=== PATIENT | male | born 1955 | race Caucasian/White ===

== ENCOUNTER 2023-05-28 13:22 | Inpatient (IN) | payer MEDICARE, SELFPAY ==
[2023-05-28] VITALS (31 sets, daily range): BP systolic 95–160; BP diastolic 58–139; BMI 24.1; BMI 23.6
[2023-05-28 11:15] LABS: % Basophils 0.5 % (0-2); % Eosinophils 0.5 % (0-6); % Immature Granulocytes 0.2 % (0-0.5); % Lymphocytes 23.6 % (20.5-51.1); % Monocytes 7.5 % (1.7-9.3); % Neutrophils 67.7 % (42.2-75.2); Absolute Lymphocytes 1.6 10^3/uL (1.2-3.4); Absolute Monocytes 0.5 10^3/uL (0.1-0.6); Absolute Neutrophils 4.5 10^3/uL (1.4-6.5); Mean Corp Hgb Conc. 30.3 g/dL (33.0-37.0); Mean Corpuscular Hgb 24.4 pg (27.0-31.0); Mean Corpuscular Volume 80.5 fL (80.0-94.0); Mean Platelet Volume 8.8 fL (7.4-10.4); Nucleated Red Blood Cells % 0.3 % (-); Platelet Count 428 10^3/uL (130-400); Red Blood Cell Count 2.21 10^6/uL (4.70-6.10); Red Cell Dist. Width 16.8 % (11.5-14.5); White Blood Cell Count 6.7 10^3/uL (4.8-10.8)
[2023-05-28 11:24] LABS: INR 1.05
[2023-05-28 11:25] LABS: ALT (SGPT) 23 U/L (0-50); AST (SGOT) 27 U/L (17-59); Albumin 3.9 g/dl (3.5-5.0); Alkaline Phosphatase 121 U/L (38-126); Blood Urea Nitrogen 19 mg/dl (9-20); Calcium 8.7 mg/dl (8.4-10.2); Carbon Dioxide 23 mmol/L (22-30); Chloride 108 mmol/L (98-107); Estimated Creatinine Clearance 83 ml/min; Glucose 107 mg/dl (70-99); Potassium 4.1 mmol/L (3.5-5.1); Sodium 137 mmol/L (135-145); Total Bilirubin 0.5 mg/dl (0.2-1.3); Total Protein 6.6 g/dl (6.3-8.2); eGFR > 60.00
[2023-05-28 11:31] LABS: Hematocrit 17.8 % (39.0-52.0); Hemoglobin 5.4 g/dL (13.0-18.0)
[2023-05-28 11:39] LABS: Troponin I 0.416 ng/ml
--- NOTE | 2023-05-28 11:56 | ED.GENMED ---
History of Present Illness
General
Chief Complaint: Cardiac Symptoms
Source: patient and physician
Exam Limitations: none
Time Seen by Provider: 05/28/23 11:04
Nursing documentation reviewed up to this point in time: agreed with
Travel History
Have you had any contact with someone who has COVID-19?: No
Do you have any symptoms of coronavirus? Fever > 100 degrees, chills, cough, shortness of breath, sore throat, loss of taste or smell, muscle aches, or headache?: No
History of Present Illness
History of Present Illness:
67-year-old male presents emergency department due to intermittent chest pain and shortness of breath. He was seen in the office at Dr. Mcginnis, and sent to the emergency department. He is to get a CABG. He denies any chest pain at this time.
Initial EKG was concerning for a STEMI. Discussed with Dr. Mcginnis, who did not suspect that it was a STEMI. He suspects LVH. Patient denies blood in his stool.
Past History
Past History
ED Past Medical History: None
ED Past Surgical History: Cardiac (Cardiac catheterization) and Other (Carotid stent)
Social History
Tobacco: Smoker
Personal: Single
Living: with roommate
Employment: Employed
Review of Systems
Review of Systems
Allergies reviewed?: Yes
All Other Systems: Not applicable
Constitutional: Reports fatigue
EENT: Reports no symptoms
Respiratory: Reports trouble breathing
Cardiac: Reports chest pain
ABD/GI: Reports no symptoms; Denies bloody stools or black stools
: Reports no symptoms
Musculoskeletal: Reports no symptoms
Skin: Reports no symptoms
Neurological: Reports no symptoms
Endocrine: Reports no symptoms
Hematologic/Lymphatic: Reports no symptoms
Psychiatric: Reports no symptoms
Phy Exam
Physical Exam
Physical Exam:
Physical Exam
General: no apparent distress, not acutely ill
Neck: supple. no meningeal signs. normal posterior pharynx
Heart: s1/s2 regular rate and rhythm, no murmur. equal radial
pulses.
HEENT: Pupils equal round reactive to light, EOMI
Lungs: no acute respiratory distress. clear bilaterally
Abdomen: normal bowel sounds. not tender. no CVAT
Neuro: alert and oriented. no focal neurological deficits cranial nerves II through XII intact
Skin: no rash, pale
Psychiatric: well kept. interactive and cooperative
Extremities: no edema. no calf tenderness. negative homans. good distal pulses
Scores
Heart Score for Chest Pain Patients
STEMI patient?: No
History: Highly Suspicious
ECG: Significant ST-Depression
Age: >/= 65 years
Risk Factors: >/= 3 Risk Factors or History of CAD
Troponin: >/= 3 x Normal Limit
Heart Score for Chest Pain Patients: 10
Heart Score Risk: 72.7 % MACE over next 6 weeks
Course
Orders/Labs/Results
Orders:
Orders
05/28/23 10:44
EKG [Electrocardiogram (*1)] Urgent
Reason for Study: Chest Pain
EKG- Treatment ONCE
05/28/23 11:02
Cardiac Monitoring- Treatment ONCE
IV Insert/Care/Rem.- Treatment PRN
05/28/23 11:03
Complete Blood Count/With Diff Urgent
Comprehensive Metabolic Panel Urgent
PTT Urgent
Comment: ADD ON
Prothrombin Time Urgent
Troponin I Urgent
05/28/23 11:45
Add On- LAB Urgent
Tests Added?: ptt
Type+Screen Urgent
05/28/23 11:46
* Blood Bank Products Urgent
Blood Bank Products: *Packed RBC Leuko(PRBC's)
Quantity: 1
Transfuse Today: Yes
Reason: Anemia
Abnormal Lab Results
05/28/23
11:03
RBC 2.21 L 10^6/uL
(4.70-6.10)
Hgb 5.4 L* g/dL
(13.0-18.0)
Hct 17.8 L* %
(39.0-52.0)
MCH 24.4 L pg
(27.0-31.0)
MCHC 30.3 L g/dL
(33.0-37.0)
RDW 16.8 H %
(11.5-14.5)
Plt Count 428 H 10^3/uL
(130-400)
Chloride 108 H mmol/L
(98-107)
Glucose 107 H mg/dl
(70-99)
Troponin I 0.416 H* ng/ml
05/28/23 11:03
05/28/23 11:03
Vital Signs
Initial and Last Documented VS:
Initial Vital Signs
Temp Pulse Resp BP Pulse Ox
98.7 F 120 20 138/94 99
05/28/23 10:42 05/28/23 10:42 05/28/23 10:42 05/28/23 10:42 05/28/23 10:42
Last Documented Vital Signs
Temp Pulse Resp BP Pulse Ox
98.7 F 98 18 111/71 99
05/28/23 10:42 05/28/23 11:15 05/28/23 11:15 05/28/23 11:03 05/28/23 11:15
MDM/Problems Addressed
Differential Diagnosis Includes:
STEMI, ACS
MDM/Problems Addressed:
67-year-old male with unstable angina, anemia. Discussed with Dr. Mcginnis who does not suspect STEMI. Admit to hospitalist, will consult with cardiology and CT surgery for eventual CABG.
Chronic conditions affecting care: DM and CAD
Acute Exacerbation and/or Progression of Chronic Illness: DM and CAD
*Pulse Oximetry
Patient hypoxic: no
*EKG
Interpreted by ED Provider?: Yes
EKG Intrepretation Date: 05/28/23
EKG Intrepretation Time: 10:54
Interpretation: abnormal
Comparison EKG: changes noted
Heart Rate: 103
Rate: tachycardiac
Rhythm: sinus
[place]: normal axis
Interval: normal interval
QRS Pattern: left vent hypertrophy
Ischemia: ST elevation
*Supervisor Hand Silvering Interpretation
Rate: normal
Interpretation: normal
Heart Rate: 95
Rhythm: sinus
*Critical Care Note
Total Time (30-74mins, 75-104mins- exclusive of procedures): 30
comment:
Critical care statement: A total of 30 minutes of critical care time was provided for this patient. This includes management of unstable vital signs, evaluation of the patient at bedside, reviewing the patient's pertinent medical records, discussion
with consultants, review of old EKGs and review of pertinent medical records. This time with separate from time utilized to perform the aforementioned documented procedures
Data Reviewed
Review of Other/Old Records Reveals: Operative Reports (Prior vascular stent placed in carotid artery by Dr. Triplett 04/14/2023)
Source: records
Patient Management
Discussion with other providers: Hospitalist and Machine Striper (Cardiology)
Escalation/DeEscalation of care consider admission/obs:
Admission indicated
ED Attending Note
-
Portions of this chart may have been created with voice recognition software.� Occasional wrong word or��sound alike� substitutions may have occurred due to the inherent limitations of voice recognition software.
Discharge Plan
Departure
Patient Disposition: Admit
Date of Disposition: 05/28/23
Time of Disposition: 11:43
Admit to: IVU
Presentation/result/management discussed w/ accepting MD/DO: Hospitalist
Patient with high blood pressure during this ER visit?: Yes
Condition: Good
Discharge Problem:
Anemia, Non-ST elevation WA (NSTEMI)
Prescriptions:
No Action
atorvastatin 80 mg Tablet
80 mg PO QPM Qty: 30 0RF
thiamine HCl (vitamin B1) 100 mg Tablet
100 mg PO BID Qty: 60 0RF
aspirin 81 mg Tablet,Chewable
81 mg PO DAILY Qty: 60 0RF
folic acid 1 mg Tablet
1 mg PO DAILY Qty: 30 0RF
metoprolol succinate 25 mg Tablet Extended Release 24 Hr
25 mg PO DAILY Qty: 30 0RF
Farxiga 10 mg Tablet
10 mg PO DAILY Qty: 30 0RF
clopidogrel [Plavix] 75 mg Tablet
75 mg PO DAILY
Referrals:
Darell Carver DO [Family Provider] -
Interventions
Interventions:
*Risk Screen - Suicide Last Done: 05/28/23 11:04
*General Assessment Last Done: 05/28/23 11:04
*Neglect/Abuse Screening Last Done: 05/28/23 11:04
ED- Fall Risk Assessment Last Done: 05/28/23 11:04
ED- Pulmonary Assessment Last Done: 05/28/23 11:04
ED- Cardiac Assessment Last Done: 05/28/23 11:04
--- NOTE | 2023-05-28 12:01 | PHANOTE ---
05/28/2023, [facility], spoke to pt. to obtain their medication history; pt. states that he stopped taking his Plavix 75 mg for about 3 days for his upcoming surgery. Additionally, pt. stopped taking his Atorvastatin, Folic Acid, and Metoprolol
Succinate on Thursday (05/26/2023) because he was not feeling well. Last dose of these meds. were Thursday (05/25/2023).
[2023-05-28 12:07] LABS: APTT 38.4 Sec (23.4-35.0)
--- NOTE | 2023-05-28 12:19 | HPS.HSE ---
Addendum entered and electronically signed by Eduard Ellis MD 05/28/23 14:39:
I saw and examined the patient.
The INSURANCE CASE MANAGER's note was reviewed and I agree with the note.
Patient is 67-year-old male with past medical history of CAD, Hypertension, Hyperlipidemia, systolic heart failure, history of tobacco/alcohol use, IDDM, recent right CEA was sent to ER for further evaluation as patient was having ongoing shortness
of breath/orthopnea for few weeks. Patient had left heart catheterization on 03/02/23 70% lesion in mild RCA, 80% lesion in distal left main, 80% and ostial circumflex and subtotal occlusion of proximal LAD percent lesion in origin at large obtuse
marginal. EF noted to be 30%. patient was planned to have an outpatient cardiothoracic surgery evaluation for surgical revascularization. For last few weeks patient noted to having some chest discomfort and required to take 1 dose of nitro
yesterday with improvement in symptoms. Patient was evaluated by cardiology in office today and was sent into ER for further evaluation. In ER lab workup showing patient significantly anemic with hemoglobin 5.5. Patient denies of having any
history of previous blood problems, no reported black stools or stacey blood in stool. From cardiac perspective patient is chest pain free. Denies any ongoing abd pain/nausea.
HEENT: No pallor, cyanosis, or jaundice. Throat clear.
NECK: Supple. No JVD.
RESPIRATORY: Lungs clear to auscultation.
CVS: S1, S2 normal. RRR. No murmur, rub or gallop.
ABDOMEN: Soft, non-tender. No distension. BS+/normal.
EXTREMITIES: No peripheral cyanosis or edema.
SOLE MOLDING MACHINE OPERATOR: AOx3. No focal deficits.
Unstable angina
CAD
Chronic Systolic HF
Troponin elevation
-Ongoing complaints of orthopnea/shortness of breath and periodic chest discomfort. Required to take nitro yesterday.
- troponin elevated to 0.4 > repeat ordered
-EKG assessment elevation in anteroseptal leads, discussed with cardiology and somewhat of a chronic finding. (present on previous EKG)
-Patient anemic requiring blood transfusion in ER. Discussed with cardiology and recommendation for continuation of antiplatelet therapy.
-TTE yesterday showing EF 25 to 30%. Mild MR/
-cardio following
Iron def anemia
-SI 31 and saturation 6%, Ferriting pending
-hbg ~ 5.5 - getting 2 u prbc
-FOBT neg in ER
-discussed with GI and will require eventual endoscopic evaluation
Full code
Original Note:
Family Physician
-
Family Physician: Darell Carver
Chief Complaint
-
Chest pain, shortness of breath, MARTINEZ, orthopnea
History of Present Illness
67-year-old male sent from [facility] cardiology for unstable angina. On arrival to the ER was noted to have NSTEMI with troponin of 0.416 and anemic hemoglobin 5.4 guaiac negative. He was noted to be anemic 8.2 postop CEA on 04/15/2023. The patient
reports he has had chest pain midsternal to left axilla on and off for the past 3 weeks worsening over the past several days with shortness of breath, MARTINEZ and orthopnea. Last night he reports profound orthopnea and had to sleep upright to help
alleviate chest pain. He reports last week he took 1 nitroglycerin that helped with his chest pain. He states he had outpatient cardiac cath in February and was told he needed a CABG x 4 vessel repair. He currently denies chest pain at the moment,
headache, dizziness, cough, fever, chills, abdominal pain, nausea, vomiting, diarrhea, black stools. He is status post right CEA on 04/15/2023.
He has past medical history of severe CAD/IL/cardiac cath 02/20/2023, ischemic cardiomyopathy, nicotine abuse, alcohol abuse, HLD, DM2, right hand skin cancer with removal
Medical History
Past Medical History
Past Medical History: Reports Other
Additional Past Medical History:
severe CAD/IL/cardiac cath 02/20/2023, ischemic cardiomyopathy, nicotine abuse, alcohol abuse, HLD, DM2, right hand skin cancer with removal
Past Surgical History: Reports Other (Right CEA 04/15/2023)
Social History
Tobacco: Former Smoker (50 years 1 to 3 pack/day stopped 5 days ago 05/23/2023, stopped marijuana use x 50 years April 27, 2023)
Alcohol: Former (6-8 beers daily x 40 years stopped February 2023)
Personal: Single
Living: Alone
Employment: Not Employed
Family History
Family History: Other (Mother age 80s unsure, father [place] also history DM2 age 68 siblings unknown)
Allergies / Home Medications
Allergies reflects when Allergies were last updated in [employer].
Home Medications with original date entered in [employer]
Allergy/Medication List:
Allergies
Allergy/AdvReac Type Severity Reaction Status Date / Time
No Known Allergies Allergy Verified 04/14/23 07:22
Home Medications
folic acid 1 mg tablet 1 mg PO DAILY #30 tabs 03/03/23
metoprolol succinate 25 mg tablet,extended release 24 hr 25 mg PO DAILY #30 tabs 03/03/23
thiamine HCl (vitamin B1) 100 mg tablet 100 mg PO BID #60 tabs 03/03/23
clopidogrel 75 mg tablet (Plavix) 75 mg PO DAILY Blood Clot Prevention/Tx 04/10/23
aspirin 81 mg tablet,delayed release 81 mg PO DAILY 05/28/23
atorvastatin 80 mg tablet 80 mg PO HS 05/28/23
dapagliflozin propanediol 5 mg tablet (Farxiga) 5 mg PO DAILY 05/28/23
isosorbide mononitrate 30 mg tablet,extended release 24 hr 30 mg PO DAILY 05/28/23
nitroglycerin 0.4 mg sublingual tablet 0.4 mg sublingual [id number] PRN chest pain 05/28/23
Review of Systems
-
History Source: Patient
A 12 point ROS was completed and negative except as noted: Yes
Constitutional: Reports Fatigue; Denies Fever or Chills
EENT: Denies Sore Throat or Runny Nose
Respiratory: Reports Trouble Breathing (MARTINEZ, orthopnea); Denies Cough
Cardiac: Reports Chest Pain (Midsternal to left axilla); Denies Diaphoresis, Palpitations or Syncope
Abdomen/GI: Denies Abdominal Pain, Nausea, Vomiting, Diarrhea, Constipated, Bloody Stools or Black Stools
: Denies Dysuria, Frequency, Flank Pain, Incontinence or Difficulty Voiding
Musculoskeletal: Denies Joint Pain or Edema
Skin: Denies Itching or Rash
Neurological: Denies Dizzy, Headache or Weakness
Endocrine: Reports No Symptoms
Hematologic/Lymphatic: Reports No Symptoms
Psych: Reports Calm
Physical Exam
Vital Signs
Vital Signs
Temp Pulse Resp BP Pulse Ox
98.7 F 98 18 111/71 99
05/28/23 10:42 05/28/23 11:15 05/28/23 11:15 05/28/23 11:03 05/28/23 11:15
Physical Exam
General: Comfortable and Conversant; No Pain, Fever or Chills
HEENT: NormoCephalic, Anicteric, PERRLA and No Ptosis
Respiratory: Clear; No Wheezes, Rales or Rhonchi
Cardiac: S1/S2 and Regular Rhythm; No Murmur, Rub, Gallop or Peripheral Edema
Breast: Deferred by me
GI: Soft, Non Tender, Non Distended, Normal Bowel Sounds and No Hepatosplenomegaly
Rectal: Hem Negative (Per ER provider exam)
Genito-urinary: Deferred by me
Musculoskeletal: No Clubbing, No Cyanosis and No Edema
Skin: Warm, Dry and Other (Right-sided neck CEA incision intact negative drainage negative erythema); No Rash
Neuro: AO x 3, No Motor Deficits, Nonfocal/grossly intact and No Sensory Deficits; No Slurred Speech, Facial Droop or Tremors
Psych: Calm
Laboratory Results
-
05/28/23 11:03
05/28/23 11:03
Laboratory Results
PT 14.0 Sec (11.4-14.6) 05/28/23 11:03
INR 1.05 05/28/23 11:03
APTT 38.4 Sec (23.4-35.0) H 05/28/23 11:03
Total Bilirubin 0.5 mg/dl (0.2-1.3) 05/28/23 11:03
AST 27 U/L (17-59) 05/28/23 11:03
ALT 23 U/L (0-50) 05/28/23 11:03
Alkaline Phosphatase 121 U/L (38-126) 05/28/23 11:03
Troponin I 0.416 ng/ml H* 05/28/23 11:03
Impression/Plan
-
Impression/plan:
Admit to IVU
#ACUTE IL
#Hx severe CAD/IL -Hx cardiac cath 02/20/2023
BP 111/71, HR 98
-Troponin 0.416 will trend
-Trend EKGs
-Consult [facility] cardiology
-Consult CT surgery-was due for CABG x 4 vessel repair
-Patient for possible right heart cath once hemodynamically stable
-Aspirin 81 mg daily, Plavix 75 mg daily, Imdur 30 mg daily, metoprolol succinate 25 mg daily
#Hx ischemic cardiomyopathy
2D echo 05/27/2023: EF 25%, severely reduced LV function, mild TR/MR/ Hx of right carotid stenosis
#Symptomatic anemia
Hgb 5.4 stool guaiac negative Hgb 8.2 on 04/15/2023 postop right CEA prior baseline 11�12 in 02/2023
1 unit PRBC ordered in ER we will add additional 1 unit
-Check iron panel, B12, folate
#Former smoker
Smoked 60 years 1 to 3 pack/day -stopped 1 week ago in May
also marijuana use 60 years stopped April 2023
#Former alcohol abuse
Drinks 6-8 beers daily x 40 years stopped February 2023
#HLD
Check lipid profile
Continue atorvastatin 80 mg at bedtime
#DM 2
Accu-Cheks SSI, check HgbA1c
Right hand skin cancer removal
DVT prophylaxis
SCDs
Full code
[2023-05-28 14:12] LABS: Iron 31 ug/dl (49-181)
--- NOTE | 2023-05-28 14:20 | W.PN.CD ---
Today's Communication / Plan
-
Plan as noted
Impression / Plan
-
Primary trainer Dr. Parra
67-year-old male with history of multivessel coronary artery disease undergoing evaluation for CABG, ischemic cardiomyopathy, carotid disease, TCAR 04/14/2023 , hypertension, hypercholesterolemia, tobacco abuse who was seen in the office by
Fidel today ( see note). Patient reports that over the last 3 weeks he has had increased episodes of chest discomfort. He will have exertional chest discomfort that takes about 5 minutes to resolve. He has taken nitroglycerin on some occasions.
It sounds as if the episodes have lasted as long as 10 minutes but has not had any longer episodes. Increased frequency over the last 3 weeks currently chest pain-free. ECG in ER shows sinus rhythm with prior anterior lateral WA there is anterior
ST elevation which is more prominent than last ECG when his heart rate was significantly slower but in review of other prior ECGs from April and February patient's had persistent anterior ST elevation. Labs are notable for hemoglobin of 5 patient
denies having any bleeding issues no black stool or blood in his stool. He also has some exertional shortness of breath but no orthopnea or lower extremity edema
Chest pain. Appears to be secondary to underlying multivessel disease and development of severe anemia with hemoglobin of 5.4. Denies acute bleeding.
-Treat anemia
-Serial troponins
-Continue current medical therapy.
-With hemoglobin of 5.4 of unclear etiology okay to hold Plavix but will need to continue aspirin.
.
Abnormal troponin likely related to underlying multivessel coronary artery disease and severe anemia. Patient currently chest pain-free patient's had history of abnormal ECGs with evidence of prior anterolateral WA and residual ST elevation.
Considering all the issues above it is not clear this represent an acute type I WA. Considering all the issues above including severe anemia no plan for intervention at this time continue supportive care as noted above.
.
Coronary artery disease. Patient is undergoing evaluation for coronary artery bypass grafting. Timing will be dependent on patient's medical issues including anemia.
Severe, symptomatic anemia exact cause unclear.
-Evaluation and treatment as directed by the hospitalist.
-Hold Plavix
Cardiomyopathy. Ejection fraction 25 to 30% by echo 05/27/2023 mild aortic stenosis suspected.
-Currently respiratory status is stable and patient is euvolemic.
-Monitor closely with administration of PRBCs. Would give additional IV Lasix after PRBCs administered.
History of tobacco abuse denies smoking in the last 5 days
Cardiac catheterization 02/20/2023
CONCLUSIONS
1.� Right dominant circulation with 70% lesion in the mid RCA, an eccentric, 80% lesion in the distal left main extending into the 70% ostial LAD and 80% ostial circumflex lesions, a subtotal occlusion of the proximal LAD immediately proximal to the
origin of the diagonal and a 70% lesion in the origin of the large obtuse marginal.
2.� Normal filling pressures (LVEDP = 10 mmHg at 65.3 kg).
3.� Severe systolic cardiomyopathy on echocardiography (LV ejection fraction = 30%).
Physical Exam
Vital Signs/Labs
Vital Signs
Temp Pulse Resp BP Pulse Ox
98.7 F 101 19 135/119 98
05/28/23 10:42 05/28/23 12:45 05/28/23 12:45 05/28/23 12:00 05/28/23 12:45
05/27/23 05/28/23 05/29/23
06:59 06:59 06:59
Actual Weight 67.6 kg
05/28/23 11:03
05/28/23 11:03
PT 14.0 Sec (11.4-14.6) 05/28/23 11:03
INR 1.05 05/28/23 11:03
APTT 38.4 Sec (23.4-35.0) H 05/28/23 11:03
LAB Results
05/28/23
11:03
Troponin I 0.416 H*
Physical Exam
Constitutional: No acute distress
EENT: Anicteric
Cardiovascular: Rhythm & rate is regular
Respiratory: Lungs clear to auscul.
GI: Soft and Non tender
Neuro/Psych: Alert and Oriented
Other: Other
Data Reviewed
-
Date of Service: May 28, 2023
Medical Decision Making: Reviewed Test Results
EKG: Tracing Personally Visualized and interpreted
Echo: Report Reviewed by me
Medical Tests (PFT, Pathology etc): Report Reviewed by me
Labs: Labs Reviewed by me
[2023-05-28 14:21] LABS: Percent Saturation 6 % (20-50); Total Iron Binding Capacity 505 ug/dl (261-462)
[2023-05-28 15:35] LABS: Troponin I 0.597 ng/ml
--- NOTE | 2023-05-28 15:47 | CON.GI ---
Addendum entered and electronically signed by Clive Coburn MD 05/28/23 20:15:
I saw and examined the patient.
The [employer] FAB TECHNICIAN's note was reviewed and I agree with the note.
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 Pt noted to have NSTEMI in ER with elevated troponin (0.416). Labs also showed significantly decreased Hgb at 5.4. no overt GI bleeding. heme neg in ED
-- symptomatic severe anemia - no overt GI bleeed. heme neg in ED. No prior EGD or colonoscopy. last plavix 05/25
-- chest pain/ elevated trop likely demand ischemia
-- CAD - awaiting CABG
-- cardiomyopathy - EF 25-30%
-- s/p CEA 04/15/23
-- ETOH abuse
plan
monitor H/H
check iron studies
continue to hold plavix
will discuss with regarding timing of endoscopic eval for anemia ( after 5 days of plavix wash out and medically stable )
will follow
Original Note:
Consultation
-
Date/Time Consultation Requested: 05/28/23
Date/Time Consultation Performed: 05/28/23 8385
Requesting Provider: Dr. Ellis [id number]
Performing Provider: Madison Rai PA-C / Dr. Coburn
Reason for Consultation: anemia
Medical History
Chief Complaint / HPI
Chief Complaint: anemia
History of Present Illness:
This is a 67 year old male wth a past medical history of multivessel coronary artery disease (s/p CO 02/2023 with cardiac catheterization, currently undergoing evaluation for recommended CABG), carotid disease (s/p CEA 04/15/23), HTN,
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 Pt noted to have NSTEMI in ER with elevated troponin (0.416). Labs also showed significantly decreased Hgb at 5.4.
He is currently being transfused 1 unit PRBCs at the time of my exam. He is unaware of any prior episodes of anemia. Reviewing his labs, he had a Hgb level of 12 in February 2023, which trended downward from 9.7 in March to 8.2 in April, and
now 5.4. Patient denies any gross bleeding - denies black, tarry or bloody stool; no hematemesis or hematuria. He is not a vegetarian. He is on both Plavix and aspirin. He occasionally takes NSAIDs. He stopped drinking alcohol in February 2023, prior
to that was drinking a 6-pack of beer daily. He does smoke marijuana. He smokes cigarettes as well, up to 3 PPD, but states he is now trying to quit. Last smoked 4 days ago. Pt denies chest pain or abdominal pain. He was experiencing exertional
dyspnea, even with minimal exertion. He does complain of fatigue, dizziness. No nausea, vomiting, heartburn, reflux or dysphagia. He has never had an endoscopy or colonoscopy. There is no family history of GI malignancies.
Past Medical History
Past Medical History: CAD, HTN, Hypercholesterolemia, NIDDM and CO
Past Surgical History: Other (cardiac catheterization 02/20/23, CEA 04/15/23)
Social History
Tobacco: Former Smoker (quit 4 days ago; was smoking up to 3 PPD x 50 years)
Alcohol: Former (quit in February 2023; was previously drinking 6 beers/day)
Drug: Marijuana
Personal:
Living: With Family
Family History
Family History: Other (no family history of GI malignancies)
Allergies / Home Medications
Allergy/AdvReac Type Severity Reaction Status Date / Time
No Known Allergies Allergy Verified 04/14/23 07:22
Medication Instructions Recorded
folic acid 1 mg tablet 1 mg PO DAILY #30 tabs 03/03/23
metoprolol succinate 25 mg 25 mg PO DAILY #30 tabs 03/03/23
tablet,extended release 24 hr
thiamine HCl (vitamin B1) 100 mg 100 mg PO BID #60 tabs 03/03/23
tablet
clopidogrel 75 mg tablet (Plavix) 75 mg PO DAILY Blood Clot 04/10/23
Prevention/Tx
aspirin 81 mg tablet,delayed 81 mg PO DAILY 05/28/23
release
atorvastatin 80 mg tablet 80 mg PO HS 05/28/23
dapagliflozin propanediol 5 mg 5 mg PO DAILY 05/28/23
tablet (Farxiga)
isosorbide mononitrate 30 mg 30 mg PO DAILY 05/28/23
tablet,extended release 24 hr
nitroglycerin 0.4 mg sublingual 0.4 mg sublingual [id number] PRN 05/28/23
tablet chest pain
Review of Systems
-
History Source: Patient
All other systems: A 12 pt ROS was Negative except as stated above in HPI
Vital Signs
Temp Pulse Resp BP Pulse Ox
98.0 F 103 14 101/77 98
05/28/23 14:38 05/28/23 14:38 05/28/23 14:38 05/28/23 14:38 05/28/23 12:45
Physical Exam
Exam
General: Well Developed, Well Nourished and No Apparent Distress
Respiratory: Clear
Cardiac: Regular Rhythm
GI: Soft, Non Tender, Non Distended and Normal Bowel Sounds
Rectal: Other (heme negative on ER exam)
Musculoskeletal: No Edema
Skin: Warm and Dry
Neuro: AO x 3
Psych: Calm
Results
WBC 6.7 10^3/uL (4.8-10.8) 05/28/23 11:03
Hgb 5.4 g/dL (13.0-18.0) L* 05/28/23 11:03
Hct 17.8 % (39.0-52.0) L* 05/28/23 11:03
MCV 80.5 fL (80.0-94.0) 05/28/23 11:03
Plt Count 428 10^3/uL (130-400) H 05/28/23 11:03
Absolute Neuts (auto) 4.5 10^3/uL (1.4-6.5) 05/28/23 11:03
PT 14.0 Sec (11.4-14.6) 05/28/23 11:03
INR 1.05 05/28/23 11:03
APTT 38.4 Sec (23.4-35.0) H 05/28/23 11:03
Sodium 137 mmol/L (135-145) 05/28/23 11:03
Potassium 4.1 mmol/L (3.5-5.1) 05/28/23 11:03
Chloride 108 mmol/L (98-107) H 05/28/23 11:03
Carbon Dioxide 23 mmol/L (22-30) 05/28/23 11:03
BUN 19 mg/dl (9-20) 05/28/23 11:03
Creatinine 0.8 mg/dL (0.7-1.3) 05/28/23 11:03
Calcium 8.7 mg/dl (8.4-10.2) 05/28/23 11:03
Total Bilirubin 0.5 mg/dl (0.2-1.3) 05/28/23 11:03
AST 27 U/L (17-59) 05/28/23 11:03
ALT 23 U/L (0-50) 05/28/23 11:03
Alkaline Phosphatase 121 U/L (38-126) 05/28/23 11:03
Diagnostic Image Results:
Chest x-ray, 05/28/23:
No radiographic evidence for acute cardiopulmonary disease.
Prior GI Procedures:
EGD: never
Colonoscopy: never
Assessment / Plan
-
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 Pt noted to have NSTEMI in ER with elevated troponin (0.416). Labs also showed significantly decreased Hgb at 5.4. He is unaware of any prior episodes of anemia.
Reviewing his labs, he had a Hgb level of 12 in February 2023, which trended downward from 9.7 in March to 8.2 in April, and now 5.4. Patient denies any bleeding - denies black, tarry or bloody stool; no hematemesis or hematuria. He is not a
vegetarian. He is on both Plavix and aspirin. He occasionally takes NSAIDs. He stopped drinking alcohol in February 2023, prior to that was drinking a 6-pack of beer daily. He does smoke marijuana. He smokes cigarettes as well, up to 3 PPD, but
states he is now trying to quit. Last smoked 4 days ago. Pt denies chest pain or abdominal pain. He was experiencing exertional dyspnea, even with minimal exertion. He does complain of fatigue, dizziness. No nausea, vomiting, heartburn, reflux or
dysphagia. He has never had an endoscopy or colonoscopy. There is no family history of GI malignancies.
Anemia, severe (Hgb 5.4), on Plavix and aspirin
-transfuse; continue to closely trend Hgb
-per Cardiology, OK to hold Plavix but will continue on aspirin (pt states his last dose of Plavix was 05/25/23 in the AM)
-iron studies confirm iron deficiency anemia
-endoscopy and colonoscopy for further evaluation of the CRISTOFER - to discuss timing with Dr. Coburn and Cardiology
Alcohol Abuse
-pt reports he quit drinking since February 2023
-LFTs normal
Other medical problems managed as per Hospitalist and Cardiology.
We will follow.
-
-
Thank you for consultation and allowing me to participate in the patient's care. Please call the director occupational GI physician during the after hours with any questions or concerns.
[2023-05-28 16:09] LABS: Ferritin 9.1 ng/ml (17.9-464.0)
[2023-05-28 16:40] LABS: Folate > 20.0 ng/ml (2.76-20); Vitamin B12 408 pg/ml (239-931)
--- NOTE | 2023-05-28 18:14 | CONSULT.CT ---
Consultation
-
Date/Time Consultation Requested: 05/28/23 1800
Date/Time Consultation Performed: 05/28/231814
Requesting Provider: Caleb
Performing Provider: Jared HANELY for Sabino AMIN
Reason for Consultation: CAD
Patient History
Physicians
Family Physician: Mehul
Outpatient Sensor Specialist: Jennifer
Inpatient Sensor Specialist: Fidel
History of Present Illness
67-year-old male with past medical history of CAD, smoking 3 packs/day x 50 years recently quit, carotid stenosis, hypertension, hyperlipidemia, systolic heart failure, diabetes presented to [facility] on 05/28 for ongoing shortness of
breath/orthopnea times several weeks. Of note he recently had a right carotid TCAR on 04/14/[address] Triplett and was started on Plavix. He also was recently admitted in February after some chest pain and was found to have multivessel disease (70%
lesion in mild RCA, 80% lesion in distal left main, 80% and ostial circumflex and subtotal occlusion of proximal LAD percent lesion in origin at large obtuse marginal). EF was found to be 25 to 30% and was followed by Dr. Escoto outpatient for
surgical revascularization. His last office visit was. Today he was in the cardiology office and was sent to the emergency room for further evaluation for his prolonged shortness of breath and lethargy. While in the ER he was found to be
profoundly anemic with a hemoglobin of 5.5. He denies having any history of anemia and reports no black or stacey blood stools at that time he was chest pain-free. CT surgery was consulted continued work up.
Past Medical History
Past Medical History: Angina, CAD, HTN, Hypercholesterolemia and NIDDM
Past Surgical History
R TCAR 04/14/23
Dental History
Full Dentures
Family History
Mother: at Age (75)
Father: at Age (64) and Cause of ([place] Diabetes)
Family Medical History: CAD
Social History
Alcohol: Daily
Drug: Marijuana
Tobacco: Smoker
Personal:
Living: With Spouse
Employment: Employed
Allergies
Allergy/AdvReac Type Severity Reaction Status Date / Time
No Known Allergies Allergy Verified 04/14/23 07:22
Home Medications
Medication Instructions Recorded Confirmed Type
folic acid 1 mg tablet 1 mg PO DAILY #30 tabs 03/03/23 05/28/23 Rx
metoprolol succinate 25 mg 25 mg PO DAILY #30 tabs 03/03/23 05/28/23 Rx
tablet,extended release 24 hr
thiamine HCl (vitamin B1) 100 mg 100 mg PO BID #60 tabs 03/03/23 05/28/23 Rx
tablet
clopidogrel 75 mg tablet (Plavix) 75 mg PO DAILY Blood Clot 04/10/23 05/28/23 History
Prevention/Tx
aspirin 81 mg tablet,delayed 81 mg PO DAILY 05/28/23 05/28/23 History
release
atorvastatin 80 mg tablet 80 mg PO HS 05/28/23 05/28/23 History
dapagliflozin propanediol 5 mg 5 mg PO DAILY 05/28/23 05/28/23 History
tablet (Farxiga)
isosorbide mononitrate 30 mg 30 mg PO DAILY 05/28/23 05/28/23 History
tablet,extended release 24 hr
nitroglycerin 0.4 mg sublingual 0.4 mg sublingual [id number] PRN 05/28/23 05/28/23 History
tablet chest pain
Review of Systems
-
History Source: Patient
General: Reports Fatigue
HEENT: Reports No Symptoms
Respiratory: Reports SOB
Cardiac: Reports Chest Pain and CAD
Abdomen/GI: Reports No Symptoms
: Reports No Symptoms
Musculoskeletal: Reports No Symptoms
Skin: Reports No Symptoms
Neurological: Reports No Symptoms
Vascular: Reports No Symptoms
Physical Exam
Vital Signs
Temp 97.9 F 05/28/23 16:53
Temp route: Oral 05/28/23 16:53
Pulse 105 05/28/23 17:45
Resp Rate 18 05/28/23 17:45
Blood pressure 160/139 05/28/23 17:00
Blood pressure extremity used: Right upper arm 05/28/23 16:53
Position: Sitting 05/28/23 16:53
MAP (cuff-Edgar Monitor) 148 05/28/23 17:00
SaO2 95 05/28/23 17:45
Actual Weight 66.4 kg 05/28/23 18:02
Body Mass Index (BMI) 23.6 05/28/23 18:02
Labs
05/28/23 11:03
05/28/23 11:03
PT 14.0 Sec (11.4-14.6) 05/28/23 11:03
APTT 38.4 Sec (23.4-35.0) H 05/28/23 11:03
Troponin I Cancelled 05/28/23 14:32
Diagnostic Studies
05/27 TTE
�Dilated LV with severely reduced LV function
�EF 25-3 0%.
�Mild tricuspid regurgitation.
�Mild mitral regurgitation.
�Mild aortic stenosis is suspected.
�Compared to the previous echo report 02/27/23 the findings are similar. Mild
�aortic stensosis is now suspected.
02/27/23 [facility]
CORONARY ANGIOGRAPHY
Dominance:� Right.
Left Main:� Normal size, bifurcating vessel.� There is a hazy opacity in the distal left main coronary artery.� This appears to be an eccentric, 80% lesion extending into the ostial LAD and ostial circumflex.
LAD:� Normal size vessel giving rise to 1 large diagonal.� There is a 70% ostial lesion as extension of the left main lesion.� There is a subtotal occlusion with bridging collaterals in the proximal vessel, immediately proximal to the origin of
the diagonal with RONEY II flow.
Ramus: Congenitally absent.
Circumflex:� Large size, nondominant vessel giving rise to 1 large marginal which subsequently divides into 4 daughter branches and supplies the entire inferolateral wall.� There is an 80% lesion in the origin as a function of the left main
lesion.� There is a 70% lesion in the origin of the large obtuse marginal.� The circumflex then terminates as a large posterolateral branch.
RCA:� Normal size, dominant vessel.� There is a long, 70% lesion in the mid vessel, just proximal to the proximal.
Exam
General: Well Developed, Well Nourished and No Apparent Distress
HEENT: Moist Mucous Membranes (pale)
Respiratory: Clear
Cardiac: S1/S2
GI: Soft and Non Tender
Rectal: Deferred by Provider
Skin: Warm and Dry
Neuro: AO x 3
Lymph: No Lymphadenopathy
Psych: Calm
Assessment / Plan
-
67-year-old male with past medical history listed above well-known to Dr. Escoto presented to [facility] on 05/28 with lethargy and shortness of breath. While in the ER he was found to be anemic with a hemoglobin of 5.5 and received
blood transfusions. CT surgery was consulted for ongoing surgical evaluation.
#CAD
#ICM
- Patient's case will be discussed with attending physician; will continue with ongoing surgical work up
- Eventual RHC when stable
- continue ASA per Cards
- Given's patient clinical status patient would need to medically optimized prior to surgery
- Continue to monitor for chest pain; continue Imdur
#Anemia
- Agree with GI consult;
- Heme test stools
- Continue CBCs daily
- After blood transfusions would diurese
#Hx of smoking
- continue smoking cessation education
--- NOTE | 2023-05-28 19:17 | PTCARENOTE ---
received pt from ED. pt ambulated from stretcher to bed, pt stated 'I am a little dizzy.' pts VSS. pt denies cp, sob at this time. pt resting in bed comfortably. 1 unit RPBCs running through LAC. pt oriented to unit. pt educated on plan of care and
pt verbalized understanding. call retana within reach.
[2023-05-28 20:09] LABS: Troponin I 0.582 ng/ml
[2023-05-28] MEDS: TYLENOL PO (20:13)
[2023-05-28] MEDS: VITAMIN B1 100 MG PO (20:23)
[2023-05-28] MEDS: LIPITOR 80 MG PO (20:23)
[2023-05-28] MEDS: LASIX 20 MG IV (22:08)
[2023-05-28 23:05] LABS: Glucose - Point of Care 146 mg/dl (70-99)
[2023-05-28] MEDS: TYLENOL 650 MG PO (23:46)
[2023-05-28] MEDS: NITROSTAT (SUBLINGUAL) 0.400000000000000022 MG SL (23:47)
[2023-05-28] MEDS: NITROGLYCERIN PREMIX 250 IV (23:56)
[2023-05-29] VITALS (42 sets, daily range): BP systolic 75–135; BP diastolic 56–102; BMI 23.3
[2023-05-29] MEDS: LASIX 20 MG IV (00:13)
--- NOTE | 2023-05-29 00:36 | W.PN.UPDATE ---
Update Note
Progress Note Update
-@~23:30 came in to see pt urgently for SOB and CP. Pt has known mv-CAD with more frequent recent episodes of CP, EF 25-30%, mild , mild MR, mild TR. Pt received 2 pRBCs today for Hg 5.4, followed by 20 iv Lasix at 10 pm. He urinated 400cc so far.
-pt states that CP is 1/10, but mostly bothered by SOB. pOx 97% on 2L, BP 115/76, nsr 95 bpm. ECG with persistent anterior ST elevations, similar to prior ECGs. On exam: + JVD, + HJR, few rales at bases, no wheeze, no edema b/l. CXR appears with
some volume overload, worse from 04/14/23.
-gave 1 sl Nitro and CP resolved. Will start iv Nitro (hold Imdur in am). Will give extra 20 iv Lasix now
-discussed with Dr. Hensley, pt and nurse
--- NOTE | 2023-05-29 01:07 | PTCARENOTE ---
assumed care of patient at the change of shift. bedside report from day shift RN completed. blood infusing. patient denied any pain. c/o shortness of breath-unchanged from admission per patient. sp02 96% on RA. lungs diminished at the bases. ST
100s. bp stable.
post blood transfusion-PRN dose of IV lasix 20 mg given at 2208. at that time, patient stated being comfortable.
during rounds at 2300, patient appeared short of breath. patient states urinating in the urinal which then exacerbated his breathing. labored breathing noted. diaphoretic. 92 on RA-placed patient on 2L NC. sp02 97%. blood sugar checked-146. patient
also stated having 2/10 R sided chest pain. EKG completed. new crackles heard at b/l lung bases. updated Tsilina CV PA and at the bedside. sublingual nitro x1 given with improvement. portable chest xray ordered and completed. nitro gtt started per
order at 5 mcg/min. another dose of 20 IV lasix given, see jul. HR SR 80s-90s. bp 106/78.
patient currently resting in bed. patient states 'feeling better.' improved breathing per patient and denies chest pain. urinated 450 cc yellow urine in the urinal. educated patient to inform RN with any changes. call retana within reach. calls
appropriately.
[2023-05-29 04:32] LABS: % Basophils 0.9 % (0-2); % Eosinophils 1.4 % (0-6); % Immature Granulocytes 0.2 % (0-0.5); % Monocytes 7.6 % (1.7-9.3); % Neutrophils 65.9 % (42.2-75.2); Absolute Basophils 0.1 10^3/uL (0-0.2); Absolute Eosinophils 0.1 10^3/uL (0-0.7); Absolute Lymphocytes 1.6 10^3/uL (1.2-3.4); Absolute Monocytes 0.5 10^3/uL (0.1-0.6); Absolute Neutrophils 4.3 10^3/uL (1.4-6.5); Hematocrit 22.9 % (39.0-52.0); Mean Corp Hgb Conc. 32.8 g/dL (33.0-37.0); Mean Corpuscular Hgb 26.2 pg (27.0-31.0); Mean Corpuscular Volume 80.1 fL (80.0-94.0); Mean Platelet Volume 9.2 fL (7.4-10.4); Nucleated Red Blood Cells % 0.3 % (-); Platelet Count 372 10^3/uL (130-400); Red Blood Cell Count 2.86 10^6/uL (4.70-6.10); Red Cell Dist. Width 15.9 % (11.5-14.5); White Blood Cell Count 6.5 10^3/uL (4.8-10.8)
[2023-05-29 04:37] LABS: Hemoglobin 7.5 g/dL (13.0-18.0)
[2023-05-29 05:00] LABS: ALT (SGPT) 20 U/L (0-50); AST (SGOT) 27 U/L (17-59); Albumin 3.5 g/dl (3.5-5.0); Alkaline Phosphatase 103 U/L (38-126); Blood Urea Nitrogen 24 mg/dl (9-20); Calcium 8.6 mg/dl (8.4-10.2); Carbon Dioxide 22 mmol/L (22-30); Chloride 102 mmol/L (98-107); Estimated Creatinine Clearance 66 ml/min; Glucose 100 mg/dl (70-99); HDL Cholesterol 28 mg/dl; LDL Cholesterol, Calculated 94 mg/dl; Potassium 4.1 mmol/L (3.5-5.1); Sodium 136 mmol/L (135-145); Total Bilirubin 0.5 mg/dl (0.2-1.3); Total Cholesterol 139 mg/dl (50-199); Triglyceride 85 mg/dl (10-149); Very Low Density Lipoprotein 17 mg/dl (0-30); eGFR > 60.00
[2023-05-29 05:01] LABS: NT-proBNP 3270 pg/ml; Troponin I 0.646 ng/ml
[2023-05-29] MEDS: TYLENOL PO ×6 (05:07→23:20)
--- NOTE | 2023-05-29 08:07 | W.PN.CD ---
Today's Communication / Plan
-
Check B12, Folate, Thiamine, peripheral smear, reticulocytes.
Furosemide 40 mg IV this morning.
GI evaluation after clopidogrel washout (complete as of tomorrow).
Impression / Plan
-
Impression/Plan: 67 y/o male with HTN, HLD, tobacco abuse, VON s/p right TCAR, severe CAD (including left main coronary artery) and ischemic cardiomyopathy (LVEF) admitted from the office yesterday for accelerating angina and shortness in breath,
found to be profoundly anemic.
#Anemia
-Unclear duration. Near normal in 02/2023 but progressively worse starting in April.
-Hbg 5.4 on presentation.
-S/P transfusion of 2 units of PRBC's. Hbg now 7.5.
-Transfuse to an H/H of 8/24 minimum given severity of CAD.
-GI consulted. Endoscopic bleeding evaluation on hold for complete clopidogrel washout and clinical stability.
-Patient reports last dose of clopidogrel on Thursday. 05/30/2023 will be 5 days.
-Check B12/folate/thiamine, reticulocytes, peripheral smear.
#CAD
-Chronic, severe.
-Previously asymptomatic, but now symptomatic with anemia.
-Troponin elevated but stuttering - inconsistent with ACS. This is likely due to poor O2 carrying capacity and volume overload.
-Patient will require revascularization - date TBD.
#ICMO/HFrEF
-Acute on chronic.
-Likely had some volume overload, worsened by transfusion.
-Repeat furosemide 40 mg IV this morning.
-GDMT as hemodynamics will tolerate.
#VON
-Chronic, stable.
-S/P right TCAR.
#HLD
-Chronic, stable.
-High dose, high potency statin.
Subjective/Interval History:
Patient admitted yesterday, transfused two units with symptomatic improvement.
Became short of breath after second transfusion.
CTPA started nitro gtt and give furosemide 20 mg IV with relief.
GI consulted yesterday.
DATA:
Cardiac catheterization 02/20/2023:
CONCLUSIONS
1.� Right dominant circulation with 70% lesion in the mid RCA, an eccentric, 80% lesion in the distal left main extending into the 70% ostial LAD and 80% ostial circumflex lesions, a subtotal occlusion of the proximal LAD immediately proximal to the
origin of the diagonal and a 70% lesion in the origin of the large obtuse marginal.
2.� Normal filling pressures (LVEDP = 10 mmHg at 65.3 kg).
3.� Severe systolic cardiomyopathy on echocardiography (LV ejection fraction = 30%).
Physical Exam
Vital Signs/Labs
Vital Signs
Temp Pulse Resp BP Pulse Ox
37.2 C 90 16 104/69 99
05/29/23 07:39 05/29/23 07:45 05/29/23 07:39 05/29/23 07:15 05/29/23 07:39
05/27/23 05/28/23 05/29/23
11:59 11:59 11:59
Actual Weight 67.6 kg 66.4 kg
05/29/23 03:27
05/29/23 03:27
PT 14.0 Sec (11.4-14.6) 05/28/23 11:03
INR 1.05 05/28/23 11:03
APTT 38.4 Sec (23.4-35.0) H 05/28/23 11:03
Triglycerides 85 mg/dl (10-149) 05/29/23 03:27
LDL Cholesterol, Calc 94 mg/dl 05/29/23 03:27
VLDL Cholesterol, Calc 17 mg/dl (0-30) 05/29/23 03:27
HDL Cholesterol 28 mg/dl 05/29/23 03:27
05/29/23
03:27
Rgo-J-Eeyzagmaziq Pept 3270
LAB Results
01/05/28/23 05/28/23
11:03 14:31 14:32
Troponin I 0.416 H* 0.597 H* D Cancelled
05/28/23 05/29/23
19:34 03:27
Troponin I 0.582 H* 0.646 H*
Physical Exam
Constitutional: No acute distress and Comfortable
EENT: Anicteric and Moist mucous membranes
Cardiovascular: Rhythm & rate is regular, Pedal edema is absent, Pedal edema present, S1S2 is normal and Murmur/rub/gallop absent
Respiratory: Respiratory effort normal, Lungs clear to auscul., Wheeze Absent, Crackles Absent and Rhonchi Absent
GI: Soft, Distention absent, Flat, Non tender and Normal bowel sounds
Neuro/Psych: AO x 3
Data Reviewed
-
Date of Service: May 29, 2023
Medical Decision Making: Reviewed Test Results, Independent Historian Assessment, Test Interpretation and Review of Case with other Provider
EKG: Tracing Personally Visualized and interpreted and Report Reviewed by me
Echo: Tracing Personally Visualized and interpreted and Report Reviewed by me
X-Ray/CT/US/MRI/NUC/PET: Image Personally Visualized and interpreted and Report Reviewed by me
Labs: Labs Reviewed by me and Labs Ordered by me
--- NOTE | 2023-05-29 09:29 | W.PN.HOSP.TC ---
Today's Communication/Plan
-
Tomorrow will be day 5 after Plavix hold
EGD/colonoscopy timing per GI
Agree with 1 more unit of blood transfusion with Lasix today
Currently on nitro drip
Assessment / Plan
Assessment / Plan
67-year-old male admitted with angina and shortness of breath was found to be severely anemic.
On examination not in acute distress
Cardiovascular system S1-S2 appreciated
Few rales bilateral bases
Abdomen soft and nontender
No pedal edema
# Anemia unclear reasons
Possibly subacute GI blood loss exacerbated by Plavix and aspirin
Hemoglobin was 5.4 on admission 7.5 today after 2 units
Transfuse 1 more unit today on 05/29/2023
GI consulted
Endoscopy/colonoscopy may need to be done after Plavix washout tomorrow will be day 5
Timing to be decided by GI
Iron studies indicating severe iron deficiency-IV iron
Normal B12 level and folate
# Coronary disease-
Cardiac catheterization February 2023 multivessel coronary disease EF 30%
Patient will require CABG-timing to be determined
Continue aspirin, statin, Imdur, metoprolol
Plavix on hold
# Non-ID troponin elevation secondary to severe anemia
Blood transfusion
No heparin drip
# Acute on chronic heart failure with reduced ejection fraction
Ischemic cardiomyopathy
Fluid overload worsened by blood transfusion
Extra Lasix again IV
Continue metoprolol, Farxiga
# [id number]
# Diabetes-HbA1C Not reliable
Accu-Cheks and sliding scale coverage
Also continue Farxiga
# Atherosclerosis
# History of right carotid TCAR on 04/14/[address] Triplett
# Hyperlipidemia-continue statin
# Heavy smoking history recently quit
Continue cessation counseling
# Marijuana use
# Arthritis
# DVT prophylaxis-SCDs
# Full code
Discussed with cardiology
Discussed with nursing at bedside
Cardiology to update patient's today.
Anticipated Discharge: > 48 hours
Subjective/Interval History
-
Date of Service: May 29, 2023
Objective Data
-
Labs:
Laboratory Results
05/29/23
03:27
WBC 6.5
Hgb 7.5 L D
Hct 22.9 L
Plt Count 372
Sodium 136
Potassium 4.1
Chloride 102
Carbon Dioxide 22
BUN 24 H
Creatinine 1.0
Glucose 100 H
Calcium 8.6
Total Bilirubin 0.5
AST 27
ALT 20
Alkaline Phosphatase 103
Vital Signs:
Vital Signs
Temp Pulse Resp BP Pulse Ox
99 F 90 16 104/69 99
05/29/23 07:39 05/29/23 07:45 05/29/23 07:39 05/29/23 07:15 05/29/23 07:39
I&O
05/28/23 05/29/23 05/30/23
06:59 06:59 06:59
Intake Total 950 / 950
Output Total 1500 / 1500
Balance -550 / -550
[2023-05-29] MEDS: FOLVITE 1 MG PO (09:57)
[2023-05-29] MEDS: ASPIR LOW (ENTERIC COATED) 81 MG PO (09:57)
[2023-05-29] MEDS: TOPROL XL 25 MG PO (09:57)
[2023-05-29] MEDS: VITAMIN B1 100 MG PO ×2 (09:57→22:05)
[2023-05-29] MEDS: LASIX 40 MG IV (09:57)
[2023-05-29] MEDS: FLUSH (NSS) 2 FLUSH IV ×2 (09:59→17:13)
--- NOTE | 2023-05-29 10:10 | PTCARENOTE ---
Late entry: Pt rec'd from prev nsg shift AAOx3, w/no c/o CP. Pt mildly SOB w/exertion. Pt w/nitro drip infusing as ordered. Pt's VS stable. R AC IV line checked & IV Lasix given as ordered prior to transfusing ordered 1 unit of PRBC's. Home Lending Officer,
Dr Parra notified that pt's spouse would like a call to be updated on plan of care for pt. Pt w/call retana within reach & no addtl needs at this time. Plan of care ongoing.
[2023-05-29 11:17] LABS: Band Neutrophils 0 % (0-3); Lymphocytes 18 % (20-51); Monocytes 4 % (2-9); Segmented Neutrophils 78 % (42-75)
[2023-05-29 11:18] LABS: Anisocytosis 1+; Hypochromasia 2+; Normal RBC Morphology No; Ovalocytes 1+; Platelets Checked Yes; Spherocytes 1+; Stomatocytes 1+; Target Cells 1+
[2023-05-29 11:19] LABS: Folate 18.4 ng/ml (2.76-20); Microcytosis 1+; Schistocytes 1+; Total Cells Counted 100; Vitamin B12 355 pg/ml (239-931)
[2023-05-29] MEDS: NOVOLOG FLEXPEN-LOW RESISTANCE SC ×2 (12:31→17:14)
--- NOTE | 2023-05-29 14:43 | CM ---
Chart reviewed. Patient is waiting on Endoscopy. Patient is independent of ADLS, lives with his in a 1 STH, 0 CL, 0 DME. Patient currently with no discharge needs. CM to follow
--- NOTE | 2023-05-29 14:51 | CM ---
Pricing on Eliquis through the patient's [employer] plan is $40 a month. The patient qualified for the free month and $10 co pay card. Both were placed in the patient's red discharge folder
--- NOTE | 2023-05-29 16:27 | PTCARENOTE ---
Transfused 1 unit PRBC's as ordered. Completed by 1619. VS stable w/no signs or symptoms of a transfusion reaction. Plan of care ongoing.
[2023-05-29 17:00] LABS: Glucose - Point of Care 143 mg/dl (70-99)
[2023-05-29] MEDS: FERRLECIT 110 MG IV (17:12)
--- NOTE | 2023-05-29 20:09 | W.PN.GI.CBS2 ---
Today's Communication / Plan
-
CLD tomorrow
Assessment / Plan
-
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 Pt noted to have NSTEMI in ER with elevated troponin (0.416). Labs also showed significantly decreased Hgb at 5.4. He is unaware of any prior episodes of anemia.
Reviewing his labs, he had a Hgb level of 12 in February 2023, which trended downward from 9.7 in March to 8.2 in April, and now 5.4. Patient denies any bleeding - denies black, tarry or bloody stool; no hematemesis or hematuria. He is not a
vegetarian. He is on both Plavix and aspirin. He occasionally takes NSAIDs. He stopped drinking alcohol in February 2023, prior to that was drinking a 6-pack of beer daily. He does smoke marijuana. He smokes cigarettes as well, up to 3 PPD, but
states he is now trying to quit. Last smoked 4 days ago. Pt denies chest pain or abdominal pain. He was experiencing exertional dyspnea, even with minimal exertion. He does complain of fatigue, dizziness. No nausea, vomiting, heartburn, reflux or
dysphagia. He has never had an endoscopy or colonoscopy. There is no family history of GI malignancies.
Plavix held since 05/25/2023. Will d/w cardiology re: clearance for intended endo procedures (EGD/colonoscopy) and timing of the procedure. CLD tomorrow.
Total Time Spent with Patient (in minutes): 35
Subjective
Subjective
Date of Service: May 29, 2023
No events o/n.
Objective
Data Reviewed
Laboratory Data:
Laboratory Results
05/29/23 03:27
05/29/23 03:27
Laboratory Results
PT 14.0 Sec (11.4-14.6) 05/28/23 11:03
INR 1.05 05/28/23 11:03
APTT 38.4 Sec (23.4-35.0) H 05/28/23 11:03
Total Bilirubin 0.5 mg/dl (0.2-1.3) 05/29/23 03:27
AST 27 U/L (17-59) 05/29/23 03:27
ALT 20 U/L (0-50) 05/29/23 03:27
Alkaline Phosphatase 103 U/L (38-126) 05/29/23 03:27
Vital Signs and I&O:
Vital Signs
Temp Pulse Resp BP Pulse Ox
98.9 F 79 18 90/69 98
05/29/23 16:19 05/29/23 16:17 05/29/23 16:19 05/29/23 16:17 05/29/23 16:19
I&O
05/28/23 05/29/23 05/30/23
06:59 06:59 06:59
Intake Total 950 / 950 970 / 970
Output Total 1500 / 1500 1700 / 1700
Balance -550 / -550 -730 / -730
[2023-05-29 22:05] LABS: Glucose - Point of Care 133 mg/dl (70-99)
[2023-05-29] MEDS: LIPITOR 80 MG PO (22:05)
[2023-05-29 22:38] LABS: Magnesium 2.3 mg/dl (1.6-2.3)
[2023-05-29] MEDS: CALCIUM GLUCONATE 130 MG IV (23:43)
[2023-05-30] VITALS (12 sets, daily range): BP systolic 88–112; BP diastolic 56–84; PULSE 87–96; O2SAT 96
--- NOTE | 2023-05-30 00:26 | PTCARENOTE ---
assumed care of patient at the change of shift. AAOx3. denies any pain. patient states feeling much better. family visiting at the bedside.
discussed plan of care with Noe PALOMARES. nitro gtt restarted at approx 2130 per PA at 5 mcg/min. increased ectopy noted on tele as well. SR with PVCs. patient denies any palpitations. labs sent. calcium gluconate IV ordered and given, see mar.
assisted patient to the BR. oob independently; steady on his feet. denies any lightheadedness/dizziness. partial bath per patient. linens/gown changed. no shortness of breath noted. patient denies any cp/sob.
[2023-05-30] MEDS: TYLENOL PO ×6 (05:05→23:13)
[2023-05-30 05:11] LABS: % Basophils 0.9 % (0-2); % Eosinophils 1.9 % (0-6); % Immature Granulocytes 0.4 % (0-0.5); % Lymphocytes 18.9 % (20.5-51.1); % Monocytes 7.7 % (1.7-9.3); % Neutrophils 70.2 % (42.2-75.2); Absolute Basophils 0.1 10^3/uL (0-0.2); Absolute Eosinophils 0.2 10^3/uL (0-0.7); Absolute Lymphocytes 1.5 10^3/uL (1.2-3.4); Absolute Monocytes 0.6 10^3/uL (0.1-0.6); Absolute Neutrophils 5.6 10^3/uL (1.4-6.5); Hematocrit 27.1 % (39.0-52.0); Mean Corp Hgb Conc. 33.2 g/dL (33.0-37.0); Mean Corpuscular Hgb 26.9 pg (27.0-31.0); Mean Corpuscular Volume 80.9 fL (80.0-94.0); Nucleated Red Blood Cells % 0.3 % (-); Platelet Count 368 10^3/uL (130-400); Red Blood Cell Count 3.35 10^6/uL (4.70-6.10); Red Cell Dist. Width 15.9 % (11.5-14.5); White Blood Cell Count 7.9 10^3/uL (4.8-10.8)
[2023-05-30 05:42] LABS: ALT (SGPT) 19 U/L (0-50); AST (SGOT) 26 U/L (17-59); Albumin 3.4 g/dl (3.5-5.0); Alkaline Phosphatase 108 U/L (38-126); Blood Urea Nitrogen 20 mg/dl (9-20); Calcium 9.4 mg/dl (8.4-10.2); Carbon Dioxide 24 mmol/L (22-30); Chloride 99 mmol/L (98-107); Estimated Creatinine Clearance 83 ml/min; Glucose 103 mg/dl (70-99); Magnesium 2.2 mg/dl (1.6-2.3); Potassium 3.8 mmol/L (3.5-5.1); Sodium 134 mmol/L (135-145); Total Bilirubin 2.2 mg/dl (0.2-1.3); Total Protein 5.9 g/dl (6.3-8.2); eGFR > 60.00
[2023-05-30] MEDS: NOVOLOG FLEXPEN-LOW RESISTANCE SC ×2 (07:38→18:16)
--- NOTE | 2023-05-30 08:00 | PTCARENOTE ---
resumed care of patient from prev RN. AAOx3. denies any pain. no SOB. NSR with PVCs. nitro gtt infusing at ordered rate. on RA. independent in care.
PIV x2 flushed and patent. clear yellow urine in urinal. tolerating diet. pulses palpable. trace edema. plan for colonoscopy prep tomorrow night and then procedure on thursday. patient in agreement. will continue to monitor.
--- NOTE | 2023-05-30 08:03 | W.PN.UPDATE ---
Update Note
Progress Note Update
Patient seen and examined this AM. VSS. S/p 1 UPRBCS yesterday and Hgb 9.0 this AM. Per nursing reports patient has not had a BM since 05/28. Continue anemia work up per primary team. No further episodes of CP while on NTG gtt.
[2023-05-30 08:13] LABS: Glucose - Point of Care 100 mg/dl (70-99)
[2023-05-30] MEDS: KCL 20 MEQ PO ×2 (08:23→10:36)
[2023-05-30] MEDS: FOLVITE 1 MG PO (08:23)
[2023-05-30] MEDS: ASPIR LOW (ENTERIC COATED) 81 MG PO (08:23)
[2023-05-30] MEDS: VITAMIN B1 100 MG PO ×2 (08:23→19:27)
[2023-05-30] MEDS: TOPROL XL 25 MG PO (08:24)
[2023-05-30] MEDS: FARXIGA 10 MG PO (08:27)
--- NOTE | 2023-05-30 08:46 | W.PN.HOSP.TC ---
Today's Communication/Plan
-
EGD and colonoscopy Thursday
Assessment / Plan
Assessment / Plan
67-year-old male admitted with angina and shortness of breath was found to be severely anemic.
On examination not in acute distress
Cardiovascular system S1-S2 appreciated
Few rales bilateral bases
Abdomen soft and nontender
No pedal edema
# Anemia unclear reasons
Possibly subacute GI blood loss exacerbated by Plavix and aspirin
Hemoglobin was 5.4 on admission 9 today after 3 units
GI following
Endoscopy/colonoscopy may need to be done after Plavix washout 05/30/22 - day 5
EGD/colonoscopy planned for 06/01/2023
Iron studies indicating severe iron deficiency-IV iron
Normal B12 level and folate
# Coronary disease-
Cardiac catheterization February 2023 multivessel coronary disease EF 30%
Patient will require CABG-timing to be determined by CT surgery
Continue aspirin, statin, Imdur, metoprolol
Plavix on hold
# Non-CT troponin elevation secondary to severe anemia
No heparin drip
# Acute on chronic heart failure with reduced ejection fraction
Ischemic cardiomyopathy
Continue metoprolol, Farxiga
Lasix 20 mg IV now
# Oraiqmgleyfz-liic-qwavsaq
# Diabetes-HbA1C Not reliable
Accu-Cheks and sliding scale coverage
Also continue Farxiga
# Atherosclerosis
# History of right carotid TCAR on 04/14/[address] Triplett
# Hyperlipidemia-continue statin
# Heavy smoking history recently quit
Continue cessation counseling
# Marijuana use
# Arthritis
# DVT prophylaxis-SCDs
# Full code
Discussed with GI
Discussed with nursing at bedside
Anticipated Discharge: > 48 hours
Subjective/Interval History
-
Date of Service: May 30, 2023
Objective Data
-
Labs:
Laboratory Results
05/29/23 05/30/23
22:01 04:15
WBC 7.9
Hgb 9.0 L
Hct 27.1 L
Plt Count 368
Sodium 134 L
Potassium 4.0 3.8
Chloride 99
Carbon Dioxide 24
BUN 20
Creatinine 0.8
Glucose 103 H
Calcium 9.4
Total Bilirubin 2.2 H D
AST 26
ALT 19
Alkaline Phosphatase 108
Vital Signs:
Vital Signs
Temp Pulse Resp BP Pulse Ox
98.5 F 81 16 99/72 93
05/30/23 08:06 05/30/23 08:24 05/30/23 08:06 05/30/23 08:24 05/30/23 08:06
I&O
05/29/23 05/30/23 05/31/23
06:59 06:59 06:59
Intake Total 950 / 950 1350 / 1350
Output Total 1500 / 1500 2925 / 2925 300 / 300
Balance -550 / -550 -1575 / -1575 -300 / -300
[2023-05-30] MEDS: LASIX 20 MG IV (10:36)
--- NOTE | 2023-05-30 11:11 | W.PN.GI.CBS2 ---
Today's Communication / Plan
-
EGD/colonoscopy Thursday
Assessment / Plan
-
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 Pt noted to have NSTEMI in ER with elevated troponin (0.416). Labs also showed significantly decreased Hgb at 5.4. He is unaware of any prior episodes of anemia.
Reviewing his labs, he had a Hgb level of 12 in February 2023, which trended downward from 9.7 in March to 8.2 in April, and now 5.4. Patient denies any bleeding - denies black, tarry or bloody stool; no hematemesis or hematuria. He is not a
vegetarian. He is on both Plavix and aspirin. He occasionally takes NSAIDs. He stopped drinking alcohol in February 2023, prior to that was drinking a 6-pack of beer daily. He does smoke marijuana. He smokes cigarettes as well, up to 3 PPD, but
states he is now trying to quit. Last smoked 4 days ago. Pt denies chest pain or abdominal pain. He was experiencing exertional dyspnea, even with minimal exertion. He does complain of fatigue, dizziness. No nausea, vomiting, heartburn, reflux or
dysphagia. He has never had an endoscopy or colonoscopy. There is no family history of GI malignancies.
D/w cardiology, will plan for EGD/colonoscopy Thursday. CLD tomorrow, bowel prep tomorrow for procedure Thursday.
Total Time Spent with Patient (in minutes): 35
Subjective
Subjective
Date of Service: May 30, 2023
No events o/n.
Objective
Data Reviewed
Laboratory Data:
Laboratory Results
05/30/23 04:15
05/30/23 04:15
Laboratory Results
PT 14.0 Sec (11.4-14.6) 05/28/23 11:03
INR 1.05 05/28/23 11:03
APTT 38.4 Sec (23.4-35.0) H 05/28/23 11:03
Magnesium 2.2 mg/dl (1.6-2.3) 05/30/23 04:15
Total Bilirubin 2.2 mg/dl (0.2-1.3) H D 05/30/23 04:15
AST 26 U/L (17-59) 05/30/23 04:15
ALT 19 U/L (0-50) 05/30/23 04:15
Alkaline Phosphatase 108 U/L (38-126) 05/30/23 04:15
Vital Signs and I&O:
Vital Signs
Temp Pulse Resp BP Pulse Ox
98.5 F 81 16 99/72 93
05/30/23 08:06 05/30/23 08:24 05/30/23 08:06 05/30/23 08:24 05/30/23 08:06
I&O
05/29/23 05/30/23 05/31/23
06:59 06:59 06:59
Intake Total 950 / 950 1350 / 1350
Output Total 1500 / 1500 2925 / 2925 300 / 300
Balance -550 / -550 -1575 / -1575 -300 / -300
--- NOTE | 2023-05-30 11:36 | W.PN.CD ---
Addendum entered and electronically signed by Patrice Dasilva MD 05/30/23 11:59:
I saw and examined the patient.
The HEEL SPRAYER's note was reviewed and I agree with the note.
Comment: Now with Hgb repleted via transfusion, we will try to dc IV nitro and monitor
He will be high risk for EGD/Colon due to severe CAD and recent + Trop, but he is medically stable at this time and procedure is not elective
Original Note:
Today's Communication / Plan
-
await GI EGD/colonoscopy for Thursday
con't meds as tolerated
monitor H & H
Impression / Plan
-
Impression/Plan: 67 y/o male with HTN, HLD, tobacco abuse, VON s/p right TCAR, severe CAD (including left main coronary artery) and ischemic cardiomyopathy (LVEF) admitted from the office yesterday for accelerating angina and shortness in breath,
found to be profoundly anemic.
#Anemia
-Unclear duration. Near normal in 02/2023 but progressively worse starting in April.
-Hbg 5.4 on presentation.
-S/P transfusion of 3 units of PRBC's.
-Transfuse to an H/H of 8 minimum given severity of CAD.
-GI consulted. EGD/colonoscopy planned for Thursday06/01/23
-Patient reports last dose of clopidogrel on Thursday. 05/30/2023 will be 5 days.
#CAD
-Chronic, severe.
-Previously asymptomatic, but now symptomatic with anemia.- improved with PRBC
-Troponin elevated but stuttering - inconsistent with ACS. This is likely due to poor O2 carrying capacity and volume overload.
-Patient will require revascularization - date TBD.
#ICMO/HFrEF
-Acute on chronic this admit
-Likely had some volume overload, worsened by transfusion.
-lasix given this admit-mild interstitial edema. add daily weight
-GDMT as hemodynamics will tolerate.
#VON
-Chronic, stable.
-S/P right TCAR.
#HLD
-Chronic, stable.
-High dose, high potency statin.
Subjective:
Pt feels breathing is much better. Ambulated halls today without MARTINEZ. Denies recurrent CP.
DATA:
Cardiac catheterization 02/20/2023:
CONCLUSIONS
1.� Right dominant circulation with 70% lesion in the mid RCA, an eccentric, 80% lesion in the distal left main extending into the 70% ostial LAD and 80% ostial circumflex lesions, a subtotal occlusion of the proximal LAD immediately proximal to the
origin of the diagonal and a 70% lesion in the origin of the large obtuse marginal.
2.� Normal filling pressures (LVEDP = 10 mmHg at 65.3 kg).
3.� Severe systolic cardiomyopathy on echocardiography (LV ejection fraction = 30%).
Physical Exam
Vital Signs/Labs
Vital Signs
Temp Pulse Resp BP Pulse Ox
98.5 F 81 16 99/72 93
05/30/23 08:06 05/30/23 08:24 05/30/23 08:06 05/30/23 08:24 05/30/23 08:06
05/29/23 05/30/23 05/31/23
06:59 06:59 06:59
Actual Weight 65.5 kg
05/30/23 04:15
05/30/23 04:15
PT 14.0 Sec (11.4-14.6) 05/28/23 11:03
INR 1.05 05/28/23 11:03
APTT 38.4 Sec (23.4-35.0) H 05/28/23 11:03
Magnesium 2.2 mg/dl (1.6-2.3) 05/30/23 04:15
Triglycerides 85 mg/dl (10-149) 05/29/23 03:27
LDL Cholesterol, Calc 94 mg/dl 05/29/23 03:27
VLDL Cholesterol, Calc 17 mg/dl (0-30) 05/29/23 03:27
HDL Cholesterol 28 mg/dl 05/29/23 03:27
05/29/23
03:27
Ihy-I-Amwnyphfaqq Pept 3270
LAB Results
05/28/23 05/28/23 05/28/23
11:03 14:31 14:32
Troponin I 0.416 H* 0.597 H* D Cancelled
05/28/23 05/29/23
19:34 03:27
Troponin I 0.582 H* 0.646 H*
Physical Exam
Constitutional: No acute distress
Cardiovascular: Rhythm & rate is regular and Pedal edema is absent
Respiratory: Respiratory effort normal and Lungs clear to auscul.
Neuro/Psych: AO x 3
Data Reviewed
-
Date of Service: May 30, 2023
Medical Tests (PFT, Pathology etc): Other (tele: SR, PVC's 80's )
Labs: Labs Reviewed by me
[2023-05-30 12:20] LABS: Glucose - Point of Care 170 mg/dl (70-99)
[2023-05-30] MEDS: FERRLECIT 110 MG IV (13:13)
[2023-05-30] MEDS: NOVOLOG FLEXPEN-LOW RESISTANCE 1 UNITS SC (14:16)
--- NOTE | 2023-05-30 20:25 | PTCARENOTE ---
Pt received at start of shift, HR SR w/ Bigeminy PVCs 80s-100s. Pt OOB in chair. Discussed plan with pt to start liquid diet tomorrow AM. Pt understands, pt states they have no questions about colonoscopy procedure. Informed pt to notify RN if need
to have BM, educated pt on heme testing stool. Pt denies any pain, SOB, lightheadedness/dizziness at this time. Informed to notify RN if any changes, call retana within reach.
[2023-05-30] MEDS: LIPITOR 80 MG PO (21:58)
[2023-05-30 22:06] LABS: Glucose - Point of Care 131 mg/dl (70-99)
[2023-05-31] VITALS (7 sets, daily range): BP systolic 91–128; BP diastolic 57–83; BMI 23.2
[2023-05-31 04:43] LABS: % Eosinophils 2.6 % (0-6); % Immature Granulocytes 0.4 % (0-0.5); % Lymphocytes 21.6 % (20.5-51.1); % Monocytes 8.7 % (1.7-9.3); % Neutrophils 65.7 % (42.2-75.2); Absolute Basophils 0.1 10^3/uL (0-0.2); Absolute Eosinophils 0.2 10^3/uL (0-0.7); Absolute Lymphocytes 1.7 10^3/uL (1.2-3.4); Absolute Monocytes 0.7 10^3/uL (0.1-0.6); Absolute Neutrophils 5.1 10^3/uL (1.4-6.5); Hematocrit 28.2 % (39.0-52.0); Hemoglobin 9.4 g/dL (13.0-18.0); Mean Corp Hgb Conc. 33.3 g/dL (33.0-37.0); Mean Corpuscular Hgb 26.9 pg (27.0-31.0); Mean Corpuscular Volume 80.6 fL (80.0-94.0); Nucleated Red Blood Cells % 0 % (-); Platelet Count 376 10^3/uL (130-400); Red Cell Dist. Width 16.4 % (11.5-14.5); White Blood Cell Count 7.7 10^3/uL (4.8-10.8)
[2023-05-31] MEDS: TYLENOL PO ×6 (04:46→21:19)
[2023-05-31 05:09] LABS: ALT (SGPT) 18 U/L (0-50); AST (SGOT) 21 U/L (17-59); Albumin 3.4 g/dl (3.5-5.0); Alkaline Phosphatase 105 U/L (38-126); Blood Urea Nitrogen 18 mg/dl (9-20); Calcium 9.1 mg/dl (8.4-10.2); Carbon Dioxide 25 mmol/L (22-30); Chloride 101 mmol/L (98-107); Estimated Creatinine Clearance 83 ml/min; Glucose 102 mg/dl (70-99); Potassium 4.2 mmol/L (3.5-5.1); Sodium 136 mmol/L (135-145); Total Bilirubin 0.5 mg/dl (0.2-1.3); eGFR > 60.00
[2023-05-31 07:24] LABS: Glucose - Point of Care 103 mg/dl (70-99)
[2023-05-31] MEDS: NOVOLOG FLEXPEN-LOW RESISTANCE SC ×3 (07:28→16:58)
[2023-05-31] MEDS: VITAMIN B1 100 MG PO ×2 (08:13→20:09)
[2023-05-31] MEDS: FOLVITE 1 MG PO (08:13)
[2023-05-31] MEDS: ASPIR LOW (ENTERIC COATED) 81 MG PO (08:13)
[2023-05-31] MEDS: FARXIGA 10 MG PO (08:14)
[2023-05-31] MEDS: TOPROL XL 25 MG PO (08:14)
--- NOTE | 2023-05-31 10:21 | W.PN.CD ---
Today's Communication / Plan
-
-
await EGD/colonoscope tomorrow
Impression / Plan
-
Impression/Plan: 67 y/o male with HTN, HLD, tobacco abuse, VON s/p right TCAR, severe CAD (including left main coronary artery) and ischemic cardiomyopathy (LVEF) admitted from the office yesterday for accelerating angina and shortness in breath,
found to be profoundly anemic.
#Anemia
-Unclear duration. Near normal in 02/2023 but progressively worse starting in April.
-Hbg 5.4 on presentation.
-S/P transfusion of 3 units of PRBC's. - now Hgb stable at >9
-GI consulted. EGD/colonoscopy planned for Thursday06/01/23 - he is cleared to proceed from CV POV
-Patient reports last dose of clopidogrel on Thursday. 05/30/2023 will be 5 days.
#CAD
-Chronic, severe.
-Previously asymptomatic, but now symptomatic with anemia.- improved with PRBC, no longer symptomatic w Hg 9.4
-Troponin elevated but stuttering - inconsistent with ACS. This is likely due to poor O2 carrying capacity and volume overload.
-Patient will require revascularization - date TBD.
#ICMO/HFrEF
-Acute on chronic this admit, improved
-Likely had some volume overload, worsened by transfusion.
-lasix given this admit-mild interstitial edema. add daily weight
-GDMT as hemodynamics will tolerate.
#VON
-Chronic, stable.
-S/P right TCAR.
#HLD
-Chronic, stable.
-High dose, high potency statin.
Subjective:
Pt feels breathing is much better. Ambulated halls today without MARTINEZ. Denies recurrent CP.
DATA:
Cardiac catheterization 02/20/2023:
CONCLUSIONS
1.� Right dominant circulation with 70% lesion in the mid RCA, an eccentric, 80% lesion in the distal left main extending into the 70% ostial LAD and 80% ostial circumflex lesions, a subtotal occlusion of the proximal LAD immediately proximal to the
origin of the diagonal and a 70% lesion in the origin of the large obtuse marginal.
2.� Normal filling pressures (LVEDP = 10 mmHg at 65.3 kg).
3.� Severe systolic cardiomyopathy on echocardiography (LV ejection fraction = 30%).
Physical Exam
Vital Signs/Labs
Vital Signs
Temp Pulse Resp BP Pulse Ox
98.7 F 84 18 107/66 93
05/31/23 07:21 05/31/23 08:14 05/31/23 07:21 05/31/23 08:14 05/31/23 07:21
05/30/23 05/31/23 06/01/23
06:59 06:59 06:59
Actual Weight 143 lb 15.39 oz
05/31/23 04:14
05/31/23 04:14
PT 14.0 Sec (11.4-14.6) 05/28/23 11:03
INR 1.05 05/28/23 11:03
APTT 38.4 Sec (23.4-35.0) H 05/28/23 11:03
Magnesium 2.2 mg/dl (1.6-2.3) 05/30/23 04:15
Triglycerides 85 mg/dl (10-149) 05/29/23 03:27
LDL Cholesterol, Calc 94 mg/dl 05/29/23 03:27
VLDL Cholesterol, Calc 17 mg/dl (0-30) 05/29/23 03:27
HDL Cholesterol 28 mg/dl 05/29/23 03:27
05/29/23
03:27
Jbt-C-Ypinbliluqx Pept 3270
LAB Results
05/28/23 05/28/23 05/28/23
11:03 14:31 14:32
Troponin I 0.416 H* 0.597 H* D Cancelled
05/28/23 05/29/23
19:34 03:27
Troponin I 0.582 H* 0.646 H*
Physical Exam
Cardiovascular: Rhythm & rate is regular and Pedal edema is absent
Respiratory: Respiratory effort normal and Lungs clear to auscul.
Data Reviewed
-
Date of Service: May 31, 2023
EKG: Tracing Personally Visualized and interpreted
Labs: Labs Reviewed by me
--- NOTE | 2023-05-31 10:32 | W.PN.HOSP.TC ---
Today's Communication/Plan
-
EGD/Colon tomorrow
Assessment / Plan
Assessment / Plan
67-year-old male admitted with angina and shortness of breath was found to be severely anemic.
On examination not in acute distress
Cardiovascular system S1-S2 appreciated
chest CTA
Abdomen soft and nontender
No pedal edema
# Anemia unclear reasons
Possibly subacute GI blood loss exacerbated by Plavix and aspirin
Hemoglobin was 5.4 on admission 9 today after 3 units
GI following
EGD/colonoscopy planned for 06/01/2023
Iron studies indicating severe iron deficiency-IV iron
Low normal B12 -replace
# Coronary disease-
Cardiac catheterization February 2023 multivessel coronary disease EF 30%
Patient will require CABG-timing to be determined by CT surgery
Continue aspirin, statin, Imdur, metoprolol
Plavix on hold
# Non-IA troponin elevation secondary to severe anemia
No heparin drip
# Acute on chronic heart failure with reduced ejection fraction
Ischemic cardiomyopathy
Continue metoprolol, Farxiga
Hold Lasix today
# Jrlaymsyajdp-aszz-urkdlqe
# Diabetes-HbA1C Not reliable
Accu-Cheks and sliding scale coverage
Also continue Farxiga
# Atherosclerosis
# History of right carotid TCAR on 04/14/[address] Triplett
# Hyperlipidemia-continue statin
# Heavy smoking history recently quit
Continue cessation counseling
# Marijuana use
# 20 lb weight loss in 6 [address] - [address] C/A/P Thursday
# Multilevel DJD/Arthritis
# DVT prophylaxis-SCDs
# Full code
Discussed with nursing at bedside
Discussed with patient's who had a lot of questions all were answered to the best of my knowledge.
She stated patient had 20 pound weight loss in the past 6 months.
After colonoscopy to state we will proceed with a CAT scan of the chest abdomen and pelvis.
Anticipated Discharge: > 48 hours
Subjective/Interval History
-
Date of Service: May 31, 2023
Objective Data
-
Labs:
Laboratory Results
05/31/23
04:14
WBC 7.7
Hgb 9.4 L
Hct 28.2 L
Plt Count 376
Sodium 136
Potassium 4.2
Chloride 101
Carbon Dioxide 25
BUN 18
Creatinine 0.8
Glucose 102 H
Calcium 9.1
Total Bilirubin 0.5 D
AST 21
ALT 18
Alkaline Phosphatase 105
Vital Signs:
Vital Signs
Temp Pulse Resp BP Pulse Ox
98.7 F 84 18 107/66 93
05/31/23 07:21 05/31/23 08:14 05/31/23 07:21 05/31/23 08:14 05/31/23 07:21
I&O
05/30/23 05/31/23 06/01/23
06:59 06:59 06:59
Intake Total 1350 / 1350
Output Total 2925 / 2925 300 / 300
Balance -1575 / -1575 -300 / -300
[2023-05-31 11:37] LABS: Glucose - Point of Care 130 mg/dl (70-99)
[2023-05-31] MEDS: VITAMIN B-12 1000 MCG PO (11:53)
[2023-05-31] MEDS: FERRLECIT 110 MG IV (13:45)
[2023-05-31 16:09] LABS: Glucose - Point of Care 94 mg/dl (70-99)
[2023-05-31] MEDS: NULYTELY SOLUTION 2 LITERS PO (17:14)
--- NOTE | 2023-05-31 17:22 | PTCARENOTE ---
Pt AOx3, denies pain. VSS. NSR w/ PVCs. BP wnl. LSCTA 98% on RA. No complaints. Walked in halls throughout the day. No BM, tolerated Clear liquid diet. Voiding w/o difficulty. Pt took a shower. Began Nulytely Prep at this time.
[2023-05-31] MEDS: LIPITOR 80 MG PO (23:21)
[2023-06-01] VITALS (7 sets, daily range): BP systolic 97–123; BP diastolic 56–92; BMI 23.1
[2023-06-01 00:10] LABS: Glucose - Point of Care 127 mg/dl (70-99)
[2023-06-01] MEDS: NULYTELY SOLUTION 2 LITERS PO (00:16)
[2023-06-01] MEDS: TYLENOL PO ×6 (00:16→20:18)
--- NOTE | 2023-06-01 02:43 | PTCARENOTE ---
Pt received at start of shift, HR SR w/ occasional PVCs 70s-90s. Pt OOB in bathroom for first 45 minutes of shift, states they can't hold in their BM if they get off the toilet at this time. Pt denies any chest pain, SOB, or
lightheadedness/dizziness. Informed to notify RN if any changes.
Pt states they don't know if they can go through with second round of bowel prep (for colonoscopy 06/01). Pt educated on benefits of procedure. Pt agreed to go ahead with second round of bowel prep, completed Nulytely solution as ordered.
[2023-06-01 04:44] LABS: % Basophils 0.9 % (0-2); % Immature Granulocytes 0.4 % (0-0.5); % Lymphocytes 16.7 % (20.5-51.1); % Monocytes 9.2 % (1.7-9.3); % Neutrophils 70.8 % (42.2-75.2); Absolute Basophils 0.1 10^3/uL (0-0.2); Absolute Eosinophils 0.2 10^3/uL (0-0.7); Absolute Lymphocytes 1.4 10^3/uL (1.2-3.4); Absolute Monocytes 0.8 10^3/uL (0.1-0.6); Absolute Neutrophils 5.8 10^3/uL (1.4-6.5); Hematocrit 28.7 % (39.0-52.0); Hemoglobin 9.2 g/dL (13.0-18.0); Mean Corp Hgb Conc. 32.1 g/dL (33.0-37.0); Mean Corpuscular Hgb 26.7 pg (27.0-31.0); Mean Corpuscular Volume 83.4 fL (80.0-94.0); Mean Platelet Volume 9.3 fL (7.4-10.4); Nucleated Red Blood Cells % 0 % (-); Platelet Count 376 10^3/uL (130-400); Red Blood Cell Count 3.44 10^6/uL (4.70-6.10); Red Cell Dist. Width 16.4 % (11.5-14.5); White Blood Cell Count 8.2 10^3/uL (4.8-10.8)
[2023-06-01 05:07] LABS: ALT (SGPT) 17 U/L (0-50); AST (SGOT) 21 U/L (17-59); Albumin 3.3 g/dl (3.5-5.0); Alkaline Phosphatase 113 U/L (38-126); Blood Urea Nitrogen 13 mg/dl (9-20); Carbon Dioxide 27 mmol/L (22-30); Chloride 100 mmol/L (98-107); Estimated Creatinine Clearance 111 ml/min; Glucose 92 mg/dl (70-99); Potassium 3.9 mmol/L (3.5-5.1); Sodium 136 mmol/L (135-145); Total Bilirubin 0.6 mg/dl (0.2-1.3); Total Protein 5.9 g/dl (6.3-8.2); eGFR > 60.00
[2023-06-01 07:50] LABS: Glucose - Point of Care 103 mg/dl (70-99)
[2023-06-01] MEDS: NOVOLOG FLEXPEN-LOW RESISTANCE SC ×3 (07:58→17:20)
--- NOTE | 2023-06-01 08:52 | W.PN.CD ---
Today's Communication / Plan
-
EGD/Colon to workup Fe deficiency anemia.
Revascularization TBD.
GDMT.
Impression / Plan
-
Impression/Plan: 67 y/o male with HTN, HLD, tobacco abuse, VON s/p right TCAR, severe CAD (including left main coronary artery) and ischemic cardiomyopathy (LVEF) admitted from the office for accelerating angina and shortness in breath, found to be
profoundly anemic.
#Anemia
-Unclear duration. Near normal in 02/2023 but progressively worse starting in April.
-Hbg 5.4 on presentation.
-S/P transfusion of 3 units of PRBC's. - now Hgb stable at >9.
-GI consulted. EGD/colonoscopy planned for Thursday06/01/2023.
-Patient reports last dose of clopidogrel on 05/25/2023.
#CAD
-Chronic, severe.
-Previously asymptomatic, but now symptomatic with anemia.
-Improved with PRBC, no longer symptomatic w Hg 9.4.
-Troponin elevated but stuttering - inconsistent with ACS. This is likely due to poor O2 carrying capacity and volume overload.
-Patient will require revascularization - date TBD.
#ICMO/HFrEF
-Acute on chronic this admit, improved.
-Likely had some volume overload, worsened by transfusion.
-lasix given this admit-mild interstitial edema. add daily weight.
-GDMT as hemodynamics will tolerate.
#VON
-Chronic, stable.
-S/P right TCAR.
#HLD
-Chronic, stable.
-High dose, high potency statin.
Subjective:
Bowel prep overnight. He reports a sudden, large amount of old blood after one of his bowel movements.
He feels washed out from the prep.
H/H stable.
DATA:
Cardiac catheterization 02/20/2023:
CONCLUSIONS
1.� Right dominant circulation with 70% lesion in the mid RCA, an eccentric, 80% lesion in the distal left main extending into the 70% ostial LAD and 80% ostial circumflex lesions, a subtotal occlusion of the proximal LAD immediately proximal to the
origin of the diagonal and a 70% lesion in the origin of the large obtuse marginal.
2.� Normal filling pressures (LVEDP = 10 mmHg at 65.3 kg).
3.� Severe systolic cardiomyopathy on echocardiography (LV ejection fraction = 30%).
Physical Exam
Vital Signs/Labs
Vital Signs
Temp Pulse Resp BP Pulse Ox
37.2 C 74 20 97/56 96
06/01/23 07:44 06/01/23 07:47 06/01/23 07:44 06/01/23 07:47 06/01/23 07:44
05/30/23 05/31/23 06/01/23
11:59 11:59 11:59
Actual Weight 65.3 kg
06/01/23 03:53
06/01/23 03:53
PT 14.0 Sec (11.4-14.6) 05/28/23 11:03
INR 1.05 05/28/23 11:03
APTT 38.4 Sec (23.4-35.0) H 05/28/23 11:03
Magnesium 2.2 mg/dl (1.6-2.3) 05/30/23 04:15
Triglycerides 85 mg/dl (10-149) 05/29/23 03:27
LDL Cholesterol, Calc 94 mg/dl 05/29/23 03:27
VLDL Cholesterol, Calc 17 mg/dl (0-30) 05/29/23 03:27
HDL Cholesterol 28 mg/dl 05/29/23 03:27
05/29/23
03:27
Xhv-V-Ogqjekqdddq Pept 3270
Physical Exam
Constitutional: No acute distress and Comfortable
EENT: Anicteric and Moist mucous membranes
Cardiovascular: Rhythm & rate is regular, Pedal edema is absent, JVD pressure is normal, S1S2 is normal and Murmur/rub/gallop absent
Respiratory: Respiratory effort normal, Lungs clear to auscul., Wheeze Absent, Crackles Absent and Rhonchi Absent
GI: Soft, Distention absent, Flat, Non tender, Normal bowel sounds and Distention present
Neuro/Psych: AO x 3
Data Reviewed
-
Date of Service: June 01, 2023
Medical Decision Making: Reviewed Test Results, Independent Historian Assessment, Test Interpretation and Review of Case with other Provider
EKG: Tracing Personally Visualized and interpreted and Report Reviewed by me
X-Ray/CT/US/MRI/NUC/PET: Image Personally Visualized and interpreted and Report Reviewed by me
Medical Tests (PFT, Pathology etc): Image Personally Visualized and interpreted and Report Reviewed by me
Labs: Labs Reviewed by me
--- NOTE | 2023-06-01 09:46 | PTCARENOTE ---
Assumed care of pt from night RN. Pt received awake and alert, Ox3. VSS, CM shows NSR 70's, POX 96% on RA. Pt remains NPO for Colonoscopy, states his stool is clear yellow. HGB this am is 9.2. He offers no c/o pain or discomfort, will continue
to monitor closely.
--- NOTE | 2023-06-01 11:20 | PTCARENOTE ---
Pt to GI lab for upper and lower endoscopy, report given to TIFFANY FALCON.
--- NOTE | 2023-06-01 11:29 | W.PN.HOSP.TC ---
Today's Communication/Plan
-
Endoscopy and colonoscopy today
Timing for CABG per CT surgery
Assessment / Plan
Assessment / Plan
67-year-old male admitted with angina and shortness of breath was found to be severely anemic.
On examination not in acute distress
Cardiovascular system S1-S2 appreciated
chest CTA
Abdomen soft and nontender
No pedal edema
was ambulating
Seen earlier. Late documentation
Preparing for colonoscopy states that he has some bloody bowel movements with the prep
# Anemia unclear reasons
Possibly subacute GI blood loss exacerbated by Plavix and aspirin
Hemoglobin was 5.4 on admission 9.2 today after 3 units
GI following
EGD/colonoscopy planned for 06/01/2023
Iron studies indicating severe iron deficiency-IV iron
Low normal B12 -replace
# Coronary disease-
Cardiac catheterization February 2023 multivessel coronary disease EF 30%
Patient will require CABG-timing to be determined by CT surgery
Continue aspirin, statin, Imdur, metoprolol
Plavix on hold
# Non-AL troponin elevation secondary to severe anemia
No heparin drip
# Acute on chronic heart failure with reduced ejection fraction
Ischemic cardiomyopathy
Continue metoprolol, Farxiga
Hold Lasix today
# [id number]
# Diabetes-HbA1C Not reliable
Accu-Cheks and sliding scale coverage
Also continue Farxiga
# Atherosclerosis
# History of right carotid TCAR on 04/14/[address] Triplett
# Hyperlipidemia-continue statin
# Heavy smoking history recently quit
Continue cessation counseling
# Marijuana use
# 20 lb weight loss in 6 [address] - [address] C/A/P Thursday
# Multilevel DJD/Arthritis
# DVT prophylaxis-SCDs
# Full code
Discussed with nursing
05/31/23-Discussed with patient's who had a lot of questions all were answered to the best of my knowledge.
She stated patient had 20 pound weight loss in the past 6 months.
After colonoscopy to state we will proceed with a CAT scan of the chest abdomen and pelvis.
Anticipated Discharge: > 48 hours
Subjective/Interval History
-
Date of Service: June 01, 2023
Objective Data
-
Labs:
Laboratory Results
06/01/23
03:53
WBC 8.2
Hgb 9.2 L
Hct 28.7 L
Plt Count 376
Sodium 136
Potassium 3.9
Chloride 100
Carbon Dioxide 27
BUN 13
Creatinine 0.6 L
Glucose 92
Calcium 9.0
Total Bilirubin 0.6
AST 21
ALT 17
Alkaline Phosphatase 113
Vital Signs:
Vital Signs
Temp Pulse Resp BP Pulse Ox
98.9 F 74 20 97/56 96
06/01/23 07:44 06/01/23 07:47 06/01/23 07:44 06/01/23 07:47 06/01/23 09:37
I&O
05/31/23 06/01/23 06/02/23
06:59 06:59 06:59
Intake Total 480 / 480
Output Total 300 / 300
Balance -300 / -300 480 / 480
--- NOTE | 2023-06-01 13:40 | PTCARENOTE ---
Assumed care of pt upon tsf from GI lab post upper and lower endoscopy. Pt arrives awake and alert, Ox3. Diet changed to 2 gm Na as ordered.
--- NOTE | 2023-06-01 13:43 | CM ---
Chart reviewed. Patient is independent of ADLS, lives with his in a 1 STH, 0 CL, 0 DME. Patient currently with no discharge needs. Plan is for the patient to return home. CM to follow
[2023-06-01] MEDS: VITAMIN B1 100 MG PO ×2 (13:50→20:17)
[2023-06-01 13:51] LABS: Glucose - Point of Care 79 mg/dl (70-99)
[2023-06-01] MEDS: FARXIGA 10 MG PO (13:51)
[2023-06-01] MEDS: TOPROL XL 25 MG PO (13:51)
[2023-06-01] MEDS: ASPIR LOW (ENTERIC COATED) 81 MG PO (13:51)
[2023-06-01] MEDS: VITAMIN B-12 1000 MCG PO (13:52)
[2023-06-01] MEDS: FOLVITE 1 MG PO (13:52)
--- NOTE | 2023-06-01 15:14 | W.PN.UPDATE ---
Update Note
Progress Note Update
s/p endoscopy and colonoscopy (multiple polyps found). Would follow OR pathology and await results so a heart team discussion can be held. Continue GDMT. Oncology consult.
[2023-06-01] MEDS: FERRLECIT 110 MG IV (15:18)
[2023-06-01 17:17] LABS: Glucose - Point of Care > 600 mg/dl (70-99)
[2023-06-01 17:21] LABS: Glucose - Point of Care 128 mg/dl (70-99)
--- NOTE | 2023-06-01 17:21 | PTCARENOTE ---
AccuCheck done on pt skewed, unable to obtain good sample on test strip, however test strip resulted 'High'. AccuCheck repeated with good sample result is 128.
--- NOTE | 2023-06-01 19:17 | CON.CRS ---
Addendum entered and electronically signed by Patrice Rocha MD 06/01/23 19:32:
Spoke at length with patient and patient's ; explained the next step in workup is to follow-up the pathology from the biopsies and to evaluate for evidence of metastatic disease; if evidence of metastatic disease, he would need chemotherapy
upfront; if no metastatic disease, would need to discuss his operative risk with cardiology and cardiac surgery in order to identify whether he should undergo revascularization with CABG first versus colectomy first; patient and expressed
understanding and all questions were answered
Original Note:
Consultation
-
Performing Provider: Patrice Rocha MD
Reason for Consultation: ascending colon cancer
Medical History
-
History of Present Illness:
67-year-old male with a PMH of CHF (EF 30%), CAD (underwent cath on 02/2023 which showed significant 4- vessel disease, pending possible CABG with cardiac surgery, currently on DAPT), HTN, HLD, DM, recent TCAR on 04/2023 for carotid stenosis, who
presents with dyspnea on exertion, dizziness and 15 pound weight loss over the previous 6 months. He was found to have a hemoglobin of 5.4. He received 3 pRBCs and his hemoglobin is stable at 9.2. His Plavix was held and he underwent an EGD and
colonoscopy today, which showed a fungating, ulcerated, partially obstructing colon mass in the ascending colon which was biopsied and tattooed. We are consulted for further management.
He currently denies any dyspnea, SOB, chest pain since undergoing the transfusions. He denies any N/V, fevers, abdominal pain. Denies any blood in the stool. He never had a colonoscopy prior to today.
Past Medical History
Past Medical History: Other (Per HPI)
Past Surgical History: Other (TCAR 02/2023, appendectomy at 10 years old)
Social History
Tobacco: Former Smoker (3 PPD for 50 years, quit 1 to 2 months ago)
Alcohol: Occasional (Recently quit)
Living: With Family
Employment: Employed
Family History
Family History: Reviewed & Not Pertinent
Allergies / Home Medications
Allergy/AdvReac Type Severity Reaction Status Date / Time
No Known Allergies Allergy Verified 04/14/23 07:22
Medication Instructions Recorded Confirmed Type
folic acid 1 mg tablet 1 mg PO DAILY #30 tabs 03/03/23 05/28/23 Rx
metoprolol succinate 25 mg 25 mg PO DAILY #30 tabs 03/03/23 05/28/23 Rx
tablet,extended release 24 hr
thiamine HCl (vitamin B1) 100 mg 100 mg PO BID #60 tabs 03/03/23 05/28/23 Rx
tablet
clopidogrel 75 mg tablet (Plavix) 75 mg PO DAILY Blood Clot 04/10/23 05/28/23 History
Prevention/Tx
aspirin 81 mg tablet,delayed 81 mg PO DAILY Blood Clot 05/28/23 05/28/23 History
release Prevention/Tx
atorvastatin 80 mg tablet 80 mg PO HS High Cholesterol 05/28/23 05/28/23 History
dapagliflozin propanediol 5 mg 5 mg PO DAILY Heart 05/28/23 05/28/23 History
tablet (Farxiga) Disease/Condition
isosorbide mononitrate 30 mg 30 mg PO DAILY Supplement 05/28/23 05/28/23 History
tablet,extended release 24 hr
nitroglycerin 0.4 mg sublingual 0.4 mg sublingual [id number] PRN 05/28/23 05/28/23 History
tablet chest pain
Review of Systems
-
A 10 point review of systems was completed, and was negative except as per HPI.
Physical Exam
Vital Signs
Temp 98.9 F 06/01/23 16:00
Pulse 82 06/01/23 14:00
Resp Rate 20 06/01/23 16:00
Blood pressure 121/75 06/01/23 13:51
SaO2 98 06/01/23 16:00
05/31/23 06/01/23 06/02/23
06:59 06:59 06:59
Actual Weight 65.3 kg 65 kg
Body Mass Index (BMI) 23.1
Lab Results / Allergies
06/01/23 03:53
06/01/23 17:16
WBC 8.2 10^3/uL (4.8-10.8) 06/01/23 03:53
Hgb 9.2 g/dL (13.0-18.0) L 06/01/23 03:53
Hct 28.7 % (39.0-52.0) L 06/01/23 03:53
Plt Count 376 10^3/uL (130-400) 06/01/23 03:53
Abs Immat Gran (auto) 0.0 10^3/uL (0-0.05) 06/01/23 03:53
Neutrophils % 70.8 % (42.2-75.2) 06/01/23 03:53
Allergy/AdvReac Type Severity Reaction Status Date / Time
No Known Allergies Allergy Verified 04/14/23 07:22
Physical Exam
General: No Apparent Distress and Comfortable
HEENT: Normocephalic and Atraumatic
Respiratory: Non Labored Respirations
GI: Soft, Non Tender, Non Distended and Other (No rebound or guarding)
Skin: Warm and Dry
Neuro: AO x 3
Assessment / Plan
-
67-year-old male with a PMH of CHF (EF 30%), CAD (underwent cath on 02/2023 which showed significant 4- vessel disease, pending possible CABG with cardiac surgery, currently on DAPT), HTN, HLD, DM, recent TCAR on 04/2023 for carotid stenosis, who
presents with dyspnea on exertion, dizziness and 15 pound weight loss over the previous 6 months. He was found to have a hemoglobin of 5.4. He received 3 pRBCs and his hemoglobin is stable at 9.2. His Plavix was held and he underwent an EGD and
colonoscopy today, which showed a fungating, ulcerated, partially obstructing colon mass in the ascending colon which was biopsied and tattooed. We are consulted for further management.
-Will need staging workup with CEA and CT CAP with IV contrast
� Follow-up pathology
� If no evidence of metastatic disease, will need to have a conversation with cardiology and cardiac surgery about his operative risk; will need to decide if revascularization with CABG should take place prior to a colectomy
� Continue to hold blood thinners
� Okay for diet
� Appreciate hospitalist
--- NOTE | 2023-06-01 19:53 | PTCARENOTE ---
Patient in chair opening his cookies on his table said was using his teeth to open the package. 20 beat run of non-sustained wide complex tachycardia HR 110. VSS, denies any symptoms of shortness of breath or chest pain. Strip mounted in the chart
[2023-06-01] MEDS: LIPITOR 80 MG PO (20:17)
[2023-06-01 21:58] LABS: Glucose - Point of Care 256 mg/dl (70-99)
[2023-06-02] MEDS: TYLENOL PO ×6 (00:12→21:33)
--- NOTE | 2023-06-02 00:43 | PTCARENOTE ---
Patient resting comfortable, VSS, offers no complaints. SR of tele, lungs CTA, 98% on room air. call retana in reach
[2023-06-02 05:28] VITALS: BP 98/62
[2023-06-02 05:53] VITALS: BMI 23.6
[2023-06-02 06:16] LABS: Hematocrit 26.1 % (39.0-52.0); Hemoglobin 8.3 g/dL (13.0-18.0); Mean Corp Hgb Conc. 31.8 g/dL (33.0-37.0); Mean Corpuscular Hgb 26.4 pg (27.0-31.0); Mean Corpuscular Volume 83.1 fL (80.0-94.0); Mean Platelet Volume 9.1 fL (7.4-10.4); Platelet Count 361 10^3/uL (130-400); Red Blood Cell Count 3.14 10^6/uL (4.70-6.10); Red Cell Dist. Width 17.9 % (11.5-14.5); White Blood Cell Count 8.4 10^3/uL (4.8-10.8)
[2023-06-02 06:44] LABS: Blood Urea Nitrogen 13 mg/dl (9-20); Calcium 8.7 mg/dl (8.4-10.2); Carbon Dioxide 24 mmol/L (22-30); Chloride 104 mmol/L (98-107); Estimated Creatinine Clearance 95 ml/min; Glucose 99 mg/dl (70-99); Sodium 137 mmol/L (135-145); eGFR > 60.00
[2023-06-02 07:13] VITALS: BP 101/69
[2023-06-02 07:13] LABS: CEA 3.75 ng/ml
[2023-06-02] MEDS: OMNIPAQUE 50 ML PO (08:19)
[2023-06-02] MEDS: FOLVITE 1 MG PO (08:23)
[2023-06-02] MEDS: VITAMIN B1 100 MG PO ×2 (08:23→20:37)
[2023-06-02] MEDS: TOPROL XL 25 MG PO (08:23)
[2023-06-02] MEDS: ASPIR LOW (ENTERIC COATED) 81 MG PO (08:24)
[2023-06-02] MEDS: VITAMIN B-12 1000 MCG PO (08:24)
[2023-06-02] MEDS: FARXIGA 10 MG PO (08:24)
[2023-06-02 08:31] LABS: Glucose - Point of Care 100 mg/dl (70-99)
--- NOTE | 2023-06-02 08:46 | W.PN.CD ---
Today's Communication / Plan
-
cotninue medical management
if gets prbcs can follow with a dose of lasix
Impression / Plan
-
Impression/Plan: 67 y/o male with HTN, HLD, tobacco abuse, VON s/p right TCAR, severe CAD (including left main coronary artery) and ischemic cardiomyopathy (LVEF) admitted from the office for accelerating angina and shortness in breath, found to be
profoundly anemic.
# colon mass
Cscope 06/01/23:Hemorrhoids found on perianal exam.
�� � � � � � � � � � � - Malignant tumor in the proximal ascending colon.
�� � � � � � � � � � � Biopsied.
�� � � � Staging studies planned to determine course of treatment
#Anemia due to blood losses
-Unclear duration. Near normal in 02/2023 but progressively worse starting in April.
-Hbg 5.4 on presentation.
-S/P transfusion of 3 units of PRBC's. - reports more brbpr last night and hgb down to 8.3 from 9.2
#CAD
-Chronic, severe.
-Previously asymptomatic, but now symptomatic with anemia,Improved with PRBC,
-Currently cp free
-Troponin elevated but stuttering - inconsistent with ACS. This is likely due to poor O2 carrying capacity and volume overload.
-Patient will require revascularization - however still with active blood loss, date TBD.
-overall a high risk scenario
#ICMO/HFrEF
-Acute on chronic this admit, improved.
-Likely had some volume overload, worsened by transfusion.
-lasix given this admit-mild interstitial edema.
-appears euvolemic currently
-GDMT as hemodynamics will tolerate.
#VON
-Chronic, stable.
-S/P right TCAR.
#HLD
-Chronic, stable.
-High dose, high potency statin.
Subjective:
still with brbpr last night, no cp or sob.
DATA:
Cardiac catheterization 02/20/2023:
CONCLUSIONS
1.� Right dominant circulation with 70% lesion in the mid RCA, an eccentric, 80% lesion in the distal left main extending into the 70% ostial LAD and 80% ostial circumflex lesions, a subtotal occlusion of the proximal LAD immediately proximal to the
origin of the diagonal and a 70% lesion in the origin of the large obtuse marginal.
2.� Normal filling pressures (LVEDP = 10 mmHg at 65.3 kg).
3.� Severe systolic cardiomyopathy on echocardiography (LV ejection fraction = 30%).
Physical Exam
Vital Signs/Labs
Vital Signs
Temp Pulse Resp BP Pulse Ox
97.9 F 82 16 98/62 95
06/02/23 08:15 06/02/23 05:28 06/02/23 08:15 06/02/23 05:28 06/02/23 08:15
06/01/23 06/02/23 06/03/23
06:59 06:59 06:59
Actual Weight 65 kg 66.2 kg
06/02/23 05:37
06/02/23 05:37
PT 14.0 Sec (11.4-14.6) 05/28/23 11:03
INR 1.05 05/28/23 11:03
APTT 38.4 Sec (23.4-35.0) H 05/28/23 11:03
Magnesium 2.2 mg/dl (1.6-2.3) 05/30/23 04:15
Triglycerides 85 mg/dl (10-149) 05/29/23 03:27
LDL Cholesterol, Calc 94 mg/dl 05/29/23 03:27
VLDL Cholesterol, Calc 17 mg/dl (0-30) 05/29/23 03:27
HDL Cholesterol 28 mg/dl 05/29/23 03:27
05/29/23
03:27
Owb-W-[id number] Pept 3270
Physical Exam
Constitutional: No acute distress
Cardiovascular: Rhythm & rate is regular, Pedal edema is absent, JVD pressure is normal, Systolic murmur absent and Diastolic murmur absent
Respiratory: Respiratory effort normal, Lungs clear to auscul., Wheeze Absent, Crackles Absent and Rhonchi Absent
GI: Soft
Neuro/Psych: AO x 3
Data Reviewed
-
Date of Service: June 02, 2023
[2023-06-02] MEDS: NOVOLOG FLEXPEN-LOW RESISTANCE SC ×2 (09:07→12:13)
--- NOTE | 2023-06-02 10:05 | W.PN.UPDATE ---
Update Note
Progress Note Update
Results of Colonoscopy discussed with Dr. Escoto who recommends continued Imdur as patient remains chest pain free. Dr. Escoto also recommends discharge to home per primary team while metastatic work-up initiated. Plan to follow-up in CT
office in 3 weeks.
--- NOTE | 2023-06-02 10:24 | W.PN.CRS1 ---
Today's Communication / Plan
-
Follow-up CT CAP and CEA
If no metastatic disease; will need cardiac risk stratification to determine whether revascularization should occur prior to colectomy
Monitor blood per rectum, trend H&H; likely related to polypectomies and tumor biopsies
Assessment/Plan
-
67-year-old male with a PMH of CHF (EF 30%), CAD (underwent cath on 02/2023 which showed significant 4- vessel disease, pending possible CABG with cardiac surgery, currently on DAPT), HTN, HLD, DM, recent TCAR on 04/2023 for carotid stenosis, who
presents with dyspnea on exertion, dizziness and 15 pound weight loss over the previous 6 months.� He was found to have a hemoglobin of 5.4.� He received 3 pRBCs and his hemoglobin is stable at 9.2.� His Plavix was held and he underwent an EGD and
colonoscopy today, which showed a fungating, ulcerated, partially obstructing colon mass in the ascending colon which was biopsied and tattooed.� We are consulted for further management.
-Will need staging workup with CEA and CT CAP with IV contrast
� Follow-up pathology
� If no evidence of metastatic disease, will need to have a conversation with cardiology and cardiac surgery about his operative risk
-depending on his cardiac risk for non-cardiac surgery, he may require revascularization prior to colectomy
� Continue to hold blood thinners; trend H/H
-rectal bleeding likely related to multiple polypectomies and tumor biospies, should self-resolve; cont to monitor
� Okay for diet from surgical standpoint
� Appreciate hospitalist
Subjective Data
Subjective Data
Date of Service: June 02, 2023
Overnight, had episodes of blood per rectum, none this morning so far.
Denies any pain.
Denies nausea/vomiting.
+voiding
Pt is OOB.
Objective Data
-
Vital Signs
Temp Pulse Resp BP Pulse Ox
97.9 F 77 16 101/69 95
06/02/23 08:15 06/02/23 10:00 06/02/23 08:15 06/02/23 07:13 06/02/23 08:15
Intake & Output
06/01/23 06/02/23 06/03/23
06:59 06:59 06:59
Intake Total 480 / 480 925 / 925
Balance 480 / 480 925 / 925
Intake:
Oral fluids 480 / 480
IV piggybacks 925 / 925
Lab Results
06/02/23 05:37
06/02/23 05:37
Physical Exam
-
General: No Acute Distress and AOx3
HEENT: Grossly Normal
Abdomen: Soft, Non Distended, Non Tender, No Guarding and No Rebound
Skin: Warm and Dry
--- NOTE | 2023-06-02 11:30 | W.PN.HOSP.TC ---
Today's Communication/Plan
-
Follow hemoglobin
CAT scan of the abdomen pelvis
Assessment / Plan
Assessment / Plan
67-year-old male admitted with angina and shortness of breath was found to be severely anemic.
On examination not in acute distress
Cardiovascular system S1-S2 appreciated
chest CTA
Abdomen soft and nontender
No pedal edema
06/01/2023-endoscopy normal esophagus. Normal stomach and duodenal bulb.
06/01/20237705-[id number]-rglqnyewsak, villous fungating and ulcerated nonobstructing large mass in the proximal ascending colon. Partially circumferential biopsied. Several polyps in the ascending, transverse, sigmoid-all removed
# Anemia secondary to proximal ascending colon mass
Possibly subacute GI blood loss exacerbated by Plavix and aspirin
Hemoglobin was 5.4 on admission today after 3 units 8.3 today
Colorectal surgery consulted
CT scan of the abdomen and pelvis as planned given prior to the colonoscopy is being done today.-This was ordered for weight loss. Will also act as staging CAT scan.
Iron studies indicating severe iron deficiency-IV iron
Low normal B12 -replace
# Coronary disease-
Cardiac catheterization February 2023 multivessel coronary disease EF 30%
Patient will require CABG-timing to be determined by CT surgery
Continue aspirin, statin, Imdur, metoprolol
Plavix on hold
# Non-LA troponin elevation secondary to severe anemia
No heparin drip
# Acute on chronic heart failure with reduced ejection fraction
Ischemic cardiomyopathy
Continue metoprolol, Farxiga
# [id number]
# Diabetes-HbA1C Not reliable
Accu-Cheks and sliding scale coverage
Also continue Farxiga
# Atherosclerosis
# History of right carotid TCAR on 04/14/[address] Triplett
# Hyperlipidemia-continue statin
# Heavy smoking history recently quit
Continue cessation counseling
# Marijuana use
# 20 lb weight loss in [address] - [address] C/A/P Thursday
# Multilevel DJD/Arthritis
# DVT prophylaxis-SCDs
# Full code
Discussed with nursing
Colorectal surgery discussed with patient's yesterday therefore I have not called.
Anticipated Discharge: > 48 hours
Subjective/Interval History
-
Date of Service: June 02, 2023
Objective Data
-
Labs:
Laboratory Results
06/02/23
05:37
WBC 8.4
Hgb 8.3 L
Hct 26.1 L
Plt Count 361
Sodium 137
Potassium 4.0
Chloride 104
Carbon Dioxide 24
BUN 13
Creatinine 0.7
Glucose 99
Calcium 8.7
Vital Signs:
Vital Signs
Temp Pulse Resp BP Pulse Ox
97.9 F 77 16 101/69 95
06/02/23 08:15 06/02/23 10:00 06/02/23 08:15 06/02/23 07:13 06/02/23 08:15
I&O
06/01/23 06/02/23 06/03/23
06:59 06:59 06:59
Intake Total 480 / 480 925 / 925
Balance 480 / 480 925 / 925
--- NOTE | 2023-06-02 12:00 | PTCARENOTE ---
No acute changes. Patient returned from ct scan. No pain. No bm
[2023-06-02 12:15] LABS: Glucose - Point of Care 113 mg/dl (70-99)
[2023-06-02 12:36] VITALS: BP 100/51
[2023-06-02] MEDS: FERRLECIT 110 MG IV (14:03)
--- NOTE | 2023-06-02 16:00 | PTCARENOTE ---
No acute changes. Vitals stable. No gi bleeding
[2023-06-02 16:39] VITALS: BP 108/69
[2023-06-02] MEDS: NOVOLOG FLEXPEN-LOW RESISTANCE 1 UNITS SC (17:51)
[2023-06-02 17:54] LABS: Glucose - Point of Care 178 mg/dl (70-99)
[2023-06-02 19:08] VITALS: BP 110/65
--- NOTE | 2023-06-02 20:00 | PTCARENOTE ---
Assumed care. Patient walking in hallways. Denies pain. SR on tele. Abdomen soft and non-tender. He did report having 2 stools that were formed brown with some blood. Tolerating diet. Call retana in reach
[2023-06-02] MEDS: LIPITOR 80 MG PO (20:37)
[2023-06-02 21:26] LABS: Glucose - Point of Care 163 mg/dl (70-99)
[2023-06-02 23:06] VITALS: BP 96/45
[2023-06-02 23:16] LABS: Copper, Serum 237.5 ug/dL (70.0-140.0)
[2023-06-03] VITALS (13 sets, daily range): BP systolic 85–118; BP diastolic 58–81; BMI 23.6
[2023-06-03] MEDS: TYLENOL PO ×6 (01:08→19:59)
[2023-06-03 05:03] LABS: Hematocrit 26.7 % (39.0-52.0); Hemoglobin 8.4 g/dL (13.0-18.0); Mean Corp Hgb Conc. 31.5 g/dL (33.0-37.0); Mean Corpuscular Hgb 26.8 pg (27.0-31.0); Mean Corpuscular Volume 85.3 fL (80.0-94.0); Mean Platelet Volume 8.9 fL (7.4-10.4); Platelet Count 334 10^3/uL (130-400); Red Blood Cell Count 3.13 10^6/uL (4.70-6.10); Red Cell Dist. Width 18.5 % (11.5-14.5); White Blood Cell Count 7.1 10^3/uL (4.8-10.8)
[2023-06-03 07:15] LABS: Glucose - Point of Care 111 mg/dl (70-99)
[2023-06-03] MEDS: NOVOLOG FLEXPEN-LOW RESISTANCE SC ×3 (07:25→16:42)
[2023-06-03] MEDS: ASPIR LOW (ENTERIC COATED) 81 MG PO (07:45)
[2023-06-03] MEDS: FARXIGA 10 MG PO (07:45)
[2023-06-03] MEDS: TOPROL XL 25 MG PO (07:46)
[2023-06-03] MEDS: VITAMIN B1 100 MG PO ×2 (07:46→19:59)
[2023-06-03] MEDS: FOLVITE 1 MG PO (07:46)
[2023-06-03] MEDS: VITAMIN B-12 1000 MCG PO (07:46)
[2023-06-03] MEDS: FLUSH (NSS) 2 FLUSH IV (07:47)
--- NOTE | 2023-06-03 08:43 | W.PN.HOSP.TC ---
Today's Communication/Plan
-
CT surgery and cardiology may need to get input regarding cardiac risk for colectomy.
Also timing for CABG and colectomy need to be sorted out.
If it is not being considered this week patient would like to go home and come back for surgery.
Assessment / Plan
Assessment / Plan
67-year-old male admitted with angina and shortness of breath was found to be severely anemic.
On examination not in acute distress
Cardiovascular system S1-S2 appreciated
chest CTA
Abdomen soft and nontender
No pedal edema
06/01/2023-endoscopy normal esophagus. Normal stomach and duodenal bulb.
06/01/[id number]-hsmcevysspy, villous fungating and ulcerated nonobstructing large mass in the proximal ascending colon. Partially circumferential biopsied. Several polyps in the ascending, transverse, sigmoid-all removed
# Villous fungating mass in the proximal ascending colon likely malignant.
CT scan without any changes elsewhere even though there are very small liver lesions could not be characterized at this point.
Timing for CABG versus colectomy may need to be planned
If CABG is being postponed. Patient may need cardiac clearance for colectomy. Discussed with colorectal surgery and
# Anemia secondary to proximal ascending colon mass
Possibly subacute GI blood loss exacerbated by Plavix and aspirin
Hemoglobin was 5.4 on admission today after 3 units 8.2 today
Colorectal surgery consulted
CT scan of the abdomen and pelvis as planned given prior to the colonoscopy is being done today.-This was ordered for weight loss. Will also act as staging CAT scan.
Iron studies indicating severe iron deficiency-S/P IV iron
Low normal B12 -replace
# Coronary disease-
Cardiac catheterization February 2023 multivessel coronary disease EF 30%
Patient will require CABG-timing to be determined by CT surgery
Continue aspirin, statin, Imdur, metoprolol
Plavix on hold
# Non-ME troponin elevation secondary to severe anemia
No heparin drip
# Acute on chronic heart failure with reduced ejection fraction
Ischemic cardiomyopathy
Continue metoprolol, Farxiga
# Ajwutopqufao-uufu-lakieny
# Diabetes-HbA1C Not reliable
Accu-Cheks and sliding scale coverage
Also continue Farxiga
# Atherosclerosis
# History of right carotid TCAR on 04/14/[address] Triplett
# Hyperlipidemia-continue statin
# Heavy smoking history recently quit
Continue cessation counseling
# Marijuana use
# 20 lb weight loss in [address] C/A/P Thursday
# Multilevel DJD/Arthritis
# DVT prophylaxis-SCDs
# Full code
Discussed with nursing
Send a message to cardiology
Discussed with colorectal surgery
Anticipated Discharge: > 48 hours
Subjective/Interval History
-
Date of Service: June 03, 2023
Objective Data
-
Labs:
Laboratory Results
06/03/23
04:50
WBC 7.1
Hgb 8.4 L
Hct 26.7 L
Plt Count 334
Vital Signs:
Vital Signs
Temp Pulse Resp BP Pulse Ox
98.2 F 85 16 118/81 97
06/03/23 07:21 06/03/23 07:46 06/03/23 07:21 06/03/23 07:46 06/03/23 07:21
I&O
06/02/23 06/03/23 06/04/23
06:59 06:59 06:59
Intake Total 925 / 925 1310 / 1310
Balance 925 / 925 1310 / 1310
[2023-06-03 09:27] LABS: Vitamin B1, Whole Blood 207 nmol/L (70-180)
--- NOTE | 2023-06-03 11:14 | CM ---
Chart reviewed. Patient is independent of ADLS, lives with his in a 1 STH, 0 CL, 0 DME. Patient currently with no discharge needs. CM to follow
--- NOTE | 2023-06-03 11:33 | PTCARENOTE ---
The patient has been oob frequently ambulating in the halls. His vital signs remain stable. NSR is noted on the monitor. He has had no complaints of pain or SOB. He is hoping to go home today.
[2023-06-03 11:53] LABS: Glucose - Point of Care 115 mg/dl (70-99)
--- NOTE | 2023-06-03 12:35 | W.PN.CD ---
Today's Communication / Plan
-
Discussion of order of operations with CTS/CRS.
The issue is going to be timing of surgical intervention.
The patient does not have symptoms when his Hbg is reasonable and his echo is stable.
However, he did develop symptoms and troponin elevation when stressed with poor oxygen carrying capacity.
If we can maintain his H/H, he may be appropriate for colectomy followed by CABG.
If his cardiac issues supercede, he may require CABG prior to colectomy.
This will need to be reviewed CRS/CTS.
Transfuse one unit of PRBC's.
H/H tomorrow. If he responds appropriately, we will discharge to outpatient follow up.
Impression / Plan
-
Impression/Plan: 67 y/o male with HTN, HLD, tobacco abuse, VON s/p right TCAR, severe CAD (including left main coronary artery) and ischemic cardiomyopathy (LVEF) admitted from the office for accelerating angina and shortness in breath, found to be
profoundly anemic.
#Colon mass
-Colonoscopy discovered a fungating, partially occlusive mass in the ascending colon - biopsied and tattooed.
-CRS consulted.
#Anemia due to blood losses
-Unclear duration. Near normal in 02/2023 but progressively worse starting in April.
-Hbg 5.4 on presentation.
-S/P transfusion of 3 units of PRBC's.
-Post colonoscopy BRBPR and hgb down to 8.3 from 9.2. CRS believes this is from multiple biopsies and will resolve. Hbg stable at 8.4.
-Transfuse one unit of PRBC's to get closer to 03/02.
#CAD
-Chronic, severe.
-Previously asymptomatic, but now symptomatic with anemia.
-Improved with PRBC and diuresis.
-Currently chest pain free.
-Troponin elevated but stuttering - inconsistent with ACS. This is likely due to poor O2 carrying capacity and volume overload.
-Patient will require revascularization - however still with active blood loss, date TBD.
-Overall a high risk scenario.
-I will discuss order of operations with CTS/CRS.
#ICMO/HFrEF
-Acute on chronic this admit, improved.
-Likely had some volume overload, worsened by transfusion.
-Euvolemic after diuretics.
-GDMT as hemodynamics will tolerate.
#VON
-Chronic, stable.
-S/P right TCAR.
#HLD
-Chronic, stable.
-High dose, high potency statin.
Subjective:
Modest hypotension overnight (85/58 @ 4:[address]).
[address] CAP shows no evidence of metastatic disease.
Hbg stable (8.4 <-- 8.3).
DATA:
Cardiac catheterization 02/20/2023:
CONCLUSIONS
1.� Right dominant circulation with 70% lesion in the mid RCA, an eccentric, 80% lesion in the distal left main extending into the 70% ostial LAD and 80% ostial circumflex lesions, a subtotal occlusion of the proximal LAD immediately proximal to the
origin of the diagonal and a 70% lesion in the origin of the large obtuse marginal.
2.� Normal filling pressures (LVEDP = 10 mmHg at 65.3 kg).
3.� Severe systolic cardiomyopathy on echocardiography (LV ejection fraction = 30%).
EGD, 06/01/2023:
Impression:
- Normal esophagus.
- No gross lesions in the entire stomach.
- Normal duodenal bulb, first portion of the duodenum and second portion of the duodenum.
- No specimens collected.
Colonoscopy:, 06/01/2023:
Impression:
- Hemorrhoids found on perianal exam.
- One 30 mm polyp in the cecum.
- Malignant tumor in the proximal ascending colon. Biopsied. Tattooed.
- Five 6 to 14 mm polyps in the ascending colon, removed with a cold snare. Resected and retrieved.
- One 10 mm polyp in the transverse colon, removed with a cold snare. Resected and retrieved.
- Five 6 to 13 mm polyps in the sigmoid colon, removed with a cold snare. Resected and retrieved.
- One 13 mm polyp in the sigmoid colon, removed with a cold snare. Resected and retrieved.
- One 25 mm polyp in the sigmoid colon, removed with a hot snare. Resected and retrieved.
- Internal hemorrhoids.
CT Chest/Abdomen/Pelvis, 06/02/2023:
IMPRESSION:
1).There is a 4 cm in length circumferential annular constricting mass in the proximal ascending colon just above the ileocecal valve worrisome for adenocarcinoma
2). There is mild bowel wall thickening in the sigmoid colon (image 59 series 301) which may be due to incomplete distention.
3). Nonurgent findings include:
-Atherosclerosis
-Calcification in the prostate
-Multilevel lumbar degenerative disc disease
-minimal left pleural effusion
-Minimal dependent atelectasis at the posterior aspect of both lungs
-Less than 5 mm low density hepatic lesions which most likely are hepatic cysts but are too small to accurately characterize.
Physical Exam
Vital Signs/Labs
Vital Signs
Temp Pulse Resp BP Pulse Ox
36.6 C 71 14 108/69 98
06/03/23 11:49 06/03/23 12:00 06/03/23 11:49 06/03/23 11:49 06/03/23 11:49
06/02/23 06/03/23 06/04/23
11:59 11:59 11:59
Actual Weight 66.2 kg 66.4 kg
06/03/23 04:50
06/02/23 05:37
PT 14.0 Sec (11.4-14.6) 05/28/23 11:03
INR 1.05 05/28/23 11:03
APTT 38.4 Sec (23.4-35.0) H 05/28/23 11:03
Magnesium 2.2 mg/dl (1.6-2.3) 05/30/23 04:15
Triglycerides 85 mg/dl (10-149) 05/29/23 03:27
LDL Cholesterol, Calc 94 mg/dl 05/29/23 03:27
VLDL Cholesterol, Calc 17 mg/dl (0-30) 05/29/23 03:27
HDL Cholesterol 28 mg/dl 05/29/23 03:27
05/29/23
03:27
Zix-V-Itjfrstzphn Pept 3270
Physical Exam
Constitutional: No acute distress and Comfortable
EENT: Anicteric and Moist mucous membranes
Cardiovascular: Rhythm & rate is regular, Pedal edema is absent, JVD pressure is normal, S1S2 is normal and Murmur/rub/gallop absent
Respiratory: Respiratory effort normal, Lungs clear to auscul., Wheeze Absent, Crackles Absent and Rhonchi Absent
GI: Soft, Distention absent, Flat, Non tender and Normal bowel sounds
Neuro/Psych: AO x 3
Data Reviewed
-
Date of Service: June 03, 2023
Medical Decision Making: Reviewed Test Results, Independent Historian Assessment, Test Interpretation and Review of Case with other Provider
EKG: Tracing Personally Visualized and interpreted and Report Reviewed by me
X-Ray/CT/US/MRI/NUC/PET: Image Personally Visualized and interpreted and Report Reviewed by me
Medical Tests (PFT, Pathology etc): Image Personally Visualized and interpreted and Report Reviewed by me
Labs: Labs Reviewed by me
--- NOTE | 2023-06-03 13:23 | W.PN.CRS1 ---
Today's Communication / Plan
-
path pending
input from cardiology
Assessment/Plan
-
Assessment: 67yo male with fungating, ulcerated, partially obstructing colon mass in the ascending colon which was biopsied and tattooed
1. We will need input from CT surgery and cardiology for cardiac risk.
2. Patient may want to go home and follow-up as an outpatient.
3. Continue regular diet for now as no plans for surgery in the immediate future until cardiac issues or sorted out.
4. Follow pathology
Subjective Data
Subjective Data
Date of Service: June 03, 2023
Patient states he feels good. He denies rectal bleeding. He is having bowel movements. He denies nausea or vomiting. He has no abdominal pain.
Objective Data
-
Vital Signs
Temp Pulse Resp BP Pulse Ox
98 F 71 14 108/69 98
06/03/23 11:49 06/03/23 12:00 06/03/23 11:49 06/03/23 11:49 06/03/23 11:49
Intake & Output
06/02/23 06/03/23 06/04/23
06:59 06:59 06:59
Intake Total 925 / 925 1310 / 1310
Balance 925 / 925 1310 / 1310
Intake:
Oral fluids 1310 / 1310
IV piggybacks 925 / 925
Other:
Number of approximated LARGE 2
amounts of urine
Lab Results
06/03/23 04:50
06/02/23 05:37
Physical Exam
-
General: No Acute Distress and AOx3
Abdomen: Soft, Non Distended and Non Tender
Skin: Warm and Dry
--- NOTE | 2023-06-03 14:48 | W.PN.UPDATE ---
Update Note
Progress Note Update
Pt well known to me
asymptomatic presentation of CAD
Found to have possible Left main with 3vcad as well as moderate LV dysfunction
Was planned for elective cabg as outpt
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
Underwent uneventful TCAR procedure
Re-presented with symptoms of angina and sob with hgb of 5.4
Recieved tx of multiple PRBCs
Now asymptomatic again with hgb 8.4
Found to have adenocarcioma of ascending colon responsible for GI Bleed
He has tolerated his hgb of 5.4 without trops, echo, or ecg changes
I think he should undergo colon resection prior to cabg
Would prob tx more blood preop
[2023-06-03 16:43] LABS: Glucose - Point of Care 123 mg/dl (70-99)
[2023-06-03 21:39] LABS: Glucose - Point of Care 110 mg/dl (70-99)
[2023-06-03] MEDS: LIPITOR 80 MG PO (22:39)
--- NOTE | 2023-06-03 23:21 | PTCARENOTE ---
Received pt at handoff. AOX3. Assessment noted as documented. VSS. Pt tolerated 1 unit of PRBC. No c/o pain/discomfort. Ambulating in room w/ steady gait. Currently resting in bed; call retana w/in reach.
[2023-06-04] MEDS: TYLENOL PO ×3 (01:39→08:56)
[2023-06-04 04:04] VITALS: BP 112/76
[2023-06-04 04:19] VITALS: BMI 23.9
[2023-06-04 04:46] LABS: Hematocrit 30.5 % (39.0-52.0); Hemoglobin 9.7 g/dL (13.0-18.0); Mean Corp Hgb Conc. 31.8 g/dL (33.0-37.0); Mean Corpuscular Hgb 27.7 pg (27.0-31.0); Mean Corpuscular Volume 87.1 fL (80.0-94.0); Mean Platelet Volume 9.1 fL (7.4-10.4); Platelet Count 346 10^3/uL (130-400); Red Cell Dist. Width 18.6 % (11.5-14.5); White Blood Cell Count 7.5 10^3/uL (4.8-10.8)
[2023-06-04 05:22] LABS: Blood Urea Nitrogen 16 mg/dl (9-20); Carbon Dioxide 27 mmol/L (22-30); Chloride 102 mmol/L (98-107); Estimated Creatinine Clearance 95 ml/min; Glucose 99 mg/dl (70-99); Potassium 4.1 mmol/L (3.5-5.1); Sodium 137 mmol/L (135-145); eGFR > 60.00
[2023-06-04 07:28] LABS: Glucose - Point of Care 96 mg/dl (70-99)
[2023-06-04 08:08] VITALS: BP 100/61
[2023-06-04] MEDS: VITAMIN B1 100 MG PO (08:54)
[2023-06-04] MEDS: NOVOLOG FLEXPEN-LOW RESISTANCE SC ×2 (08:54→11:43)
[2023-06-04] MEDS: FARXIGA 10 MG PO (08:54)
[2023-06-04] MEDS: ASPIR LOW (ENTERIC COATED) 81 MG PO (08:55)
[2023-06-04] MEDS: VITAMIN B-12 1000 MCG PO (08:55)
[2023-06-04] MEDS: FOLVITE 1 MG PO (08:55)
[2023-06-04] MEDS: TOPROL XL 25 MG PO (08:55)
--- NOTE | 2023-06-04 09:01 | W.PN.CD ---
Today's Communication / Plan
-
Confirm surgical plan/date with CRS.
H/H early next week.
CABG after colectomy.
Stable for outpatient follow up.
Impression / Plan
-
Impression/Plan: 67 y/o male with HTN, HLD, tobacco abuse, VON s/p right TCAR, severe CAD (including left main coronary artery) and ischemic cardiomyopathy (LVEF) admitted from the office for accelerating angina and shortness in breath, found to be
profoundly anemic.
#Colon Adenocarcinoma
-Colonoscopy discovered a fungating, partially occlusive mass in the ascending colon - biopsied and tattooed.
-Pathology shows invasive adenocarcinoma, moderately differentiated invading into the submucosa.
-CRS consulted.
-After thorough and thoughtful discussion, the plan has evolved to a point where we will anticipate high(er) risk colectomy with cardiac anesthesia given its relatively low bleeding risk. Post colectomy CABG will take place after recovery from
intra-abdominal surgery. There are advantages and disadvantages to either surgery proceeding first, but we feel that the patient's risk is lowered by proceeding with colectomy first given his lack of symptoms in the absence of anemia and relatively
low risk of significant blood loss. If we were unaware of his CAD, he would likely proceed along this course anyway as he is able to perform all ADL's (4 METS) without chest pain or shortness in breath. The CARP trial shows similar outcomes in
vascular (high risk) surgery regardless of coronary revascularization.
-Confirm plan with CRS and establish a tentative surgery date.
-Maintain beta niharika (without titrateion) throughout the entire perioperative period (reduced risk of CV /ID - POISE trial).
#Anemia due to blood losses
-Unclear duration. Near normal in 02/2023 but progressively worse starting in April.
-Hbg 5.4 on presentation.
-S/P transfusion of 3 units of PRBC's.
-Post colonoscopy BRBPR and hgb down to 8.3 from 9.2. CRS believes this is from multiple biopsies and will resolve. Hbg stable at 8.4.
-Transfuse one unit of PRBC's to get closer to 03/02.
#CAD
-Chronic, severe.
-Previously asymptomatic, but now symptomatic with anemia.
-Improved with PRBC and diuresis.
-Currently chest pain free.
-Troponin elevated but stuttering - inconsistent with ACS. This is likely due to poor O2 carrying capacity and volume overload.
-Plan for CABG after colon resection. See above.
#ICMO/HFrEF
-Acute on chronic this admit, improved.
-Likely had some volume overload, worsened by transfusion.
-Euvolemic after diuretics.
-GDMT as hemodynamics will tolerate.
#VON
-Chronic, stable.
-S/P right TCAR.
#HLD
-Chronic, stable.
-High dose, high potency statin.
Subjective:
Pathology confirms invasive colon adenocarcinoma.
Hbg up to 9.7 after transfusion.
Feels well.
DATA:
Cardiac catheterization 02/20/2023:
CONCLUSIONS
1.� Right dominant circulation with 70% lesion in the mid RCA, an eccentric, 80% lesion in the distal left main extending into the 70% ostial LAD and 80% ostial circumflex lesions, a subtotal occlusion of the proximal LAD immediately proximal to the
origin of the diagonal and a 70% lesion in the origin of the large obtuse marginal.
2.� Normal filling pressures (LVEDP = 10 mmHg at 65.3 kg).
3.� Severe systolic cardiomyopathy on echocardiography (LV ejection fraction = 30%).
EGD, 06/01/2023:
Impression:
- Normal esophagus.
- No gross lesions in the entire stomach.
- Normal duodenal bulb, first portion of the duodenum and second portion of the duodenum.
- No specimens collected.
Colonoscopy:, 06/01/2023:
Impression:
- Hemorrhoids found on perianal exam.
- One 30 mm polyp in the cecum.
- Malignant tumor in the proximal ascending colon. Biopsied. Tattooed.
- Five 6 to 14 mm polyps in the ascending colon, removed with a cold snare. Resected and retrieved.
- One 10 mm polyp in the transverse colon, removed with a cold snare. Resected and retrieved.
- Five 6 to 13 mm polyps in the sigmoid colon, removed with a cold snare. Resected and retrieved.
- One 13 mm polyp in the sigmoid colon, removed with a cold snare. Resected and retrieved.
- One 25 mm polyp in the sigmoid colon, removed with a hot snare. Resected and retrieved.
- Internal hemorrhoids.
CT Chest/Abdomen/Pelvis, 06/02/2023:
IMPRESSION:
1).There is a 4 cm in length circumferential annular constricting mass in the proximal ascending colon just above the ileocecal valve worrisome for adenocarcinoma
2). There is mild bowel wall thickening in the sigmoid colon (image 59 series 301) which may be due to incomplete distention.
3). Nonurgent findings include:
-Atherosclerosis
-Calcification in the prostate
-Multilevel lumbar degenerative disc disease
-minimal left pleural effusion
-Minimal dependent atelectasis at the posterior aspect of both lungs
-Less than 5 mm low density hepatic lesions which most likely are hepatic cysts but are too small to accurately characterize.
Physical Exam
Vital Signs/Labs
Vital Signs
Temp Pulse Resp BP Pulse Ox
36.6 C 64 20 100/61 98
06/04/23 08:06 06/04/23 08:08 06/04/23 08:06 06/04/23 08:08 06/04/23 08:51
06/02/23 06/03/23 06/04/23
11:59 11:59 11:59
Actual Weight 66.2 kg 66.4 kg 67 kg
06/04/23 04:11
06/04/23 04:11
PT 14.0 Sec (11.4-14.6) 05/28/23 11:03
INR 1.05 05/28/23 11:03
APTT 38.4 Sec (23.4-35.0) H 05/28/23 11:03
Magnesium 2.2 mg/dl (1.6-2.3) 05/30/23 04:15
Triglycerides 85 mg/dl (10-149) 05/29/23 03:27
LDL Cholesterol, Calc 94 mg/dl 05/29/23 03:27
VLDL Cholesterol, Calc 17 mg/dl (0-30) 05/29/23 03:27
HDL Cholesterol 28 mg/dl 05/29/23 03:27
05/29/23
03:27
Vso-C-Ewxounlzyqa Pept 3270
Physical Exam
Constitutional: No acute distress and Comfortable
EENT: Anicteric and Moist mucous membranes
Cardiovascular: Rhythm & rate is regular, Pedal edema is absent, JVD pressure is normal, S1S2 is normal and Murmur/rub/gallop absent
Respiratory: Respiratory effort normal, Lungs clear to auscul., Wheeze Absent, Crackles Absent and Rhonchi Absent
GI: Soft, Distention absent, Flat, Non tender and Normal bowel sounds
Neuro/Psych: AO x 3
Data Reviewed
-
Date of Service: June 04, 2023
Medical Decision Making: Reviewed Test Results, Independent Historian Assessment, Test Interpretation and Review of Case with other Provider
EKG: Tracing Personally Visualized and interpreted and Report Reviewed by me
Echo: Tracing Personally Visualized and interpreted and Report Reviewed by me
X-Ray/CT/US/MRI/NUC/PET: Image Personally Visualized and interpreted and Report Reviewed by me
Medical Tests (PFT, Pathology etc): Image Personally Visualized and interpreted, Report Reviewed by me, Discussed with Physician, Discussed with Nurse, Discussed with Patient and Discussed with Family
Labs: Labs Reviewed by me
Old Records: Reviewed
--- NOTE | 2023-06-04 09:02 | W.PN.HOSP.TC ---
Addendum entered and electronically signed by Tadeo Elena MD 06/04/23 11:19:
Discussed with cardiology, colorectal surgery. Okay for discharge today.
Left message for
Discharge cordination time 35 min
Original Note:
Today's Communication/Plan
-
Hemoglobin stable after transfusion
Patient is likely for discharge today after seen by cardiology and colorectal surgery
Patient is inquiring if he is getting an appointment time with colorectal office prior to discharge.
Assessment / Plan
Assessment / Plan
67-year-old male admitted with angina and shortness of breath was found to be severely anemic.
On examination not in acute distress
Cardiovascular system S1-S2 appreciated
chest CTA
Abdomen soft and nontender
No pedal edema
06/01/2023-endoscopy normal esophagus. Normal stomach and duodenal bulb.
06/01/20230298-vvlnlckrfam-clyufinbmte, villous fungating and ulcerated nonobstructing large mass in the proximal ascending colon. Partially circumferential biopsied. Several polyps in the ascending, transverse, sigmoid-all removed
# Villous fungating mass in the proximal ascending colon likely malignant.
CT scan without any changes elsewhere even though there are very small liver lesions could not be characterized at this point.
Timing for CABG versus colectomy may need to be planned
Colorectal surgery evaluation noted and appreciated
Patient is for colorectal surgery first-high risk but not prohibitive. Will require cardiac anesthesiologist during the procedure
Awaiting final pathology ,CEA noted
# Anemia secondary to proximal ascending colon mass
Possibly subacute GI blood loss exacerbated by Plavix and aspirin
Hemoglobin was 5.4 on admission today after 4 units 9.7 today
Colorectal surgery consulted
CT scan of the abdomen and pelvis as planned given prior to the colonoscopy is being done today.-This was ordered for weight loss. Will also act as staging CAT scan.
Iron studies indicating severe iron deficiency-S/P IV iron
Low normal B12 -replace
# Coronary disease-
Cardiac catheterization February 2023 multivessel coronary disease EF 30%
Patient will require CABG-timing to be determined by CT surgery
Continue aspirin, statin, Imdur, metoprolol
Plavix on hold
# Non-MO troponin elevation secondary to severe anemia
# Acute on chronic heart failure with reduced ejection fraction
Ischemic cardiomyopathy
Continue metoprolol, Farxiga
# Ilqtebiemwxa-hpdy-gesbpxu
# Diabetes-HbA1C Not reliable
Accu-Cheks and sliding scale coverage
Also continue Farxiga
# Atherosclerosis
# History of right carotid TCAR on 04/14/[address] Triplett
# Hyperlipidemia-continue statin
# Heavy smoking history recently quit
Continue cessation counseling
# Marijuana use
# 20 lb weight loss in 6 months
# Multilevel DJD/Arthritis
# DVT prophylaxis-SCDs
# Full code
Discussed with nursing
Discussed with cardiology and colorectal surgery
Anticipated Discharge: Today
Subjective/Interval History
-
Date of Service: June 04, 2023
Objective Data
-
Labs:
Laboratory Results
06/04/23
04:11
WBC 7.5
Hgb 9.7 L
Hct 30.5 L
Plt Count 346
Sodium 137
Potassium 4.1
Chloride 102
Carbon Dioxide 27
BUN 16
Creatinine 0.7
Glucose 99
Calcium 9.0
Vital Signs:
Vital Signs
Temp Pulse Resp BP Pulse Ox
98 F 64 20 100/61 98
06/04/23 08:06 06/04/23 08:08 06/04/23 08:06 06/04/23 08:08 06/04/23 08:51
I&O
06/03/23 06/04/23 06/05/23
06:59 06:59 06:59
Intake Total 1310 / 1310 970 / 970
Balance 1310 / 1310
--- NOTE | 2023-06-04 11:19 | W.DS.TRANS ---
Addendum entered and electronically signed by Tadeo Elena MD 06/04/23 16:22:
Dictation- [id number]
Original Note:
DC Summary - Dextrine Mixer
-
Discharge Instructions:
Discharge Diagnosis/Procedures Villous fungating mass in the proximal ascending
colon. Anemia with blood transfusion-4 units,
coronary artery disease, CHF, hypertension,
diabetes, atherosclerosis, history of right
carotid TCAR, high cholesterol, smoking history,
20 pound weight loss
Diet 2 Gram Sodium,Restrict fluids to 48 oz
Activity As tolerated,No strenuous activity
Driving Restrictions As prior to admission
Specialty Instructions Weigh Daily
Stop these medications: Plavix
Instructions:
Stand-Alone Forms:
Changes to Home Medications: Yes
Discharge Medications:
DC Medications w/original date entered in [employer] [facility]
aspirin 81 mg tablet,delayed release 81 mg PO DAILY Blood Clot Prevention/Tx 05/28/23
atorvastatin 80 mg tablet 80 mg PO HS High Cholesterol 05/28/23
nitroglycerin 0.4 mg sublingual tablet 0.4 mg sublingual [id number] PRN chest pain 05/28/23
cyanocobalamin (vitamin B-12) 1,000 mcg tablet 1,000 mcg PO DAILY Borderline B12 #30 tabs 06/04/23
dapagliflozin propanediol 10 mg tablet (Farxiga) 10 mg PO DAILY Heart disease/condition #30 tabs 06/04/23
folic acid 1 mg tablet 1 mg PO DAILY Supplement #30 tabs 06/04/23
isosorbide mononitrate 30 mg tablet,extended release 24 hr 30 mg PO DAILY Heart disease/condition #0 tabs 06/04/23
metoprolol succinate 25 mg tablet,extended release 24 hr 25 mg PO DAILY Heart Failure #30 tabs 06/04/23
polyethylene glycol 3350 17 gram/dose oral powder (Miralax) 4 g PO DAILY Constipation #119 grams 06/04/23
thiamine HCl (vitamin B1) 100 mg tablet 100 mg PO BID Supplement #60 tabs 06/04/23
Home Medication Changes
plavix stopped
Pending Results: Yes
Additional Pending Results:
biopsy
[2023-06-04 11:38] VITALS: BP 131/70
[2023-06-04 11:44] LABS: Glucose - Point of Care 94 mg/dl (70-99)
--- NOTE | 2023-06-04 12:11 | W.PN.CRS1 ---
Today's Communication / Plan
-
discharge
f/u in our office in 1 week for surgical planning
Assessment/Plan
-
Assessment: 67yo male with fungating, ulcerated, partially obstructing colon mass in the ascending colon which was biopsied and tattooed
1.� Plan is for d/c today. He will follow up as an outpatient in the office with Dr. Rocha in 1 week to discuss surgical planning.
2. Will likely have a colectomy prior to his CABG. This was discussed with Dr. Escoto and Dr. Rocha yesterday.
3. Office information given to the patient, office informed he will need a one week appointment.
4. Discussed with hospitalist. Disposition per hospitalist.
Subjective Data
Subjective Data
Date of Service: June 04, 2023
Patient states he feels 'okay'. He denies any bloody bowel movements. He is tolerating a diet. He would like to go home.
Objective Data
-
Vital Signs
Temp Pulse Resp BP Pulse Ox
98 F 78 20 131/70 98
06/04/23 08:06 06/04/23 11:38 06/04/23 08:06 06/04/23 11:38 06/04/23 08:51
Intake & Output
06/03/23 06/04/23 06/05/23
06:59 06:59 06:59
Intake Total 1310 / 1310 970 / 970
Balance 1310 / 1310 970 / 970
Intake:
Oral fluids 1310 / 1310 720 / 720
Blood Product Amount Infused ( 250 / 250
mL)
Packed Rbc Leukoreduced Unit 250 / 250
[id number]
Other:
Number of approximated MODERATE 2
amounts of urine
Number of approximated LARGE 2
amounts of urine
Lab Results
06/04/23 04:11
06/04/23 04:11
Physical Exam
-
General: No Acute Distress and AOx3
Skin: Warm and Dry
--- NOTE | 2023-06-04 12:27 | CM ---
Pricing on Mauroxiga through the patient's PP, [facility], [id number], is $497 for a 90 day and then $40 a month. Patient placed an order online but has not received the prescription. [facility] was able to place an emergency release for a 30 day to the
patients [facility]. I gave the patient a free 30 day coupon.
--- NOTE | 2023-06-04 13:44 | PTCARENOTE ---
Pt seen by Fidel Jaramillo and Gena. Telemetry and IV devices removed. Discharge instructions reviewed with pt and his regarding medications, CHF guidelines, reporting cares and concerns and follow up appt's. Very good understanding
verbalized. Pt escorted out via wheelchair to his car to drive himself home.
== END 2023-06-04 13:00 | disposition home or self-care (01) | DRG 811 ==
LOC: IVU 13:22
PROVIDERS: Clinical Nurse Specialist Family Health; Internal Medicine Gastroenterology; Physician Assistant Medical; ADMITTING PHYSICIAN Hospitalist; ATTENDING PHYSICIAN Hospitalist; CONSULT PHYSICIAN Internal Medicine Gastroenterology; CONSULT PHYSICIAN Thoracic Surgery (Cardiothoracic Vascular Surgery); EMERGENCY PHYSICIAN Emergency Medicine; FAMILY PHYSICIAN Family Medicine; OTHER PHYSICIAN Surgery
PROC: 30233N1 Transfusion of Nonautologous Red Blood Cells into Peripheral Vein, Percutaneous Approach (ICD-10-PCS; 2023-05-28)
PROC: 0DBK8ZX Excision of Ascending Colon, Via Natural or Artificial Opening Endoscopic, Diagnostic (ICD-10-PCS; 2023-06-01)
PROC: 0DBL8ZX Excision of Transverse Colon, Via Natural or Artificial Opening Endoscopic, Diagnostic (ICD-10-PCS; 2023-06-01)
PROC: 0DBN8ZX Excision of Sigmoid Colon, Via Natural or Artificial Opening Endoscopic, Diagnostic (ICD-10-PCS; 2023-06-01)
PROC: 0DJ08ZZ Inspection of Upper Intestinal Tract, Via Natural or Artificial Opening Endoscopic (ICD-10-PCS; 2023-06-01)
DX: D50.9 Iron deficiency anemia, unspecified (principal); I21.4 Non-ST elevation (NSTEMI) myocardial infarction; I25.110 Atherosclerotic heart disease of native coronary artery with unstable angina pectoris; I50.22 Chronic systolic (congestive) heart failure; C18.2 Malignant neoplasm of ascending colon; I5A Non-ischemic myocardial injury (non-traumatic); D68.32 Hemorrhagic disorder due to extrinsic circulating anticoagulants; I11.0 Hypertensive heart disease with heart failure; E11.9 Type 2 diabetes mellitus without complications; K64.0 First degree hemorrhoids; D12.0 Benign neoplasm of cecum; I25.111 Atherosclerotic heart disease of native coronary artery with angina pectoris with documented spasm
CPT/HCPCS: 88305; 71045; 71260; 74018; 74177; 80048; 80053; 80061; 82330; 82378; 82525; 82607; 82728; 82746; 82962; 83540; 83550; 83735; 83880; 84132; 84425; 84484; 85025; 85027; 85045; 85610; 85730; 86850; 86900; 86901; 86920; 88342; 93005; 93306; 97116; 97161; 97166; 99291; J2916; P9016; Q9950; Q9967

== ENCOUNTER 2023-07-03 06:34 | Inpatient (IN) | payer MEDICARE, SELFPAY ==
[2023-06-22 09:01] LABS: Hematocrit 34.9 % (39.0-52.0); Hemoglobin 10.7 g/dL (13.0-18.0); Mean Corp Hgb Conc. 30.7 g/dL (33.0-37.0); Mean Corpuscular Hgb 27.6 pg (27.0-31.0); Mean Corpuscular Volume 89.9 fL (80.0-94.0); Mean Platelet Volume 8.7 fL (7.4-10.4); Platelet Count 409 10^3/uL (130-400); Red Blood Cell Count 3.88 10^6/uL (4.70-6.10); Red Cell Dist. Width 20.3 % (11.5-14.5); White Blood Cell Count 8.1 10^3/uL (4.8-10.8)
[2023-06-22 09:10] LABS: Glycohemoglobin (HgbA1c) 5.4 % (4.0-5.6)
[2023-06-22 09:29] LABS: ALT (SGPT) 25 U/L (0-50); AST (SGOT) 25 U/L (17-59); Albumin 3.8 g/dl (3.5-5.0); Alkaline Phosphatase 86 U/L (38-126); Blood Urea Nitrogen 20 mg/dl (9-20); Calcium 9.5 mg/dl (8.4-10.2); Carbon Dioxide 29 mmol/L (22-30); Chloride 101 mmol/L (98-107); Glucose 89 mg/dl (70-99); Potassium 4.6 mmol/L (3.5-5.1); Sodium 138 mmol/L (135-145); Total Bilirubin 0.5 mg/dl (0.2-1.3); Total Protein 6.6 g/dl (6.3-8.2); eGFR > 60.00
[2023-06-22 15:51] VITALS: BMI 27.0
--- NOTE | 2023-07-02 09:32 | PTCARENOTE ---
Patient and spouse indicated a 'heart anesth' would be required for surgery, also stated no preop anitbiotics where prescribed- Margarita @ Dr. Hoang office notified. Jossy stated Dr. Rocha arranged the anesth. and she would notify surgeon re: preop
anitbiotics, stated she will contact patient as well.
[2023-07-03] VITALS (19 sets, daily range): BP systolic 96–130; BP diastolic 55–84; BMI 27.0
[2023-07-03 11:51] LABS: Glucose - Point of Care 91 mg/dl (70-99)
[2023-07-03] MEDS: NORMOSOL-R 1000 IV ×2 (11:55→21:21)
[2023-07-03] MEDS: CELEBREX 200 MG PO (12:04)
[2023-07-03] MEDS: TYLENOL 1000 MG PO (12:04)
[2023-07-03] MEDS: LYRICA 150 MG PO (12:05)
[2023-07-03] MEDS: HEPARIN 5000 UNITS SC (12:05)
[2023-07-03] MEDS: ENTEREG 12 MG PO (12:05)
--- NOTE | 2023-07-03 18:04 | W.IMMPOSTOP ---
Addendum entered and electronically signed by Patrice Rocha MD 07/13/23 21:10:
Typo: 'JAMI' was intended to be ICA
Addendum entered and electronically signed by Patrice Rocha MD 07/03/23 18:56:
Spoke with , Arleth, and updated her on the operative findings and patient's condition
Original Note:
Surgical Immed Post Op Note
-
Primary Surgeon: Patrice Rocha MD
Assisting Surgeon: LIBERTAD Horton
Pre-op Diagnosis: Ascending colon cancer
Post-op Diagnosis: Ascending colon cancer
Procedure Performed: Robotic right hemicolectomy, adhesiolysis greater than 45 minutes, mesenteric angiography with ICG, partial omentectomy laparoscopic TAP block
Anesthesia Type: General
Specimen / Cultures: Right hemicolon, partial omentum
Estimated Blood Loss: 25 mL
IVF: 1.5 L crystalloid
UOP: 300 mL
Complications: None
Operative Findings: Adhesions from the ascending colon and cecum to the right lower abdominal wall as well as adhesions from the omentum to the cecum; no concerning lesions on the surface of the liver or elsewhere on the peritoneum; after lysing the
adhesions, performed a medial to lateral dissection of the right colon and hepatic flexure; performed high ligation of the JAMI; entered lesser sac and took down the gastrocolic ligament, the hepatocolic ligament and the lateral attachments to the
right colon; transected the terminal ileum 10 cm proximal to the ileocecal valve; assured good perfusion with ICG and then transected the transverse colon at the mid transverse colon and ligated the right branch of the middle colic; performed a
intracorporeal isoperistaltic [id number] stapled ileocolic anastomosis; divided ischemic area of omentum and draped to the remaining omentum over the anastomosis; performed a laparoscopic tap block with 30 cc of Marcaine with dexamethasone and
injected the remaining 30 cc in the incisions; closed in the usual fashion and dressed with Dermabond
Colon Resection
Colon Resection
Operation performed with curative intent: Yes
Tumor Location: Ascending Colon
Right Hemicolectomy: Ileocolic and Right Colic
--- NOTE | 2023-07-03 18:13 | OR.RPT ---
Operative Report
Operative Report
DATE OF OPERATION: 07/03/2023
SURGEON: Patrice Rocha MD
PREOPERATIVE DIAGNOSIS: Ascending colon cancer
POSTOPERATIVE DIAGNOSIS: Same
OPERATION: Robotic right hemicolectomy, adhesiolysis greater than 45 minutes, mesenteric angiography with ICG, partial omentectomy, laparoscopic TAP block
ASSISTANTS:
1. LIBERTAD Horton
ANESTHESIA: Geta
ESTIMATED BLOOD LOSS: 25 mL
FINDINGS:
1. Significant adhesions in the RLQ due to prior open appendectomy; significant inflammatory reaction to the tattoo in the hepatic flexure
2. Tattoo identified at the hepatic flexure; transected at the terminal ileum and mid transverse colon and performed a [id number] isoperistaltic intracorporeal stapled anastomosis
SPECIMENS:
1. Right hemicolon, partial omentum
DRAINS: None
COMPLICATIONS: No immediate complications
INDICATIONS: The patient is a 67-year-old male who was found to have an ascending colon adenocarcinoma after presenting to [facility] for symptomatic anemia. He also has multivessel coronary obstruction awaiting a CABG. Further metastatic workup
was negative. After extensive discussion with cardiac surgery and cardiology, the multidisciplinary decision was to move forward with colectomy prior to CABG. The operation was discussed with the patient in detail, including the risks, benefits and
alternatives. Risks described included, but not limited to, bleeding, infection, anastomotic leak, ureteral injury, bowel or solid organ injury, need for ostomy creation, conversion to open, recurrence of cancer and anesthetic risks, including but
not limited to elevated risk of cardiac complications. The patient understood and agreed to proceed.
PROCEDURE IN DETAIL: The patient was taken to the operating room and placed on the operating table in supine position. Sequential compression devices were placed bilaterally. General anesthesia was then induced and the patient was intubated without
complication. Both arms were tucked with the pressure points padded. Triplett catheter was placed with sterile technique. Anesthesia placed an orogastric tube. Preoperative antibiotics were given. The abdomen was then prepped and draped in a
sterile fashion. A marking pen was used to blair out the midline. A time-out was then performed verifying the correct patient, procedure, operative site, positioning, and special equipment.
At Galeana's point, using an 11 blade scalpel, an 8 mm incision was made. A Veress needle was used to obtain abdominal access. After 3 clicks, insufflation was initiated and the opening pressure was noted to be less than 8 mmHg. The abdomen was
initially insufflated to a pressure of 10, which the patient tolerated well. Therefore, the pressure was increased to 12 without any issues. The 8 mm robotic trocar was then introduced and the robotic endoscope advanced. No injury from initial
Veress placement or port placement was noted. The abdomen was explored. Significant adhesions were noted in the RLQ to the cecum and ascending colon. There were no concerning peritoneal lesions or superficial lesions on the liver. In a diagonal
fashion from the planned Pfannenstiel incision to the Galeana's point incision, 2 more robotic trocars were placed under direct visualization taking care to avoid injury to the epigastric vessels. An assist port was placed in the left lateral
abdomen under direct visualization as well. Then, a 5 cm Pfannenstiel incision was made with a 15 blade scalpel 2 fingerbreadths superior to the pubic symphysis. I took this down to the level of fascia with Bovie electrocautery and hemostasis was
assured. The anterior fascia was then incised with electrocautery and extended to just beyond the length of the Pfannenstiel incision on each side. Using kochers, the anterior fascia was grasped and elevated. The attachments to the rectus muscle
were taken down bluntly and attachments to the midline were taken down with electrocautery. This was done both superiorly and inferiorly to our incision. Then, the midline was split, first with electrocautery on the linea alba then with Kellys to
spread the rectus muscle. The preperitoneal fat was and the peritoneum was grasped and elevated. The peritoneum was divided with Metzenbaum scissors and opened superiorly and inferiorly to the extent that our incision would allow, taking
care to avoid injury to the bladder. A small Roosevelt was placed and a port cap attached. The 12 mm robotic port was placed through the port cap. Using atraumatic graspers, the omentum was brushed cephalad to expose and confirm the tattoo in the
hepatic flexure. Then, the patient was placed in [id number] with slight Trendelenburg. The robot was docked from the patient's right side. From the pfannenstiel to Gaelana's point, the instruments introduced were the bipolar grasper, camera,
scissors and tip up grasper.
Initially, I grasped the cecum to elevate the ileocolic pedicle, but this was hindered due to the RLQ adhesions. Therefore, I performed adhesiolysis to free up the cecum, terminal ileum and right colon. Subsequently, after sweeping the small bowel
towards the pelvis, grasping and elevating the cecum, and retracting the transverse colon with my tip up grasper, the ileocolic pedicle was nicely exposed. A medial to lateral mobilization was performed by first incising the peritoneal lining just
caudad to the pedicle using the robotic scissors. I then elevated the pedicle anteriorly and swept the retroperitoneal structures down bluntly in order to identify the duodenum. Once the duodenum was swept away from the takeoff of the ileocolic
pedicle, I isolated the ileocolic pedicle circumferentially and performed a high ligation using the vessel sealer. I continued my medial to lateral dissection up to the hepatic flexure and then below the right colon and cecum, taking care to avoid
injury to the duodenum, right kidney and right ureter. This dissection was difficult due to the inflammatory reaction of the tattoo as well as the fibrosis around the cecum. I was able to dissect the adhesions of the terminal ileum from the right
pelvic brim, again avoiding injury to retroperitoneal structures.
I turned my attention to the transverse colon. I grasped and elevated the omentum while retracting the transverse colon caudad. I divided the gastrocolic ligament in order to enter the lesser sac. I then carried this dissection around the hepatic
flexure. I continued this dissection by taking down the white line of Toldt to my previous dissection of the terminal ileum. At this point, the entire cecum, right colon and hepatic flexure were nicely mobilized. I selected a point about 10 cm
proximal from the ileocecal valve and elevated this with my tip up grasper. I then retracted the transected ileocolic pedicle on the specimen side and used the vessel sealer to serially ligate the mesentery up to my selected point on the terminal
ileum. I then stapled and divided the terminal ileum with the 60 mm robotic stapler with a blue load.
I grasped the transverse colon and elevated this in order to expose and visualize the mesentery. There was no apparent right colic, but there was a clear right branch of the middle colic. I serially divided the mesentery towards the mid transverse
colon, taking care to avoid injury to the duodenum and pancreas, ligating the right branch of the middle colic as close to its takeoff as possible. I continued this up to the mid-transverse colon. Anesthesia injected ICG and I confirmed adequate
perfusion to my intended transection point. Using the 60 mm robotic stapler with a blue load, I stapled and divided the transverse colon. The specimen was then extracted through the Pfannenstiel incision and passed off. The specimen was examined
on the back table and good margins were noted proximally and distally (greater than 5 cm).
I then examined the bowel for my future anastomosis. I placed the terminal ileum adjacent to the transverse colon. This aligned nicely for a [id number] isoperistaltic anastomosis without any tension. However, the stapler would not reach from
the Pfannenstiel port, so the LUQ port was upsized to a 12 mm robotic port. I measured 7 cm distal from the staple line on the transverse colon and 2 cm proximal from the staple line on the terminal ileum and placed a 2-0 Vicryl stay stitch. I
then placed another stay stitch at the proximal end of the transverse colon near the staple line and 7 cm proximal from the staple line on the terminal ileum. I left the tails long and used my tip up grasper to grasp the tails and elevate the
terminal ileum and transverse colon. In order to align my future staple line appropriately, I used three 2-0 Vicryl stitches juxtaposing the antimesenteric border of the terminal ileum to the antimesenteric border of the transverse colon along the
tinea libera. I then created a colotomy at about 7 cm distal to the staple line on the transverse colon and a enterotomy 2 cm proximal to the staple line on the terminal ileum. I advanced the 60 mm robotic stapler with a white load through the
bowel openings, ensured ideal alignment and fired. After the robotic stapler was withdrawn, no bleeding was noted from the staple line. The common defect was then closed using a 3-0 V-Loc running suture in 2 layers, starting from the superior
aspect and sewing inferiorly in a running baseball fashion, and then back superiorly in a running renard fashion in order to imbricate the first layer.
After the anastomosis was complete, the operative field was examined. There was complete hemostasis, no bowel herniating through the mesenteric defect and good perfusion to our anastomosis without any evidence of tension. The greater omentum was
grasped and evaluated. There was a significant portion that had become ischemic and this was ligated with the vessel sealer and passed off as specimen. The remainder of the omentum was then draped over our anastomosis.
The instruments were removed and the robot was undocked. The fascia of the LUQ port was closed using a Savage Castro device and a 0 Vicryl suture. A tap block was performed under laparoscopic guidance. 15 cc of 0.25% Marcaine with dexamethasone
was injected bilaterally. The ports were then removed under direct visualization and no bleeding was noted. The abdomen was allowed to desufflate. The Pfannenstiel incision was closed in layers. Using an 0 Vicryl stitch, the peritoneum was
closed in a running fashion. The fascia was closed with a Stratafix suture. The incisions were irrigated and then injected with the remaining 30 cc of local. The skin of the incisions were closed with a 4-0 Monocryl in running subcuticular
fashion and dressed with Dermabond.
At this point, the procedure was complete. The patient was awoken and extubated without complication. All needle, sponge and instrument counts were reported as correct. The patient tolerated the procedure well and was transferred to the recovery
room in stable condition with the Triplett in place.
DICTATED BY: Patrice Rocha MD
--- NOTE | 2023-07-03 19:28 | CON.HOSP ---
Family Physician
-
Family Physician: Darell Carver
Chief Complaint
-
consult for post op management
History of Present Illness
67-year-old male past medical history of CAD, HFrEF, hypertension, diabetes, right carotid artery revascularization, hyperlipidemia, smoking history, fungating mass in the proximal ascending colon, anemia, who underwent robotic right hemicolectomy
for ascending colon cancer complicated by symptomatic anemia. No complications intraoperatively.
Patient denies any chest pain or shortness of breath. He feels hungry. Denies any recent rectal bleeding.
He is scheduled to have CABG after recovery from colectomy today. Anesthesiology recommending monitoring in ICU.
He denies alcohol use. He smokes 3 to 4 cigarettes a day.
Medical History
Past Medical History
Past Medical History: Reports Other (CAD, HFrEF, hypertension, diabetes, right carotid artery revascularization, hyperlipidemia, smoking history, fungating mass in the proximal ascending colon, anemia,)
Past Surgical History: Reports Bowel Resection
Social History
Tobacco: Smoker
Alcohol: Former
Drug: None
Family History
Family History: Reviewed & Not Pertinent
Allergies / Home Medications
Allergies reflects when Allergies were last updated in [email or web address].
Home Medications with original date entered in [email or web address]
Allergy/Medication List:
Allergies
Allergy/AdvReac Type Severity Reaction Status Date / Time
No Known Allergies Allergy Verified 07/03/23 11:35
Home Medications
aspirin 81 mg tablet,delayed release 81 mg PO DAILY Blood Clot Prevention/Tx 05/28/23
atorvastatin 80 mg tablet 80 mg PO HS High Cholesterol 05/28/23
nitroglycerin 0.4 mg sublingual tablet 0.4 mg sublingual [id number] PRN chest pain 05/28/23
dapagliflozin propanediol 10 mg tablet (Farxiga) 10 mg PO DAILY Heart disease/condition #30 tabs 06/04/23
folic acid 1 mg tablet 1 mg PO DAILY Supplement #30 tabs 06/04/23
isosorbide mononitrate 30 mg tablet,extended release 24 hr 30 mg PO DAILY Heart disease/condition #0 tabs 06/04/23
metoprolol succinate 25 mg tablet,extended release 24 hr 25 mg PO DAILY Heart Failure #30 tabs 06/04/23
thiamine HCl (vitamin B1) 100 mg tablet 100 mg PO BID Supplement #60 tabs 06/04/23
iron 18 mg tablet 36 mg PO DAILY 07/01/23
metronidazole 500 mg tablet 500 mg PO DIRECTED 07/03/23
neomycin 500 mg tablet 500 mg PO DIRECTED 07/03/23
sodium sul 1.479 gram-potas ch 0.188 gram-magnes sul 0.225 gram tablet (Sutab) tab PO DIRECTED 07/03/23
Review of Systems
-
History Source: Patient
A 12 point Review of Systems was completed except as noted: Yes
Constitutional: Reports No Symptoms
EENT: Reports No Symptoms
Respiratory: Reports No Symptoms
Cardiac: Reports No Symptoms
Abdomen/GI: Reports No Symptoms
: Reports No Symptoms
Musculoskeletal: Reports No Symptoms
Skin: Reports No Symptoms
Neurological: Reports No Symptoms
Endocrine: Reports No Symptoms
Hematologic/Lymphatic: Reports No Symptoms
Psych: Reports No Symptoms
Physical Exam
Vital Signs
Vital Signs
Temp Pulse Resp BP Pulse Ox
98.3 F 82 9 125/70 99
07/03/23 18:10 07/03/23 19:00 07/03/23 19:00 07/03/23 19:00 07/03/23 19:10
Physical Exam
General: Well Developed, Well Nourished and No Apparent Distress
HEENT: Normocephalic, Moist Mucous Membranes and Atraumatic
Respiratory: Clear
Cardiac: S1/S2 and Regular Rhythm; Negative Murmur or Rub
GI: Soft, Non Tender, Non Distended and Normal Bowel Sounds
Rectal: Deferred by Provider
Musculoskeletal: No Clubbing, No Cyanosis and No Edema
Skin: Negative Rash
Neuro: Nonfocal/Grossly Intact
Laboratory Results
-
Laboratory Results
06/22/23 07:41
06/22/23 07:41
PT 13.0 Sec (11.4-14.6) 06/22/23 07:41
INR 1.00 06/22/23 07:41
APTT 39.0 Sec (23.4-35.0) H 06/22/23 07:41
Total Bilirubin 0.5 mg/dl (0.2-1.3) 06/22/23 07:41
AST 25 U/L (17-59) 06/22/23 07:41
ALT 25 U/L (0-50) 06/22/23 07:41
Alkaline Phosphatase 86 U/L (38-126) 06/22/23 07:41
Data Reviewed
-
Lab Data: Labs Reviewed
Old Records: Reviewed
Impression / Plan
-
IMPRESSION:
PLAN:
# Ascending colon malignancy status post right hemicolectomy
-No acute problems intraoperatively
-Postop management per colorectal surgery
-Check BMP
Chronic anemia secondary to blood loss from colon cancer
-Check CBC
Coronary artery disease with plans for CABG after recovery from surgery
-No chest pain or shortness of breath at this time
-Vital signs normal
-Continue aspirin, statin
-Continue isosorbide
-Continue metoprolol
Chronic HFrEF
-Continue dapagliflozin
-no evidence of CHF exacerbation
Essential hypertension
Type 2 diabetes
-Continue dapagliflozin
Right carotid artery revascularization
Hypercholesterolemia
Active smoker
-3 to 4 cigarettes/day
[2023-07-03 19:56] LABS: % Basophils 0.2 % (0-2); % Eosinophils 0.1 % (0-6); % Immature Granulocytes 0.5 % (0-0.5); % Lymphocytes 5.4 % (20.5-51.1); % Neutrophils 92.8 % (42.2-75.2); Absolute Immature Granulocytes 0.1 10^3/uL (0-0.05); Absolute Lymphocytes 0.6 10^3/uL (1.2-3.4); Absolute Monocytes 0.1 10^3/uL (0.1-0.6); Absolute Neutrophils 10.9 10^3/uL (1.4-6.5); Hematocrit 32.3 % (39.0-52.0); Hemoglobin 10.7 g/dL (13.0-18.0); Mean Corp Hgb Conc. 33.1 g/dL (33.0-37.0); Mean Corpuscular Hgb 27.9 pg (27.0-31.0); Mean Corpuscular Volume 84.3 fL (80.0-94.0); Nucleated Red Blood Cells % 0 % (-); Platelet Count 353 10^3/uL (130-400); Red Blood Cell Count 3.83 10^6/uL (4.70-6.10); Red Cell Dist. Width 19.7 % (11.5-14.5); White Blood Cell Count 11.7 10^3/uL (4.8-10.8)
[2023-07-03 20:13] LABS: Blood Urea Nitrogen 16 mg/dl (9-20); Calcium 8.6 mg/dl (8.4-10.2); Carbon Dioxide 23 mmol/L (22-30); Chloride 100 mmol/L (98-107); Estimated Creatinine Clearance 77 ml/min; Glucose 139 mg/dl (70-99); Potassium 4.3 mmol/L (3.5-5.1); Sodium 135 mmol/L (135-145); eGFR > 60.00
--- NOTE | 2023-07-03 22:00 | PTCARENOTE ---
Received pt from PACU @ 2130. pt AOX3. no c/o pain or nausea. VSS on RA BP 110s-120s/60s HR 70s satting 95 percent. NSR on monitor. +pulses all around, - edema. Lungs clear. belly hypoactive, emmanuel present draining clear yellow urine. lap sites
present on abdomen closed with glue KARLA CDI. L forearm, l hand and L radial A line all present and patent. a line zeroed and flushed. pt given water and ice chips sparingly, call retana within reach, resting comfortably.
[2023-07-03] MEDS: TORADOL IV (22:39)
[2023-07-03] MEDS: VITAMIN B1 100 MG PO (22:39)
[2023-07-03] MEDS: LIPITOR 80 MG PO (22:39)
[2023-07-04] VITALS (29 sets, daily range): BP systolic 90–129; BP diastolic 48–80; BMI 27.3
--- NOTE | 2023-07-04 00:15 | PTCARENOTE ---
BP now 80s/30s MAP 50s, pt sleeping. conversation with [employer] - will try PO midodrine for BP before levo
[2023-07-04] MEDS: ProAmatine 5 MG PO (00:32)
[2023-07-04] MEDS: TYLENOL 1000 MG PO ×4 (00:32→18:07)
[2023-07-04] MEDS: TORADOL 15 MG IV ×3 (00:33→22:51)
[2023-07-04] MEDS: LEVOPHED 250 IV (01:46)
--- NOTE | 2023-07-04 01:47 | PTCARENOTE ---
BP 83/33 MAP 50 - levo started at 2 micrograms
--- NOTE | 2023-07-04 04:00 | PTCARENOTE ---
pt assessment remains unchanged, lab work drawn and sent, levo remains on, resting comfortably with call retana within reach
[2023-07-04 04:30] LABS: % Basophils 0.1 % (0-2); % Immature Granulocytes 0.4 % (0-0.5); % Lymphocytes 11.2 % (20.5-51.1); % Monocytes 5.6 % (1.7-9.3); % Neutrophils 82.7 % (42.2-75.2); Absolute Lymphocytes 0.8 10^3/uL (1.2-3.4); Absolute Monocytes 0.4 10^3/uL (0.1-0.6); Absolute Neutrophils 5.7 10^3/uL (1.4-6.5); Hematocrit 31.6 % (39.0-52.0); Hemoglobin 10.3 g/dL (13.0-18.0); Mean Corp Hgb Conc. 32.6 g/dL (33.0-37.0); Mean Corpuscular Hgb 28.1 pg (27.0-31.0); Mean Corpuscular Volume 86.3 fL (80.0-94.0); Mean Platelet Volume 8.6 fL (7.4-10.4); Nucleated Red Blood Cells % 0 % (-); Platelet Count 379 10^3/uL (130-400); Red Blood Cell Count 3.66 10^6/uL (4.70-6.10); Red Cell Dist. Width 19.8 % (11.5-14.5); White Blood Cell Count 6.9 10^3/uL (4.8-10.8)
[2023-07-04 04:46] LABS: Blood Urea Nitrogen 19 mg/dl (9-20); Calcium 8.5 mg/dl (8.4-10.2); Carbon Dioxide 26 mmol/L (22-30); Chloride 101 mmol/L (98-107); Estimated Creatinine Clearance 88 ml/min; Glucose 194 mg/dl (70-99); Magnesium 2.5 mg/dl (1.6-2.3); Potassium 4.7 mmol/L (3.5-5.1); Sodium 134 mmol/L (135-145); eGFR > 60.00
[2023-07-04] MEDS: VITAMIN B1 100 MG PO ×2 (08:13→20:28)
[2023-07-04] MEDS: ASPIR LOW (ENTERIC COATED) 81 MG PO (08:13)
[2023-07-04] MEDS: FOLVITE 1 MG PO (08:13)
[2023-07-04] MEDS: IMDUR (EXTENDED RELEASE) 30 MG PO (08:17)
[2023-07-04 08:25] LABS: Glucose - Point of Care 371 mg/dl (70-99)
[2023-07-04] MEDS: FARXIGA 10 MG PO (08:25)
[2023-07-04] MEDS: ENTEREG 12 MG PO ×2 (08:25→20:28)
[2023-07-04] MEDS: TOPROL XL 25 MG PO (08:38)
--- NOTE | 2023-07-04 09:28 | PTCARENOTE ---
Patient care assumed from nightshift RN. Patient fully alert and oriented. No significant complaint of pain, only mild discomfort at surgical sites. Pt OOB to chair. Arterial line patent and waveform appropriate. Levophed discontinued at change of
shift, BP remains stable since. Current reading 129/61. NSR, rate 60s. Afebrile, temp 98F. Pt on room air, saturations 94%, lungs clear bilaterally. No issues with ambulation. Triplett catheter present and patent, urine clear yellow, 150cc output for
shift thus far. Pt had Bowel movement, soft liquid consistency. Tolerated advanced diet this morning. Bowel sounds active in all quadrants. PIVs patent. Surgical incision sites open to air, well approximated.
--- NOTE | 2023-07-04 10:23 | W.PN.UPDATE ---
Update Note
Progress Note Update
made social rounds with Dr. Escoto, pt looks to be doing well s/p colorectal surgery. Dr. Escoto will see him in the office after his recovery to continue discussions regarding eventual CABG.
[2023-07-04 11:22] LABS: Glucose - Point of Care 131 mg/dl (70-99)
--- NOTE | 2023-07-04 12:08 | W.PN.CRS1 ---
Today's Communication / Plan
-
Ok to transfer out of ICU
Continue diet
Assessment/Plan
-
67yo male with h/o HFrEF, DM and partially obstructing colon mass in the ascending colon now POD #1 Robotic right hemicolectomy
Admitted to ICU overnight as required pressors post operatively. Levophed now off. AFVSS.
Labs stable post op
Tolerating diet with good bowel recovery
--OK to transfer out of ICU
--Continue regular diabetic diet as tolerated
--D/C emmanuel for voiding trial
--OOB/Ambulate
--Fluids as per medical team
--Pain management with multimodal agents
--VTE ppx with lovenox SQ, plan eliquis 2.5mg BID x28 days upon d/c for extended vte ppx
Case discussed with primary hospitalist
Subjective Data
Procedure
07/02/22 Robotic right hemicolectomy, adhesiolysis greater than 45 minutes, mesenteric angiography with ICG, partial omentectomy laparoscopic TAP block
Subjective Data
Date of Service: July 04, 2023
Patient seen and examined at bedside with Dr. Philip. BALDERAS to chair. Has been passing stool/flatus. Eager to have lines/tubes discontinued. Denies n/v. Had pancakes and sausage for breakfast.
Objective Data
-
Vital Signs
Temp Pulse Resp BP Pulse Ox
98 F 65 16 108/80 97
07/04/23 08:00 07/04/23 11:15 07/04/23 11:00 07/04/23 11:00 07/04/23 08:00
Intake & Output
07/03/23 07/04/23 07/05/23
06:59 06:59 06:59
Intake Total 850 / 900 490 / 490
Output Total 1250 / 1300 200 / 200
Balance -400 / -400 290 / 290
Intake:
Oral fluids 400 / 400 240 / 240
IV fluids (Total) 450 / 500 250 / 250
Normosol-R 1,000 ml @ 50 mls/hr 450 / 500 250 / 250
IV .Q20H [facility] Rx#:[id number]
Output:
Urine, Emmanuel 1250 / 1300 200 / 200
Lab Results
07/04/23 04:06
07/04/23 04:06
Physical Exam
-
General: No Acute Distress
Abdomen: Soft, Non Distended and Non Tender
Skin: Warm and Dry
Incision: Clear, Dry, Intact and No Skin Erythema
--- NOTE | 2023-07-04 13:01 | PTCARENOTE ---
Vital signs remain stable. Patient tolerating meals without nausea or further complications. Passing flatus, attempted for a bowel movement. Triplett discontinued, pt voided in bathroom since removal. Arterial line discontinued. Levophed remains off.
Assessment unchanged
[2023-07-04] MEDS: TORADOL IV ×2 (13:14→18:09)
--- NOTE | 2023-07-04 14:21 | W.PN.HOSP.TC ---
Today's Communication/Plan
-
transfer tele; follow primary surgical team recs
Assessment / Plan
Assessment / Plan
Assessment:
Ascending colon malignancy status post right hemicolectomy
- post-op care per surgical service
Chronic anemia secondary to blood loss from colon cancer
- - monitor Hb
CAD
- planned for CABG in future; outpatient CTS follow up
- continue ASA/statin/Isosorbide/BB
Chronic HFrEF
- continue dapagliflozin
- no evidence of CHF exacerbation
Essential hypertension
Type 2 diabetes
- continue dapagliflozin
- SSI
- recent A1c 5.4%
Right carotid artery revascularization
Hypercholesterolemia
Active smoker
- 3 to 4 cigarettes/day
- add Nicotine patch
DVT ppx: Lovenox
Code: Full
Anticipated Discharge: 24 - 48 hours
Subjective/Interval History
-
Date of Service: July 04, 2023
no complaints
off pressors now for 8 hours
Objective Data
-
Labs:
Laboratory Results
07/04/23
04:06
WBC 6.9
Hgb 10.3 L
Hct 31.6 L
Plt Count 379
Sodium 134 L
Potassium 4.7
Chloride 101
Carbon Dioxide 26
BUN 19
Creatinine 0.7
Glucose 194 H
Calcium 8.5
Vital Signs:
Vital Signs
Temp Pulse Resp BP Pulse Ox
97.6 F 69 16 98/64 97
07/04/23 12:00 07/04/23 13:30 07/04/23 12:00 07/04/23 13:07 07/04/23 12:00
I&O
07/03/23 07/04/23 07/05/23
06:59 06:59 06:59
Intake Total 850 / 900 590 / 590
Output Total 1250 / 1300 200 / 200
Balance -400 / -400 390 / 390
Physical Exam
-
General: No Apparent Distress
HEENT: Normocephalic and Atraumatic
Respiratory: Negative Wheezes or Rales
Cardiac: Regular Rhythm and S1/S2
GI: Soft
Genito-urinary: No Costovertebral Tender
Musculoskeletal: No Edema
Neuro: AO x 3
Psych: Calm
Data Reviewed
-
Total Time Spent with Patient (in minutes): 42
Labs: Labs Reviewed by me
[2023-07-04 16:21] LABS: Glucose - Point of Care 131 mg/dl (70-99)
[2023-07-04] MEDS: LIPITOR 80 MG PO (21:33)
[2023-07-04 22:11] LABS: Glucose - Point of Care 129 mg/dl (70-99)
[2023-07-05] VITALS (15 sets, daily range): BP systolic 98–129; BP diastolic 55–66; BMI 27.3; BMI 26.1
[2023-07-05] MEDS: TYLENOL 1000 MG PO ×4 (00:05→17:36)
--- NOTE | 2023-07-05 04:18 | PTCARENOTE ---
Pt post hemicolectomy day 2. pt with one episode of maroon colored watery stool this shift. Pt stated that he had 'bloody diarrhea earlier that day and it was mix of coffee ground and fresh blood'. BP 100/66 HR 77 Pt denies dizziness or
lightheadedness. C/o stomach pain /. [employer] made aware.
[2023-07-05] MEDS: TORADOL IV (06:05)
[2023-07-05 07:12] LABS: Glucose - Point of Care 110 mg/dl (70-99)
[2023-07-05 08:26] LABS: Hematocrit 27.8 % (39.0-52.0); Hemoglobin 8.9 g/dL (13.0-18.0); Mean Corpuscular Hgb 27.6 pg (27.0-31.0); Mean Corpuscular Volume 86.3 fL (80.0-94.0); Mean Platelet Volume 8.7 fL (7.4-10.4); Platelet Count 321 10^3/uL (130-400); Red Blood Cell Count 3.22 10^6/uL (4.70-6.10); White Blood Cell Count 10.6 10^3/uL (4.8-10.8)
--- NOTE | 2023-07-05 08:50 | W.PN.CRS1 ---
Today's Communication / Plan
-
Clear liquids
Hold NSAIDs
Assessment/Plan
-
67yo male with h/o HFrEF, DM and ascending colon ca now POD #2 Robotic right hemicolectomy
Admitted to ICU initially post op as required pressors post operatively, weaned off and now on telemetry
Mild post operative anemia likely d/t expected intraop losses and hemodilution. Mild anastomotic bleeding
Some blood in stool, expected
ABD distention/discomfort today, await full bowel recovery
Voiding s/p removal of emmanuel
AFVSS
--Back diet down to CLD
--OOB/Ambulate
--OR path pending
--Labs in AM
--Medical management as per hospitalist team
--ASA held today given bloody stool
--Pain management with multimodal agents. D/C Toradol given bloody stool
--VTE ppx with lovenox SQ. May need to hold lovenox if bloody stools persist/worsen, tentative plan for eliquis 2.5mg BID x28 days upon d/c for extended vte ppx pending patient course
Subjective Data
Procedure
07/02/22 Robotic right hemicolectomy, adhesiolysis greater than 45 minutes, mesenteric angiography with ICG, partial omentectomy laparoscopic TAP block
Subjective Data
Date of Service: July 05, 2023
Patient seen and examined at bedside with Dr. Keller. Reports sensation of fullness, not feeling as well today as yesterday. Denies n/v. Passed some flatus and a small amount of bloody stool this am.
Objective Data
-
Vital Signs
Temp Pulse Resp BP Pulse Ox
98.3 F 71 14 129/56 97
07/05/23 07:25 07/05/23 07:25 07/05/23 07:25 07/05/23 07:25 07/05/23 07:25
Intake & Output
07/04/23 07/05/23 07/06/23
06:59 06:59 06:59
Intake Total 850 / 900 1170 / 1170
Output Total 1250 / 1300 200 / 200
Balance -400 / -400 970 / 970
Intake:
Oral fluids 400 / 400 720 / 720
IV fluids (Total) 450 / 500 450 / 450
Normosol-R 1,000 ml @ 50 mls/hr 450 / 500 450 / 450
IV .Q20H FRANCOIS Rx#:[id number]
Output:
Urine, Emmanuel 1250 / 1300 200 / 200
Other:
Number of approximated MODERATE 3
amounts of urine
Lab Results
07/05/23 08:08
Physical Exam
-
General: No Acute Distress
Abdomen: Soft, Distended and Non Tender
Skin: Warm and Dry
Incision: Clear, Dry, Intact and No Skin Erythema
[2023-07-05 08:54] LABS: Blood Urea Nitrogen 30 mg/dl (9-20); Carbon Dioxide 26 mmol/L (22-30); Chloride 100 mmol/L (98-107); Estimated Creatinine Clearance 77 ml/min; Glucose 117 mg/dl (70-99); Potassium 4.4 mmol/L (3.5-5.1); Sodium 135 mmol/L (135-145); eGFR > 60.00
[2023-07-05] MEDS: VITAMIN B1 100 MG PO ×2 (08:59→20:13)
[2023-07-05] MEDS: FARXIGA 10 MG PO (08:59)
[2023-07-05] MEDS: FOLVITE 1 MG PO (08:59)
[2023-07-05] MEDS: TOPROL XL 25 MG PO (09:00)
[2023-07-05] MEDS: ASPIR LOW (ENTERIC COATED) PO (09:00)
[2023-07-05] MEDS: IMDUR (EXTENDED RELEASE) 30 MG PO (09:00)
[2023-07-05] MEDS: ENTEREG 12 MG PO ×2 (09:00→20:13)
--- NOTE | 2023-07-05 11:12 | W.PN.HOSP.TC ---
Today's Communication/Plan
-
monitor Hb next at 4pm
continue other current meds
Assessment / Plan
Assessment / Plan
Assessment:
Ascending colon malignancy status post right hemicolectomy
- post-op care per surgical service
- diet downgraded to clears due to distention
Maroon colored stool passage
- Hb 8.9 from 10.3; d/w surgical service, will monitor for now, could be related to post-op from anastomosis site
Chronic anemia secondary to blood loss from colon cancer
- - monitor Hb; next at 4pm
CAD
- planned for CABG in future; outpatient CTS follow up
- statin/Isosorbide/BB
- ASA held for maroon stool passage
Chronic HFrEF
- continue dapagliflozin
- no evidence of CHF exacerbation
Essential hypertension
Type 2 diabetes
- continue dapagliflozin
- SSI
- recent A1c 5.4%
Right carotid artery revascularization
Hypercholesterolemia
Active smoker
- 3 to 4 cigarettes/day
- continue Nicotine patch
DVT ppx: Lovenox - will hold if recurrent maroon stools
Code: Full
Anticipated Discharge: 24 - 48 hours
Subjective/Interval History
-
Date of Service: July 05, 2023
feels full, did not eat much for dinner into today, no n/v.
this AM with small flatus and maroon stool
Objective Data
-
Labs:
Laboratory Results
07/05/23
08:08
WBC 10.6
Hgb 8.9 L
Hct 27.8 L
Plt Count 321
Sodium 135
Potassium 4.4
Chloride 100
Carbon Dioxide 26
BUN 30 H
Creatinine 0.8
Glucose 117 H
Calcium 9.0
Vital Signs:
Vital Signs
Temp Pulse Resp BP Pulse Ox
98.3 F 71 14 129/56 97
07/05/23 07:25 07/05/23 07:25 07/05/23 07:25 07/05/23 09:00 07/05/23 07:25
I&O
07/04/23 07/05/23 07/06/23
06:59 06:59 06:59
Intake Total 850 / 900 1170 / 1170
Output Total 1250 / 1300 200 / 200
Balance -400 / -400 970 / 970
Physical Exam
-
General: No Apparent Distress
HEENT: Normocephalic and Atraumatic
Respiratory: Negative Wheezes or Rales
Cardiac: Regular Rhythm and S1/S2
GI: Nontender and Distended
Genito-urinary: No Costovertebral Tender
Musculoskeletal: No Edema
Neuro: AO x 3
Psych: Calm
Data Reviewed
-
Total Time Spent with Patient (in minutes): 41
Labs: Labs Reviewed by me
[2023-07-05 11:33] LABS: Glucose - Point of Care 101 mg/dl (70-99)
--- NOTE | 2023-07-05 15:11 | CM ---
CM met with pt bedside
Pt resides with his spouse in a [place] with [place]
Pt notes independence with his ADLs
He denies use of DMEs
He works full-time as a [employer]
PCP- Darell Carver
Rx- [facility]
Pt notes independence in hallway
No dc needs anticipated
Discharge Disposition- home, no needs anticipated
[2023-07-05 16:37] LABS: Hematocrit 26.3 % (39.0-52.0); Hemoglobin 8.5 g/dL (13.0-18.0)
[2023-07-05 16:40] LABS: Glucose - Point of Care 108 mg/dl (70-99)
--- NOTE | 2023-07-05 17:05 | W.PN.UPDATE ---
Update Note
Progress Note Update
repeat Hb 8.5. D/w surgical service 1 unit PRBCs ordered. Given known EF of 25%, will give 20mg IV Lasix.
--- NOTE | 2023-07-05 17:22 | PTCARENOTE ---
Addendum entered by Mi Gruber RN 07/05/23 17:33:
order updated. pt to receive 2units of blood. first unit to be started for this nurse on this shift.
Original Note:
this pts hgb was obtained this afternoon after pt reported bloody stools. pt hgb currently sitting at 8.6 1 unit of PRBC was ordered. Pt specific orders to transfuse if hgb is less than 10. OTD of lasix 20mg IV ordered prior to transfusion as well
per . lovenox on hold at this time. See MAR for proper documentation. pt did not meet parameters this evening for sliding scale coverage with his dinner. consent for blood in pt electronic chart.
--- NOTE | 2023-07-05 17:23 | W.PN.UPDATE ---
Update Note
Progress Note Update
S: Repeat labs done, hgb of 8.5.
B: Discussed case with primary surgeon; during preop evaluations, cardiology recommended transfusion if hgb less than 10.
A: Patient has just passed another large bloody BM. Agreeable to receiving blood.
R: Will transfuse two units of blood (consent in chart) and check repeat CBC in AM. Hold chemical VTE ppx given bloody stools. SCD's while in bed, patient has been OOB to chair for the majority of the day, ambulating. Discussed with hospitalist,
will plan lasix with transfusion. Discussed with patient's primary RN.
[2023-07-05] MEDS: LASIX 20 MG IV (17:35)
--- NOTE | 2023-07-05 17:50 | PTCARENOTE ---
pt in 2135 O positive blood transfusion started at 1745. VS obtained. BP 118/66, RR 16, HR 87 and axillary temperature 97.2. Pt oob to the chair for transfusion and transfusion is going through the patients 18 gauge in his L hand. pt continued on
clear liquid diet at this time.
--- NOTE | 2023-07-05 20:24 | W.PN.UPDATE ---
Update Note
Progress Note Update
late entry: 07/05/23 0600
RN notified [employer], patient stated he had coffee ground and fresh blood stool earlier today, but nursing unusre as patient is not giving straight answers. Patient is stable with stable VS, advised nursing to notify [employer] if witnessed blood in stool so we
can check labs and treat.
[2023-07-05 21:25] LABS: Glucose - Point of Care 84 mg/dl (70-99)
[2023-07-05] MEDS: LIPITOR 80 MG PO (22:01)
--- NOTE | 2023-07-05 23:49 | PTCARENOTE ---
Addendum entered by Reinier Mcelroy RN 07/06/23 02:25:
Spoke with DAYAN about additional order of packed RBCs. 2 units was the order today and 2 units of O positive packed RBCs given.
Original Note:
Started O positive blood transfusion at 20:32. Patients vital signs stable. Finished blood transfusion at 22:53. Patients vital signs stable. Patient resting in bed.
[2023-07-06] MEDS: TYLENOL 1000 MG PO ×4 (00:27→17:12)
[2023-07-06 03:50] VITALS: BP 113/59
[2023-07-06 04:53] LABS: Hematocrit 31.2 % (39.0-52.0); Mean Corp Hgb Conc. 33.3 g/dL (33.0-37.0); Mean Corpuscular Hgb 28.3 pg (27.0-31.0); Mean Platelet Volume 8.3 fL (7.4-10.4); Platelet Count 311 10^3/uL (130-400); Red Blood Cell Count 3.67 10^6/uL (4.70-6.10); Red Cell Dist. Width 19.1 % (11.5-14.5); White Blood Cell Count 7.9 10^3/uL (4.8-10.8)
[2023-07-06 04:57] VITALS: BMI 25.5
[2023-07-06 04:58] LABS: Hemoglobin 10.4 g/dL (13.0-18.0)
[2023-07-06 05:21] LABS: Blood Urea Nitrogen 16 mg/dl (9-20); Calcium 8.8 mg/dl (8.4-10.2); Carbon Dioxide 29 mmol/L (22-30); Chloride 103 mmol/L (98-107); Estimated Creatinine Clearance 88 ml/min; Glucose 84 mg/dl (70-99); Sodium 136 mmol/L (135-145); eGFR > 60.00
[2023-07-06 07:11] VITALS: BP 120/74
[2023-07-06 07:43] LABS: Glucose - Point of Care 101 mg/dl (70-99)
[2023-07-06] MEDS: IMDUR (EXTENDED RELEASE) 30 MG PO (08:39)
[2023-07-06] MEDS: ENTEREG 12 MG PO ×2 (08:39→20:48)
[2023-07-06] MEDS: FOLVITE 1 MG PO (08:39)
[2023-07-06] MEDS: TOPROL XL 25 MG PO (08:39)
[2023-07-06] MEDS: VITAMIN B1 100 MG PO ×2 (08:39→20:48)
[2023-07-06] MEDS: FARXIGA 10 MG PO (08:39)
--- NOTE | 2023-07-06 08:39 | W.PN.CRS1 ---
Today's Communication / Plan
-
Advance to full liquids.
Continue to hold ASA, Toradol and Lovenox today due to recent bleeding.
Follow Hgb.
Continue ambulation/SCD's for DVT prophylaxis.
Assessment/Plan
-
POD#3 s/p robotic right colectomy for cancer
He received 2 units of PRBC and the bleeding seems to have stopped.
Subjective Data
Procedure
07/02/22 Robotic right hemicolectomy, adhesiolysis greater than 45 minutes, mesenteric angiography with ICG, partial omentectomy laparoscopic TAP block
Subjective Data
Date of Service: July 06, 2023
His abdominal pain and distention are improved and he denies any nausea. He is tolerating clears but is still not very hungry. He was having some bloody bowel movements for the last time there was just some 'coffee grounds'.
Objective Data
-
Vital Signs
Temp Pulse Resp BP Pulse Ox
98.1 F 70 16 120/74 97
07/06/23 07:11 07/06/23 07:11 07/06/23 07:11 07/06/23 07:11 07/06/23 07:11
Intake & Output
07/05/23 07/06/23 07/07/23
06:59 06:59 06:59
Intake Total 1170 / 1170 3220 / 3220
Output Total 200 / 200
Balance 970 / 970 3220 / 3220
Intake:
Oral fluids 720 / 720 2220 / 2220
IV fluids (Total) 450 / 450
Normosol-R 1,000 ml @ 50 mls/hr 450 / 450
IV .Q20H FRANCOIS Rx#:[id number]
Blood products 500 / 500
Blood Product Amount Infused ( 500 / 500
mL)
Packed Rbc Leukoreduced Unit 250 / 250
[id number]
Packed Rbc Leukoreduced Unit 250 / 250
[id number]
Output:
Urine, Triplett 200 / 200
Other:
Number of approximated SMALL 1
amounts of urine
Number of approximated MODERATE 3 3
amounts of urine
Lab Results
07/06/23 04:16
07/06/23 04:16
Physical Exam
-
General: No Acute Distress
Abdomen: Soft, Non Distended and Non Tender
Extremities: No Calf Tenderness
--- NOTE | 2023-07-06 09:45 | W.PN.HOSP.TC ---
Today's Communication/Plan
-
.
Assessment / Plan
Assessment / Plan
Physical Exam
-
General: No Apparent Distress
HEENT: Normocephalic and Atraumatic
Respiratory: Negative Wheezes or Rales
Cardiac: Regular Rhythm and S1/S2
GI: Soft and Nontender
Genito-urinary: No Costovertebral Tender
Musculoskeletal: No Edema
Neuro: AO x 3, followed commands.
Psych: Calm, no agitation.
Assessment:
Ascending colon malignancy status post right hemicolectomy
- post-op care per surgical service
Tolerated clears, to advance to full liquids.
# Post op ileus, resolving
Advance diet slowly
# Acute blood loss anemia on Chronic blood loss from colon cancer
Maroon colored stool passage , sometimes expected after colon surgery. No recurrent rectal bleeding.
f/w HGB reading,
s/p blood transfusion 2 units total.
#CAD
No chest pains
- planned for CABG in future; outpatient CTS follow up
- statin/Isosorbide/BB
- ASA held for maroon stool passage
#Chronic HFrEF
- continue dapagliflozin
- no evidence of CHF exacerbation
#Essential hypertension
#Type 2 diabetes
- continue dapagliflozin
- SSI
- recent A1c 5.4%
#Right carotid artery revascularization
# Hyponatremia, resolved.
#Hypercholesterolemia
#Active smoker
- 3 to 4 cigarettes/day
- continue Nicotine patch
#DVT ppx: Lovenox - will hold if recurrent maroon stools
Code: Full
Total time spent to see the patient, examine the patient on the floor, review data and lab results, discuss treatment plan with patient, nursing staff around 55 minutes
Anticipated Discharge: > 48 hours
Subjective/Interval History
-
Date of Service: July 06, 2023
No chest pain
No abd pain
No rectal bleeding
Objective Data
-
Labs:
Laboratory Results
07/06/23
04:16
WBC 7.9
Hgb 10.4 L D
Hct 31.2 L
Plt Count 311
Sodium 136
Potassium 4.0
Chloride 103
Carbon Dioxide 29
BUN 16
Creatinine 0.7
Glucose 84
Calcium 8.8
Vital Signs:
Vital Signs
Temp Pulse Resp BP Pulse Ox
98.1 F 70 16 120/74 97
07/06/23 07:11 07/06/23 07:11 07/06/23 07:11 07/06/23 08:39 07/06/23 07:11
I&O
07/05/23 07/06/23 07/07/23
06:59 06:59 06:59
Intake Total 1170 / 1170 3220 / 3220
Output Total 200 / 200
Balance 970 / 970 3220 / 3220
--- NOTE | 2023-07-06 10:29 | PTCARENOTE ---
per colorectal pt upgraded to full liquid diet. hgb this morning after last nights transfusion was 10.4 pt is oob to the chair and is a self in the room.
[2023-07-06 11:10] VITALS: BP 109/61
[2023-07-06 11:35] LABS: Glucose - Point of Care 92 mg/dl (70-99)
[2023-07-06 15:09] VITALS: BP 117/69
--- NOTE | 2023-07-06 15:29 | CM ---
Reviewed the chart notes and spoke with the patient at the bedside. Patient tolerating full liquid diet today. Patient anticipates being discharged to home tomorrow as long as he will be able to tolerate a low residual diet. Patient ambulating in
hallways without assistance. CM continues to be available to patient/family and is monitoring medical plan for needs at discharge.
Plan: Discharge to home when medically stable. No needs anticipated.
[2023-07-06 16:19] LABS: Glucose - Point of Care 97 mg/dl (70-99)
[2023-07-06 22:39] LABS: Glucose - Point of Care 99 mg/dl (70-99)
[2023-07-06] MEDS: LIPITOR 80 MG PO (22:41)
[2023-07-06 23:36] VITALS: BP 108/63
[2023-07-07] MEDS: TYLENOL 1000 MG PO ×3 (00:08→13:51)
[2023-07-07 05:00] VITALS: BMI 25.3
[2023-07-07 06:28] LABS: Hematocrit 33.6 % (39.0-52.0); Hemoglobin 10.8 g/dL (13.0-18.0); Mean Corp Hgb Conc. 32.1 g/dL (33.0-37.0); Mean Corpuscular Hgb 27.8 pg (27.0-31.0); Mean Corpuscular Volume 86.6 fL (80.0-94.0); Mean Platelet Volume 8.9 fL (7.4-10.4); Platelet Count 351 10^3/uL (130-400); Red Blood Cell Count 3.88 10^6/uL (4.70-6.10); Red Cell Dist. Width 18.6 % (11.5-14.5); White Blood Cell Count 7.6 10^3/uL (4.8-10.8)
[2023-07-07 07:03] VITALS: BP 115/69
[2023-07-07 08:02] LABS: Glucose - Point of Care 123 mg/dl (70-99)
--- NOTE | 2023-07-07 09:37 | W.PN.CRS1 ---
Today's Communication / Plan
-
Low residue diet.
Discharge this evening versus tomorrow.
Assessment/Plan
-
POD 4.
1. Tolerating fulls with bowel function. Advance to low residue.
2. White count normal at 7.6. Hemoglobin stable at 10.8. Vital stable.
3. Potential for discharge this evening versus tomorrow.
Subjective Data
Procedure
07/02/22 Robotic right hemicolectomy, adhesiolysis greater than 45 minutes, mesenteric angiography with ICG, partial omentectomy laparoscopic TAP block
Subjective Data
Date of Service: July 07, 2023
Tolerated fulls. No nausea. Had a BM.
Objective Data
-
Vital Signs
Temp Pulse Resp BP Pulse Ox
97.8 F 73 16 115/69 97
07/07/23 07:03 07/07/23 07:03 07/07/23 07:03 07/07/23 07:03 07/07/23 07:03
Intake & Output
07/06/23 07/07/23 07/08/23
06:59 06:59 06:59
Intake Total 3220 / 3220 1919 / 0
Balance 3220 / 3220 1919 / 1919
Intake:
Oral fluids 2220 / 2220 1919
Blood products 500 / 500
Blood Product Amount Infused ( 500 / 500
mL)
Packed Rbc Leukoreduced Unit 250 / 250
[id number]
Packed Rbc Leukoreduced Unit 250 / 250
[id number]
Other:
Number of approximated SMALL 1
amounts of urine
Number of approximated MODERATE 3 3
amounts of urine
Lab Results
07/07/23 05:22
07/06/23 04:16
Physical Exam
-
General: No Acute Distress
Chest: Clear
Cardiovascular: Regular Rate & Rhythm
Abdomen: Distended (Moderate) and Tender (Incisional)
Incision: Clear, Dry, Intact and No Skin Erythema
[2023-07-07] MEDS: VITAMIN B1 100 MG PO (10:08)
[2023-07-07] MEDS: IMDUR (EXTENDED RELEASE) 30 MG PO (10:08)
[2023-07-07] MEDS: FARXIGA 10 MG PO (10:08)
[2023-07-07] MEDS: FOLVITE 1 MG PO (10:08)
[2023-07-07] MEDS: TOPROL XL 25 MG PO (10:08)
[2023-07-07] MEDS: ENTEREG 12 MG PO (10:08)
--- NOTE | 2023-07-07 10:26 | W.PN.HOSP.TC ---
Today's Communication/Plan
-
.
Assessment / Plan
Assessment / Plan
Physical Exam
-
General: No Apparent Distress
HEENT: Normocephalic and Atraumatic
Respiratory: Negative Wheezes or Rales
Cardiac: Regular Rhythm and S1/S2
GI: Soft and Nontender
Genito-urinary: No Costovertebral Tender
Musculoskeletal: No Edema
Neuro: AO x 3, followed commands.
Psych: Calm, no agitation.
Assessment:
Ascending colon malignancy status post right hemicolectomy
- post-op care per surgical service
Tolerated clears, to advance to low residue diet
# Post op ileus, resolving
Advanced diet slowly
# Acute blood loss anemia on Chronic blood loss from colon cancer
Maroon colored stool passage , sometimes expected after colon surgery. No recurrent rectal bleeding.
f/w HGB reading,
s/p blood transfusion 2 units total.
#CAD
No chest pains
- planned for CABG in future; outpatient CTS follow up
- statin/Isosorbide/BB
- ASA held for maroon stool passage
#Chronic HFrEF
- continue dapagliflozin
- no evidence of CHF exacerbation
#Essential hypertension
#Type 2 diabetes
- continue dapagliflozin
- SSI
- recent A1c 5.4%
#Right carotid artery revascularization
# Hyponatremia, resolved.
#Hypercholesterolemia
#Active smoker
- 3 to 4 cigarettes/day
- continue Nicotine patch
#DVT ppx: Lovenox - will hold if recurrent maroon stools
Code: Full
Total time spent to see the patient, examine the patient on the floor, review data and lab results, discuss treatment plan with patient, nursing staff around 45 minutes
Anticipated Discharge: Within 24 hours
Subjective/Interval History
-
Date of Service: July 07, 2023
No chest pain
No abd pain
tolerated full liquids
Objective Data
-
Labs:
Laboratory Results
07/07/23
05:22
WBC 7.6
Hgb 10.8 L
Hct 33.6 L
Plt Count 351
Vital Signs:
Vital Signs
Temp Pulse Resp BP Pulse Ox
97.8 F 73 16 115/69 97
07/07/23 07:03 07/07/23 07:03 07/07/23 07:03 07/07/23 07:03 07/07/23 07:03
I&O
07/06/23 07/07/23 07/08/23
06:59 06:59 06:59
Intake Total 3220 / 3220 1919
Balance 3220 / 3220 1919
--- NOTE | 2023-07-07 11:00 | CM ---
Reviewed the chart notes and spoke with the patient at the bedside. IMM signed and placed on the chart. The patient's diet is advanced to low residual and he is tolerating it. Potential discharge later today to home with no needs anticipated. CM
continues to be available to patient/family and is monitoring medical plan for needs at discharge.
Plan: Discharge to home when medically stable. No needs identified.
[2023-07-07 11:46] LABS: Glucose - Point of Care 181 mg/dl (70-99)
--- NOTE | 2023-07-07 15:42 | W.PN.UPDATE ---
Update Note
Progress Note Update
Patient doing well with wounds. He wishes to be discharged which is reasonable. Will arrange.
--- NOTE | 2023-07-07 15:46 | W.DS.TRANS ---
DC Summary - [employer]
-
Discharge Instructions:
Sleep Apnea Risk Low
Discharge Diagnosis/Procedures ascending colon cancer status post right
hemicolectomy
Diet Low Fiber
Activity No strenuous activity
Additional Activity Do not lift more than 10 lbs (gallon of milk)
Driving Restrictions No driving for 1 week
Bathing Restrictions OK to Shower
Wound Care The glue over your incisions will flake off on
its own in 2-3 weeks. Avoid picking or scrubbing
off the glue.
Instructions:
Stand-Alone Forms:
Changes to Home Medications: No
Discharge Medications:
DC Medications w/original date entered in [facility]
aspirin 81 mg tablet,delayed release 81 mg PO DAILY Blood Clot Prevention/Tx 05/28/23
atorvastatin 80 mg tablet 80 mg PO HS High Cholesterol 05/28/23
nitroglycerin 0.4 mg sublingual tablet 0.4 mg sublingual [id number] PRN chest pain 05/28/23
dapagliflozin propanediol 10 mg tablet (Farxiga) 10 mg PO DAILY Heart disease/condition #30 tabs 06/04/23
folic acid 1 mg tablet 1 mg PO DAILY Supplement #30 tabs 06/04/23
isosorbide mononitrate 30 mg tablet,extended release 24 hr 30 mg PO DAILY Heart disease/condition #0 tabs 06/04/23
metoprolol succinate 25 mg tablet,extended release 24 hr 25 mg PO DAILY Heart Failure #30 tabs 06/04/23
thiamine HCl (vitamin B1) 100 mg tablet 100 mg PO BID Supplement #60 tabs 06/04/23
iron 18 mg tablet 36 mg PO DAILY 07/01/23
nicotine 14 mg/24 hr daily transdermal patch 14 mg transdermal DAILY #28 ea 07/07/23
Home Medication Changes
Pending Results: Yes (OR pathology)
--- NOTE | 2023-07-07 16:11 | PTCARENOTE ---
Pt's in to visit during shift and observed to be agitated when Pt was administered his Tylenol after the scheduled time of noon. Pt stated that he was not in pain, but agreed to take the Tylenol. Pt refused his 1 unit of Insulin at this time.
CM stated that Pt is home with no needs, CM communicated with physicians about Pt being discharged. Physician per CM stated that 'Pt will be discharged later in the shift'. left then later came back to visit and was observed at nurses station
asking about when Pt would be discharged. Discharge papers printed out and discussed with Pt and , second RN present in room at this time. interrupted throughout discharge education/instructions. Pt's IV access removed and transport called
for wheelchair to exit. asked to speak to banking supervisor, who came to unit to speak with and Pt. Physician called regarding of Pt leaving him a voicemail stating she is refusing discharge, wants more blood work, and complaints about
nursing staff. Physician was informed that the banking supervisor is present on the floor speaking to Pt and , and that both the and the Pt did not make comments about refusing discharge or more blood work, that in fact they wanted to leave as soon
as possible. Pt is alert and oriented and stated wanting to go home. Wheelchair transport wheeled Pt to exit.
== END 2023-07-07 16:18 | disposition home or self-care (01) | DRG 330 ==
LOC: 2 NORTH 06:34
PROVIDERS: Internal Medicine; Surgery; ADMITTING PHYSICIAN Surgery; FAMILY PHYSICIAN Family Medicine; OTHER PHYSICIAN Hospitalist
PROC: 0DNB4ZZ Release Ileum, Percutaneous Endoscopic Approach (ICD-10-PCS; 2023-07-03)
PROC: 0DBU4ZZ Excision of Omentum, Percutaneous Endoscopic Approach (ICD-10-PCS; 2023-07-03)
PROC: 8E0W4CZ Robotic Assisted Procedure of Trunk Region, Percutaneous Endoscopic Approach (ICD-10-PCS; 2023-07-03)
PROC: 0DTK4ZZ Resection of Ascending Colon, Percutaneous Endoscopic Approach (ICD-10-PCS; 2023-07-03)
PROC: 0DNH4ZZ Release Cecum, Percutaneous Endoscopic Approach (ICD-10-PCS; 2023-07-03)
PROC: 0DNF4ZZ Release Right Large Intestine, Percutaneous Endoscopic Approach (ICD-10-PCS; 2023-07-03)
DX: C18.2 Malignant neoplasm of ascending colon (principal); I50.22 Chronic systolic (congestive) heart failure; F17.210 Nicotine dependence, cigarettes, uncomplicated; D50.0 Iron deficiency anemia secondary to blood loss (chronic); I11.0 Hypertensive heart disease with heart failure; Z79.82 Long term (current) use of aspirin; E11.9 Type 2 diabetes mellitus without complications; E78.00 Pure hypercholesterolemia, unspecified
CPT/HCPCS: 88307; 88309; 36415; 80048; 80053; 82962; 83036; 83735; 85014; 85018; 85025; 85027; 85610; 85730; 86850; 86900; 86901; 86920; 87045; 87046; 87324; 87427; 87449; 88342; 89055; J2260; P9016; P9045

== ENCOUNTER → 2023-07-30 09:48 | Outpatient (REF) | payer MEDICARE, SELFPAY ==
[2023-07-30 11:14] LABS: % Basophils 0.7 % (0-2); % Eosinophils 2.8 % (0-6); % Immature Granulocytes 0.2 % (0-0.5); % Lymphocytes 36.6 % (20.5-51.1); % Monocytes 8.7 % (1.7-9.3); Absolute Eosinophils 0.2 10^3/uL (0-0.7); Absolute Lymphocytes 2.2 10^3/uL (1.2-3.4); Absolute Monocytes 0.5 10^3/uL (0.1-0.6); Absolute Neutrophils 3.1 10^3/uL (1.4-6.5); Hemoglobin 12.2 g/dL (13.0-18.0); Mean Corp Hgb Conc. 31.3 g/dL (33.0-37.0); Mean Corpuscular Hgb 27.7 pg (27.0-31.0); Mean Corpuscular Volume 88.4 fL (80.0-94.0); Nucleated Red Blood Cells % 0 % (-); Platelet Count 319 10^3/uL (130-400); Red Blood Cell Count 4.41 10^6/uL (4.70-6.10); Red Cell Dist. Width 17.9 % (11.5-14.5)
[2023-07-30 11:32] LABS: Iron 95 ug/dl (49-181)
[2023-07-30 11:41] LABS: Percent Saturation 21 % (20-50); Total Iron Binding Capacity 452 ug/dl (261-462)
[2023-07-30 12:02] LABS: CEA 4.17 ng/ml
[2023-07-30 12:03] LABS: Ferritin 45.4 ng/ml (17.9-464.0)
[2023-07-30 12:35] LABS: Folate > 20.0 ng/ml (2.76-20); Vitamin B12 574 pg/ml (239-931)
== END ==
LOC: REG 09:48
PROVIDERS: ATTENDING PHYSICIAN Internal Medicine Hematology & Oncology; FAMILY PHYSICIAN Family Medicine
DX: C18.2 Malignant neoplasm of ascending colon (principal); D51.9 Vitamin B12 deficiency anemia, unspecified
CPT/HCPCS: 36415; 82378; 82607; 82728; 82746; 83540; 83550; 85025

== ENCOUNTER 2023-08-07 06:25 | Day surgery (SDC) | payer MEDICARE, SELFPAY ==
[2023-08-07 11:04] VITALS: BMI 26.3
[2023-08-07 11:05] VITALS: BMI 26.3
[2023-08-07 11:06] VITALS: BP 112/62
[2023-08-07] MEDS: TYLENOL 1000 MG PO (11:32)
[2023-08-07] MEDS: NORMOSOL-R 1000 IV (11:32)
[2023-08-07] MEDS: CELEBREX 200 MG PO (11:32)
[2023-08-07 11:34] LABS: Glucose - Point of Care 90 mg/dl (70-99)
[2023-08-07 16:19] VITALS: BP 106/70
--- NOTE | 2023-08-07 16:21 | OR.RPT ---
Operative Report
Operative Report
DATE OF OPERATION: 08/07/2023
SURGEON: Patrice Rocha MD
PREOPERATIVE DIAGNOSIS: Stage III colon cancer
POSTOPERATIVE DIAGNOSIS: Stage III colon cancer
OPERATION: Left subclavian Mediport insertion
ASSISTANTS:
1. None
ANESTHESIA: MAC w/ local
ESTIMATED BLOOD LOSS: 10 mL
FINDINGS:
1. After placement, the tip of port catheter visualized at level of the cavoatrial junction on fluoroscopy, just below the level of the jacquelyn
2. Once sutured in position, port tested with Street needle and there was good withdrawal of blood and instillation of heparinized saline without resistance
SPECIMENS: None
DRAINS: None
COMPLICATIONS: No immediate complications.
INDICATIONS: The patient is a 67-year-old male with stage III colon cancer. Infusional chemotherapy was recommended. Therefore, I recommended port placement. The operation was discussed with the patient in detail including risks and benefits.
Risks discussed included, but are not limited to, bleeding, infection, hemothorax, pneumothorax, postoperative malposition or movement of catheter, and anesthetic risks. The patient understood and agreed to proceed. The consent was signed and placed
in the chart.
PROCEDURE: Patient was taken to the operating room and placed on the operating table in supine position. Sequential compression devices were placed bilaterally. Sedation was commenced without complication. Bilateral arms were tucked and the head
tilted toward the right. The left neck and chest wall area were shaved and prepped and draped in a sterile fashion. A time-out was then performed verifying the correct patient, procedure, operative site, positioning, and special equipment.
The patient was then placed in Trendelenburg position. Local anesthetic consisting of lidocaine 1% with epinephrine was used to numb the skin and soft tissue near the angle of the left clavicle and the planned subcutaneous port pocket. Then using
bony landmarks as a guide, I passed the needle with 10mL syringe under the left collar bone in the direction of the sternal notch while simultaneously aspirating. On the first pass, good venous return was noted indicating that I had accessed the
left subclavian vein. Under fluoroscopic guidance a guidewire was passed through the needle into the patient down to the superior vena cava. This went smoothly.
The needle was removed over the guidewire and a skin opening was enlarged with an 11 blade scalpel. Next, I advanced the dilator and peel-away sheath together over the guidewire into the patient. This went smoothly as well. Next, the guidewire and
inner dilator were removed leaving the outer sheath in place. I advanced the white tubing through the outer sheath into the patient under fluoroscopic guidance to the superior vena cava near the right atrium. Next, the outer sheath was peeled away
while maintaining the white tubing in place.
Using a 15 blade scalpel, I made a 4cm incision over the chest wall near the white tubing exit site. A subcutaneous pocket was created inferiorly to the incision with a combination of Bovie electrocautery and blunt dissection. There was good
hemostasis. The white tubing was connected to the tunneling device and brought through a newly created tunnel to the pocket area, taking care to avoid kinking of the tube. The white tubing was trimmed, connected to the the port reservoir and secured
with the locking mechanism. The port reservoir was accessed with good venous return and flushed with heparinized saline. One last round of fluoroscopy was performed. The tip of the white tubing was at the level of the superior vena cava and there
was no kink in the tubing.
The reservoir was then secured to the chest wall within the pocket with two 3-0 Prolene stitches. The subcutaneous layer was closed with deep dermal interrupted 3-0 Vicryl and the skin was closed with a running subcuticular 4-0 Vicryl. The remaining
local was injected around the subcutaneous pocket, port incision and stab incision. Dermabond was used to dress the port incision and stab incision.
At this point, the procedure was complete. All sponge, needle and instrument counts were correct. The patient tolerated the procedure well and was transferred to the recovery room in stable condition. A portable chest x-ray was ordered in recovery
to confirm port position and rule-out pneumothorax.
DICTATED BY: Patrice Rocha MD
[2023-08-07 16:35] VITALS: BP 107/59
[2023-08-07 16:45] VITALS: BP 101/51
== END 2023-08-07 17:35 | disposition home or self-care (01) ==
LOC: SDS 06:25
PROVIDERS: ATTENDING PHYSICIAN Surgery
DX: C18.2 Malignant neoplasm of ascending colon (principal)
CPT/HCPCS: 36561; 71045; 76000; 82962; C1788

== ENCOUNTER → 2023-08-17 09:05 | Outpatient (REF) | payer MEDICARE, SELFPAY ==
[2023-08-17 10:06] LABS: % Basophils 0.8 % (0-2); % Eosinophils 4.2 % (0-6); % Immature Granulocytes 0.2 % (0-0.5); % Lymphocytes 31.7 % (20.5-51.1); % Monocytes 8.5 % (1.7-9.3); % Neutrophils 54.6 % (42.2-75.2); Absolute Basophils 0.1 10^3/uL (0-0.2); Absolute Eosinophils 0.3 10^3/uL (0-0.7); Absolute Lymphocytes 1.9 10^3/uL (1.2-3.4); Absolute Monocytes 0.5 10^3/uL (0.1-0.6); Absolute Neutrophils 3.3 10^3/uL (1.4-6.5); Hematocrit 36.4 % (39.0-52.0); Hemoglobin 11.6 g/dL (13.0-18.0); Mean Corp Hgb Conc. 31.9 g/dL (33.0-37.0); Mean Corpuscular Hgb 28.4 pg (27.0-31.0); Mean Platelet Volume 8.6 fL (7.4-10.4); Nucleated Red Blood Cells % 0 % (-); Platelet Count 283 10^3/uL (130-400); Red Blood Cell Count 4.09 10^6/uL (4.70-6.10); Red Cell Dist. Width 17.7 % (11.5-14.5)
[2023-08-17 10:17] LABS: ALT (SGPT) 27 U/L (0-50); AST (SGOT) 26 U/L (17-59); Albumin 4.8 g/dl (3.5-5.0); Alkaline Phosphatase 78 U/L (38-126); Blood Urea Nitrogen 17 mg/dl (9-20); Calcium 9.8 mg/dl (8.4-10.2); Carbon Dioxide 25 mmol/L (22-30); Chloride 104 mmol/L (98-107); Glucose 95 mg/dl (70-99); Potassium 4.2 mmol/L (3.5-5.1); Sodium 137 mmol/L (135-145); Total Bilirubin 0.3 mg/dl (0.2-1.3); Total Protein 7.2 g/dl (6.3-8.2); eGFR > 60.00
== END ==
LOC: REG 09:05
PROVIDERS: ATTENDING PHYSICIAN Internal Medicine Hematology & Oncology; FAMILY PHYSICIAN Family Medicine
DX: C18.2 Malignant neoplasm of ascending colon (principal)
CPT/HCPCS: 36415; 80053; 85025

== ENCOUNTER → 2023-08-31 09:47 | Outpatient (REF) | payer MEDICARE, SELFPAY ==
[2023-08-31 10:41] LABS: % Basophils 0.4 % (0-2); % Eosinophils 2.3 % (0-6); % Immature Granulocytes 0.2 % (0-0.5); % Lymphocytes 38.4 % (20.5-51.1); % Monocytes 9.8 % (1.7-9.3); % Neutrophils 48.9 % (42.2-75.2); Absolute Eosinophils 0.1 10^3/uL (0-0.7); Absolute Monocytes 0.5 10^3/uL (0.1-0.6); Absolute Neutrophils 2.6 10^3/uL (1.4-6.5); Hematocrit 35.4 % (39.0-52.0); Hemoglobin 11.8 g/dL (13.0-18.0); Mean Corp Hgb Conc. 33.3 g/dL (33.0-37.0); Mean Corpuscular Hgb 28.9 pg (27.0-31.0); Mean Corpuscular Volume 86.8 fL (80.0-94.0); Mean Platelet Volume 8.4 fL (7.4-10.4); Nucleated Red Blood Cells % 0 % (-); Platelet Count 217 10^3/uL (130-400); Red Blood Cell Count 4.08 10^6/uL (4.70-6.10); Red Cell Dist. Width 17.2 % (11.5-14.5); White Blood Cell Count 5.3 10^3/uL (4.8-10.8)
[2023-08-31 10:53] LABS: ALT (SGPT) 18 U/L (0-50); AST (SGOT) 25 U/L (17-59); Albumin 4.6 g/dl (3.5-5.0); Alkaline Phosphatase 85 U/L (38-126); Blood Urea Nitrogen 19 mg/dl (9-20); Calcium 9.6 mg/dl (8.4-10.2); Carbon Dioxide 25 mmol/L (22-30); Chloride 103 mmol/L (98-107); Glucose 99 mg/dl (70-99); Potassium 4.2 mmol/L (3.5-5.1); Sodium 138 mmol/L (135-145); Total Bilirubin 0.4 mg/dl (0.2-1.3); Total Protein 7.3 g/dl (6.3-8.2); eGFR > 60.00
== END ==
LOC: REG 09:47
PROVIDERS: ATTENDING PHYSICIAN Internal Medicine Hematology & Oncology; FAMILY PHYSICIAN Family Medicine
DX: C18.2 Malignant neoplasm of ascending colon (principal)
CPT/HCPCS: 36415; 80053; 85025

== ENCOUNTER → 2023-09-07 11:42 | Outpatient (REF) | payer MEDICARE, SELFPAY | LOC: RCS 11:42 | PROVIDERS: ATTENDING PHYSICIAN Internal Medicine Hematology & Oncology | DX: C18.2 Malignant neoplasm of ascending colon (principal); D64.9 Anemia, unspecified; D51.9 Vitamin B12 deficiency anemia, unspecified | CPT/HCPCS: 93005 ==

== ENCOUNTER → 2023-09-14 13:30 | Outpatient (REF) | payer MEDICARE, SELFPAY ==
[2023-09-14 14:32] LABS: % Basophils 0.3 % (0-2); % Eosinophils 0.3 % (0-6); % Immature Granulocytes 0.3 % (0-0.5); % Monocytes 5.9 % (1.7-9.3); % Neutrophils 70.2 % (42.2-75.2); Absolute Lymphocytes 1.6 10^3/uL (1.2-3.4); Absolute Monocytes 0.4 10^3/uL (0.1-0.6); Absolute Neutrophils 4.9 10^3/uL (1.4-6.5); Hematocrit 36.3 % (39.0-52.0); Hemoglobin 12.4 g/dL (13.0-18.0); Mean Corp Hgb Conc. 34.2 g/dL (33.0-37.0); Mean Corpuscular Hgb 29.2 pg (27.0-31.0); Mean Corpuscular Volume 85.6 fL (80.0-94.0); Mean Platelet Volume 8.5 fL (7.4-10.4); Nucleated Red Blood Cells % 0 % (-); Platelet Count 180 10^3/uL (130-400); Red Blood Cell Count 4.24 10^6/uL (4.70-6.10); Red Cell Dist. Width 17.3 % (11.5-14.5)
[2023-09-14 14:44] LABS: ALT (SGPT) 21 U/L (0-50); AST (SGOT) 24 U/L (17-59); Albumin 4.7 g/dl (3.5-5.0); Alkaline Phosphatase 74 U/L (38-126); Blood Urea Nitrogen 22 mg/dl (9-20); Calcium 9.8 mg/dl (8.4-10.2); Carbon Dioxide 25 mmol/L (22-30); Chloride 101 mmol/L (98-107); Glucose 143 mg/dl (70-99); Potassium 3.9 mmol/L (3.5-5.1); Sodium 138 mmol/L (135-145); Total Bilirubin 0.4 mg/dl (0.2-1.3); Total Protein 7.4 g/dl (6.3-8.2); eGFR > 60.00
== END ==
LOC: REG 13:30
PROVIDERS: ATTENDING PHYSICIAN Internal Medicine Hematology & Oncology; FAMILY PHYSICIAN Family Medicine
DX: C18.2 Malignant neoplasm of ascending colon (principal)
CPT/HCPCS: 36415; 80053; 85025

== ENCOUNTER → 2023-10-12 13:58 | Outpatient (REF) | payer MEDICARE, SELFPAY ==
[2023-10-12 14:33] LABS: % Basophils 0.5 % (0-2); % Eosinophils 1.4 % (0-6); % Immature Granulocytes 0.2 % (0-0.5); % Lymphocytes 29.6 % (20.5-51.1); % Monocytes 9.8 % (1.7-9.3); % Neutrophils 58.5 % (42.2-75.2); Absolute Eosinophils 0.1 10^3/uL (0-0.7); Absolute Lymphocytes 1.8 10^3/uL (1.2-3.4); Absolute Monocytes 0.6 10^3/uL (0.1-0.6); Absolute Neutrophils 3.5 10^3/uL (1.4-6.5); Hematocrit 35.9 % (39.0-52.0); Hemoglobin 12.1 g/dL (13.0-18.0); Mean Corp Hgb Conc. 33.7 g/dL (33.0-37.0); Mean Corpuscular Hgb 29.7 pg (27.0-31.0); Mean Platelet Volume 9.3 fL (7.4-10.4); Nucleated Red Blood Cells % 0 % (-); Platelet Count 121 10^3/uL (130-400); Red Blood Cell Count 4.08 10^6/uL (4.70-6.10); White Blood Cell Count 5.9 10^3/uL (4.8-10.8)
[2023-10-12 14:50] LABS: ALT (SGPT) 33 U/L (0-50); AST (SGOT) 43 U/L (17-59); Albumin 4.7 g/dl (3.5-5.0); Alkaline Phosphatase 81 U/L (38-126); Blood Urea Nitrogen 16 mg/dl (9-20); Carbon Dioxide 24 mmol/L (22-30); Chloride 103 mmol/L (98-107); Glucose 97 mg/dl (70-99); Potassium 4.1 mmol/L (3.5-5.1); Sodium 138 mmol/L (135-145); Total Bilirubin 0.6 mg/dl (0.2-1.3); Total Protein 7.4 g/dl (6.3-8.2); eGFR > 60.00
== END ==
LOC: REG 13:58
PROVIDERS: ATTENDING PHYSICIAN Internal Medicine Hematology & Oncology; FAMILY PHYSICIAN Family Medicine
DX: C18.2 Malignant neoplasm of ascending colon (principal); D64.9 Anemia, unspecified; D51.9 Vitamin B12 deficiency anemia, unspecified
CPT/HCPCS: 36415; 80053; 85025

== ENCOUNTER → 2023-10-26 13:27 | Outpatient (REF) | payer MEDICARE, SELFPAY ==
[2023-10-26 14:28] LABS: % Basophils 0.8 % (0-2); % Eosinophils 1.5 % (0-6); % Lymphocytes 36.8 % (20.5-51.1); % Monocytes 7.9 % (1.7-9.3); Absolute Eosinophils 0.1 10^3/uL (0-0.7); Absolute Lymphocytes 1.8 10^3/uL (1.2-3.4); Absolute Monocytes 0.4 10^3/uL (0.1-0.6); Absolute Neutrophils 2.6 10^3/uL (1.4-6.5); Hematocrit 36.3 % (39.0-52.0); Hemoglobin 11.9 g/dL (13.0-18.0); Mean Corp Hgb Conc. 32.8 g/dL (33.0-37.0); Mean Corpuscular Volume 91.4 fL (80.0-94.0); Mean Platelet Volume 9.8 fL (7.4-10.4); Nucleated Red Blood Cells % 0 % (-); Platelet Count 108 10^3/uL (130-400); Red Blood Cell Count 3.97 10^6/uL (4.70-6.10); Red Cell Dist. Width 19.7 % (11.5-14.5); White Blood Cell Count 4.8 10^3/uL (4.8-10.8)
[2023-10-26 14:48] LABS: ALT (SGPT) 35 U/L (0-50); AST (SGOT) 41 U/L (17-59); Albumin 4.4 g/dl (3.5-5.0); Alkaline Phosphatase 71 U/L (38-126); Blood Urea Nitrogen 12 mg/dl (9-20); Calcium 9.7 mg/dl (8.4-10.2); Carbon Dioxide 27 mmol/L (22-30); Chloride 103 mmol/L (98-107); Glucose 124 mg/dl (70-99); Potassium 3.8 mmol/L (3.5-5.1); Sodium 140 mmol/L (135-145); Total Bilirubin 0.5 mg/dl (0.2-1.3); Total Protein 7.1 g/dl (6.3-8.2); eGFR > 60.00
== END ==
LOC: REG 13:27
PROVIDERS: ATTENDING PHYSICIAN Internal Medicine Hematology & Oncology; FAMILY PHYSICIAN Family Medicine
DX: C18.2 Malignant neoplasm of ascending colon (principal); D64.9 Anemia, unspecified; D51.9 Vitamin B12 deficiency anemia, unspecified
CPT/HCPCS: 36415; 80053; 85025

== ENCOUNTER → 2023-10-27 16:15 | Outpatient (REF) | payer MEDICARE, SELFPAY ==
[2023-10-27 12:17] LABS: CEA 6.02 ng/ml
== END ==
LOC: OIDL 16:15
PROVIDERS: ATTENDING PHYSICIAN Internal Medicine Hematology & Oncology
DX: C18.2 Malignant neoplasm of ascending colon (principal)
CPT/HCPCS: 82378

== ENCOUNTER → 2023-11-09 12:08 | Outpatient (REF) | payer MEDICARE, SELFPAY ==
[2023-11-09 13:25] LABS: % Basophils 0.6 % (0-2); % Eosinophils 1.2 % (0-6); % Immature Granulocytes 0.2 % (0-0.5); % Lymphocytes 26.2 % (20.5-51.1); % Neutrophils 61.8 % (42.2-75.2); Absolute Eosinophils 0.1 10^3/uL (0-0.7); Absolute Lymphocytes 1.3 10^3/uL (1.2-3.4); Absolute Monocytes 0.5 10^3/uL (0.1-0.6); Absolute Neutrophils 3.1 10^3/uL (1.4-6.5); Hematocrit 33.4 % (39.0-52.0); Hemoglobin 11.2 g/dL (13.0-18.0); Mean Corp Hgb Conc. 33.5 g/dL (33.0-37.0); Mean Corpuscular Hgb 30.9 pg (27.0-31.0); Mean Corpuscular Volume 92.3 fL (80.0-94.0); Nucleated Red Blood Cells % 0 % (-); Platelet Count 110 10^3/uL (130-400); Red Blood Cell Count 3.62 10^6/uL (4.70-6.10); Red Cell Dist. Width 20.5 % (11.5-14.5); White Blood Cell Count 5.1 10^3/uL (4.8-10.8)
[2023-11-09 14:14] LABS: ALT (SGPT) 38 U/L (0-50); AST (SGOT) 50 U/L (17-59); Albumin 4.6 g/dl (3.5-5.0); Alkaline Phosphatase 75 U/L (38-126); Blood Urea Nitrogen 14 mg/dl (9-20); Calcium 9.5 mg/dl (8.4-10.2); Carbon Dioxide 23 mmol/L (22-30); Chloride 104 mmol/L (98-107); Glucose 91 mg/dl (70-99); Sodium 137 mmol/L (135-145); Total Bilirubin 0.5 mg/dl (0.2-1.3); eGFR > 60.00
== END ==
LOC: REG 12:08
PROVIDERS: ATTENDING PHYSICIAN Internal Medicine Hematology & Oncology
DX: C18.2 Malignant neoplasm of ascending colon (principal)
CPT/HCPCS: 36415; 80053; 85025

== ENCOUNTER → 2023-11-16 10:31 | Outpatient (REF) | payer MEDICARE, SELFPAY ==
[2023-11-16 11:35] LABS: ALT (SGPT) 44 U/L (0-50); AST (SGOT) 51 U/L (17-59); Albumin 4.5 g/dl (3.5-5.0); Alkaline Phosphatase 82 U/L (38-126); Blood Urea Nitrogen 10 mg/dl (9-20); Calcium 9.9 mg/dl (8.4-10.2); Carbon Dioxide 25 mmol/L (22-30); Chloride 103 mmol/L (98-107); Glucose 96 mg/dl (70-99); Potassium 4.6 mmol/L (3.5-5.1); Sodium 138 mmol/L (135-145); Total Bilirubin 0.4 mg/dl (0.2-1.3); Total Protein 7.1 g/dl (6.3-8.2); eGFR > 60.00
[2023-11-16 13:12] LABS: Hematocrit 35.5 % (39.0-52.0); Mean Corp Hgb Conc. 33.8 g/dL (33.0-37.0); Mean Corpuscular Hgb 32.4 pg (27.0-31.0); Mean Corpuscular Volume 95.9 fL (80.0-94.0); Mean Platelet Volume 9.2 fL (7.4-10.4); Platelet Count 241 10^3/uL (130-400); Red Cell Dist. Width 21.1 % (11.5-14.5); White Blood Cell Count 4.1 10^3/uL (4.8-10.8)
== END ==
LOC: REG 10:31
PROVIDERS: ATTENDING PHYSICIAN Internal Medicine Hematology & Oncology
DX: C18.2 Malignant neoplasm of ascending colon (principal); D64.9 Anemia, unspecified; D51.9 Vitamin B12 deficiency anemia, unspecified
CPT/HCPCS: 36415; 80053; 85027

== ENCOUNTER → 2023-11-30 10:07 | Outpatient (REF) | payer MEDICARE, SELFPAY ==
[2023-11-30 11:20] LABS: % Basophils 0.5 % (0-2); % Eosinophils 1.3 % (0-6); % Immature Granulocytes 0.4 % (0-0.5); % Lymphocytes 27.7 % (20.5-51.1); % Monocytes 8.8 % (1.7-9.3); % Neutrophils 61.3 % (42.2-75.2); Absolute Eosinophils 0.1 10^3/uL (0-0.7); Absolute Lymphocytes 1.6 10^3/uL (1.2-3.4); Absolute Monocytes 0.5 10^3/uL (0.1-0.6); Absolute Neutrophils 3.4 10^3/uL (1.4-6.5); Hematocrit 35.4 % (39.0-52.0); Hemoglobin 11.9 g/dL (13.0-18.0); Mean Corp Hgb Conc. 33.6 g/dL (33.0-37.0); Mean Corpuscular Hgb 32.2 pg (27.0-31.0); Mean Corpuscular Volume 95.7 fL (80.0-94.0); Mean Platelet Volume 10.7 fL (7.4-10.4); Nucleated Red Blood Cells % 0 % (-); Platelet Count 155 10^3/uL (130-400); White Blood Cell Count 5.6 10^3/uL (4.8-10.8)
[2023-11-30 13:43] LABS: ALT (SGPT) 23 U/L (0-50); AST (SGOT) 39 U/L (17-59); Albumin 4.7 g/dl (3.5-5.0); Alkaline Phosphatase 93 U/L (38-126); Blood Urea Nitrogen 9 mg/dl (9-20); Calcium 9.9 mg/dl (8.4-10.2); Carbon Dioxide 25 mmol/L (22-30); Chloride 105 mmol/L (98-107); Glucose 100 mg/dl (70-99); Potassium 4.9 mmol/L (3.5-5.1); Sodium 137 mmol/L (135-145); Total Bilirubin 0.6 mg/dl (0.2-1.3); Total Protein 7.4 g/dl (6.3-8.2); eGFR > 60.00
== END ==
LOC: REG 10:07
PROVIDERS: ATTENDING PHYSICIAN Internal Medicine Hematology & Oncology; FAMILY PHYSICIAN Family Medicine
DX: C18.2 Malignant neoplasm of ascending colon (principal); D64.9 Anemia, unspecified; D51.9 Vitamin B12 deficiency anemia, unspecified
CPT/HCPCS: 36415; 80053; 85025

== ENCOUNTER → 2023-12-22 07:28 | Outpatient (REF) | payer MEDICARE, SELFPAY ==
[2023-12-22 07:51] VITALS: BP 130/82; BP_SYST 55
== END ==
LOC: RADI 07:28
PROVIDERS: ATTENDING PHYSICIAN Internal Medicine Hematology & Oncology
DX: Z45.2 Encounter for adjustment and management of vascular access device (principal); C18.2 Malignant neoplasm of ascending colon
CPT/HCPCS: 36590; 77001

== ENCOUNTER → 2023-12-30 12:11 | Outpatient (REF) | payer MEDICARE, SELFPAY ==
[2023-12-30 14:32] LABS: % Basophils 0.6 % (0-2); % Lymphocytes 33.7 % (20.5-51.1); % Neutrophils 54.7 % (42.2-75.2); Absolute Eosinophils 0.1 10^3/uL (0-0.7); Absolute Lymphocytes 1.6 10^3/uL (1.2-3.4); Absolute Monocytes 0.5 10^3/uL (0.1-0.6); Absolute Neutrophils 2.6 10^3/uL (1.4-6.5); Hematocrit 33.9 % (39.0-52.0); Hemoglobin 11.5 g/dL (13.0-18.0); Mean Corp Hgb Conc. 33.9 g/dL (33.0-37.0); Mean Corpuscular Volume 100.3 fL (80.0-94.0); Mean Platelet Volume 9.1 fL (7.4-10.4); Nucleated Red Blood Cells % 0 % (-); Platelet Count 173 10^3/uL (130-400); Red Blood Cell Count 3.38 10^6/uL (4.70-6.10); Red Cell Dist. Width 16.6 % (11.5-14.5); White Blood Cell Count 4.8 10^3/uL (4.8-10.8)
[2023-12-30 15:29] LABS: ALT (SGPT) 27 U/L (0-50); AST (SGOT) 39 U/L (17-59); Albumin 4.6 g/dl (3.5-5.0); Alkaline Phosphatase 102 U/L (38-126); Blood Urea Nitrogen 22 mg/dl (9-20); Calcium 9.1 mg/dl (8.4-10.2); Carbon Dioxide 27 mmol/L (22-30); Chloride 100 mmol/L (98-107); Glucose 85 mg/dl (70-99); Potassium 4.9 mmol/L (3.5-5.1); Sodium 138 mmol/L (135-145); Total Bilirubin 0.7 mg/dl (0.2-1.3); Total Protein 7.3 g/dl (6.3-8.2); eGFR > 60.00
[2023-12-30 16:00] LABS: CEA 5.04 ng/ml
== END ==
LOC: REG 12:11
PROVIDERS: ATTENDING PHYSICIAN Internal Medicine Hematology & Oncology; FAMILY PHYSICIAN Family Medicine
DX: C18.2 Malignant neoplasm of ascending colon (principal); D64.9 Anemia, unspecified; D51.9 Vitamin B12 deficiency anemia, unspecified
CPT/HCPCS: 36415; 80053; 82378; 85025

== ENCOUNTER → 2023-12-31 08:33 | Outpatient (REF) | payer MEDICARE, SELFPAY | LOC: RAD 08:33 | PROVIDERS: ATTENDING PHYSICIAN Internal Medicine Hematology & Oncology; FAMILY PHYSICIAN Family Medicine | DX: C18.2 Malignant neoplasm of ascending colon (principal); D64.9 Anemia, unspecified; D51.9 Vitamin B12 deficiency anemia, unspecified | CPT/HCPCS: 71260; 74177; Q9967 ==

== ENCOUNTER → 2024-02-18 13:42 | Outpatient (REF) | payer MEDICARE, SELFPAY ==
--- NOTE | 2024-02-18 14:29 | CARDSERVLU ---
Echocardiogram with Lumason completed after protocol screening completed. Allergies verified.
Patent IV site: Right median antecubital 22 G PC, rapid blood return
IV site flushed with 0.9% NaCl pre and post administration.
Diluted bolus method utilized to enhance visualization of ventricular calderon.
Total volume given: __3__ mL
Patient tolerated all procedures well without complications.
Heplock D/C ed at 1428, site clear, no redness, no edema. Pressure held as pt on ASA, no bleeding, 2x2 applied and taped. Pt offers no complaints.
== END ==
LOC: RCS 13:42
PROVIDERS: ATTENDING PHYSICIAN Thoracic Surgery (Cardiothoracic Vascular Surgery); FAMILY PHYSICIAN Family Medicine
DX: I25.10 Atherosclerotic heart disease of native coronary artery without angina pectoris (principal); Z01.818 Encounter for other preprocedural examination
CPT/HCPCS: 93306; Q9950

== ENCOUNTER 2024-02-23 04:59 | Inpatient (IN) | payer MEDICARE, SELFPAY ==
[2024-02-16 08:41] VITALS: BMI 25.5
[2024-02-16 09:23] LABS: APTT 38.5 Sec (23.4-35.0)
[2024-02-16 09:26] LABS: ALT (SGPT) 23 U/L (0-50); AST (SGOT) 30 U/L (17-59); Albumin 4.8 g/dl (3.5-5.0); Alkaline Phosphatase 82 U/L (38-126); Blood Urea Nitrogen 22 mg/dl (9-20); Calcium 10.1 mg/dl (8.4-10.2); Carbon Dioxide 29 mmol/L (22-30); Chloride 102 mmol/L (98-107); Direct Bilirubin 0.1 mg/dl (0.0-0.4); Estimated Creatinine Clearance 70 ml/min; Glucose 98 mg/dl (70-99); Potassium 4.5 mmol/L (3.5-5.1); Sodium 142 mmol/L (135-145); Total Bilirubin 0.4 mg/dl (0.2-1.3); Total Protein 7.7 g/dl (6.3-8.2); eGFR > 60.00
[2024-02-16 09:30] LABS: % Basophils 0.8 % (0-2); % Eosinophils 3.8 % (0-6); % Immature Granulocytes 0.3 % (0-0.5); % Lymphocytes 29.2 % (20.5-51.1); % Neutrophils 57.9 % (42.2-75.2); Absolute Basophils 0.1 10^3/uL (0-0.2); Absolute Eosinophils 0.2 10^3/uL (0-0.7); Absolute Lymphocytes 1.8 10^3/uL (1.2-3.4); Absolute Monocytes 0.5 10^3/uL (0.1-0.6); Absolute Neutrophils 3.5 10^3/uL (1.4-6.5); Hematocrit 38.1 % (39.0-52.0); Hemoglobin 12.8 g/dL (13.0-18.0); Mean Corp Hgb Conc. 33.6 g/dL (33.0-37.0); Mean Corpuscular Hgb 31.7 pg (27.0-31.0); Mean Corpuscular Volume 94.3 fL (80.0-94.0); Mean Platelet Volume 9.2 fL (7.4-10.4); Nucleated Red Blood Cells % 0 % (-); Platelet Count 300 10^3/uL (130-400); Red Blood Cell Count 4.04 10^6/uL (4.70-6.10); Red Cell Dist. Width 13.9 % (11.5-14.5)
[2024-02-16 10:04] LABS: Glycohemoglobin (HgbA1c) 5.7 % (4.0-5.6)
[2024-02-16 10:14] LABS: Urine Albumin Negative (Neg - Trace); Urine Bilirubin Negative (Negative); Urine Character Clear (Clear); Urine Color Yellow; Urine Glucose 3+ (Negative); Urine Ketone Negative (Negative); Urine Leukocyte Trace (Negative); Urine Nitrite Negative (Negative); Urine Occult Blood Negative (Negative); Urine Urobilinogen Negative (Neg - 1+)
--- NOTE | 2024-02-16 10:39 | CM ---
Met with Mr. Espino in [facility]. He states prior to admission he resides with his spouse in a one story home without any steps to enter. He states prior to prior to admission he was independent with ambulation and adls. He states he does not
have any DME in the home. He is not sure if he has a prescription plan and uses [facility]. He states his spouse will be home to assist in his care if needed. The discharge plan is to return home with his spouse and a home visit by the
Transitional Care Nurse versus [facility] when medically stable.
We reviewed pre-op and post-op routines. We reviewed the shower instructions. He has the soap, written instructions and the Cardiothoracic Surgery Educational Booklet. We also reviewed restrictions including sternal precautions and driving
restrictions. We reviewed a home visit by the Cardiothoracic Transitional Care Nurse or [facility]. He is agreeable to a hoe visit. The plan is for CABG on Friday, February 23, 2024.
[2024-02-16 10:41] LABS: Urine Red Blood Cell 0-2 /HPF (0-2)
[2024-02-23] VITALS (17 sets, daily range): BP systolic 80–142; BP diastolic 60–79; BMI 25.7
[2024-02-23] MEDS: LOPRESSOR 25 MG PO (05:40)
[2024-02-23] MEDS: PROTONIX 40 MG PO (05:40)
[2024-02-23] MEDS: MAGNESIUM OXIDE 500 MG PO (05:40)
[2024-02-23] MEDS: BACTROBAN 2% OINTMENT 1 APPLIC NASAL ×2 (05:41→20:05)
--- NOTE | 2024-02-23 06:15 | PTCARENOTE ---
Pt arrived to CVICU for SDA for CABG procedure. blood bank called and confirmed that no ABO needed. pt changed into gown, clipped, and CHG wipes provided. x2 home showers confirmed. all admissions question were answered by pt. home medications
review. pre-op medications given. dentures removed. Dr Martin spoke with pt. awaiting OR.
--- NOTE | 2024-02-23 06:30 | W.CVOR.SURPR ---
CVOR Surgeon Immed Pre Op
-
I have examined this patient prior to performance of the scheduled procedure.
The patient's condition is unchanged from the time of the dictated/written History and
Physical and the patient is able to undergo the scheduled procedure.
High risk CABG with low EF, s/p colectomy for Ca and adjuvant chemo
[2024-02-23 07:41] LABS: Urine Albumin Negative (Neg - Trace); Urine Bilirubin Negative (Negative); Urine Character Clear (Clear); Urine Color Yellow; Urine Glucose Negative (Negative); Urine Ketone Negative (Negative); Urine Leukocyte Trace (Negative); Urine Nitrite Negative (Negative); Urine Occult Blood Negative (Negative); Urine Specific Gravity 1.015 (<1.030); Urine Urobilinogen Negative (Neg - 1+)
[2024-02-23 07:42] LABS: ACT+ - POC 90 Seconds (82-134)
--- NOTE | 2024-02-23 08:26 | CM ---
Reviewed chart. Mr. Espino is in the operating room today. Prior to admission he resides with his spouse in a one story home without any steps to enter. Prior to admission he was independent with ambulation and adls. He does not have any DME
in the home. He is not sure he has a prescription plan and uses [facility]. His spouse will be home to assist in his care if needed. Medical work-up in progress. The discharge plan is to return home with his spouse and a home visit by the
Transitional Care Nurse when medically stable.
[2024-02-23 08:27] LABS: Urine Amorphous Seen; Urine Urothelial Cell 0-2 /LPF (FEW)
[2024-02-23 08:28] LABS: Urine Red Blood Cell 0-2 /HPF (0-2)
[2024-02-23 08:29] LABS: Urine Hyaline Cast 0-2 /LPF (0-2)
[2024-02-23 09:01] LABS: ACT+ - POC 87 Seconds (82-134)
[2024-02-23 09:11] LABS: ACT+ - POC 564 Seconds (82-134)
--- NOTE | 2024-02-23 09:13 | W.PN.CD ---
Addendum entered and electronically signed by Pili Swan MD 02/23/24 16:57:
Pt is evaluated personally. I agree with the note, assessment and documentation as below
Briefly 68 yrs old man s/p CABG x 4 (In situ BRISENO to LAD, Ao to RSVG to diagonal sequential to OM, Ao to RSVG to RPDA) and Left atrial appendage exclusion [35 mm clip] had noted to have severe systolic dysfunction but has tolerated the procedure
well. Will keep in CVICU and asses hemodynamic needs. Possible extubation today.
Original Note:
Today's Communication / Plan
-
Follow telemetry
Impression / Plan
-
BACKGROUND: 68M carotid artery stenosis status post TCAR, ischemic cardiomyopathy, hypertension, dyslipidemia, stage III colon cancer status post hemicolectomy and FOLFOX, and multivessel coronary artery disease who presented for CABG
Deal Architect: Dr. Parra
PLAN:
Coronary artery disease status post CABG (In situ BRISENO to LAD, Ao to RSVG to diagonal sequential to OM, Ao to RSVG to RPDA) by Dr. Martin on 02/23/2024
-EKG with stable, some elevation in V5, EKG in a.m.
-Pre LVEF 25% and post 40%
-Akinesis of the apex, and in the operative room the apex was aneurysmal and thin
-Follow telemetry
HFrEF/Ischemic cardiomyopathy (LVEF 25%), chronic
-Maintain euvolemia, weight 70 kg the day of surgery
-GDMT as tolerated
-Beta-niharika: Metoprolol succinate
-SGLT2: Farxiga, resume when able (preoperative hold)
-ICD: Reassess LVEF in 3 months
-Trend daily weight, I/O, and BMP
Hypertension
Dyslipidemia, no outpatient fasting lipid panel per my review, fasting lipid panel in a.m.
Prediabetes, HgbA1c 5.7
Carotid artery stenosis status post right TCAR
Colon cancer (T3, N1c, Mo, stage III) status post hemicolectomy and FOLFOX (completed 8 cycles), follows with Dr. Lindsey
Cervical spinal stenosis with neuropathy
SUBJECTIVE:
Patient intubated. Operative notes reviewed
DATA:
Transthoracic echocardiogram, 02/18/2024:
Dilated left ventricle with severely reduced left ventricular systolic
function.
Left ventricular ejection fraction is 25%.
Evidence of a large LAD infarct involving the anterior/anteroseptal/and the
entire apical myocardial calderon.
Stage I diastolic dysfunction.
Moderate left atrial enlargement. Mild mitral regurgitation.
Moderate aortic valve sclerosis without significant stenosis.
No significant change since the prior study of 05/27/2023.
Physical Exam
Vital Signs/Labs
Vital Signs
Temp Pulse Resp BP Pulse Ox
97.9 F 62 18 142/79 100
02/23/24 05:57 02/23/24 05:57 02/23/24 05:57 02/23/24 05:57 02/23/24 05:57
02/22/24 02/23/24 02/24/24
06:59 06:59 06:59
Actual Weight 70 kg
02/16/24 08:53
02/16/24 08:53
PT 13.0 Sec (11.4-14.6) 02/16/24 08:53
INR 1.00 02/16/24 08:53
APTT 38.5 Sec (23.4-35.0) H 02/16/24 08:53
Physical Exam
Constitutional: No acute distress and Comfortable
EENT: Anicteric and Moist mucous membranes
Cardiovascular: Rhythm & rate is regular, Pedal edema is absent and S1S2 is normal
Respiratory: Lungs clear to auscul.
GI: Soft, Distention absent, Flat, Non tender and Normal bowel sounds
Neuro/Psych: Other (nods head appropriately)
Other: Skin (Warm and dry without edema)
Data Reviewed
-
Date of Service: February 23, 2024
EKG: Report Reviewed by me
[2024-02-23 09:22] LABS: B.E. - POC -1.2 mmol/L; Glucose - POC 102 mg/dl (70-99); HCO3 - POC 25 mmol/L (21-29); Hematocrit - POC 35 % PCV (42-52); Hemodilution- POC Yes; Hemoglobin Calculated - POC 11.8; Ionized Calcium - POC 1.17 mmol/L (1.12-1.27); O2 Saturation %Calculated-POC 99.8 % (92-96); PCO2 - POC 47 mmHg (35-45); PO2 - POC 241 mmHg (80-100); POC Comment PRE; Potassium - POC 3.9 mmol/L (3.6-5.0); Sodium - POC 143 mmol/L (135-145); pH - POC 7.33 (7.35-7.45)
[2024-02-23 09:39] LABS: ACT+ - POC 868 Seconds (82-134)
[2024-02-23 09:55] LABS: B.E. - POC -3.5 mmol/L; Glucose - POC 142 mg/dl (70-99); HCO3 - POC 22 mmol/L (21-29); Hematocrit - POC 24 % PCV (42-52); Hemodilution- POC Yes; Hemoglobin Calculated - POC 8.1; Ionized Calcium - POC 0.96 mmol/L (1.12-1.27); O2 Saturation %Calculated-POC 99.9 % (92-96); PCO2 - POC 43 mmHg (35-45); PO2 - POC 355 mmHg (80-100); POC Comment CPB; Potassium - POC 5.6 mmol/L (3.6-5.0); Sodium - POC 134 mmol/L (135-145); pH - POC 7.33 (7.35-7.45)
[2024-02-23 10:12] LABS: ACT+ - POC 726 Seconds (82-134)
[2024-02-23 10:32] LABS: B.E. - POC 2.7 mmol/L; Glucose - POC 197 mg/dl (70-99); HCO3 - POC 29 mmol/L (21-29); Hematocrit - POC 29 % PCV (42-52); Hemodilution- POC Yes; Ionized Calcium - POC 1.08 mmol/L (1.12-1.27); O2 Saturation %Calculated-POC 99.7 % (92-96); PCO2 - POC 51 mmHg (35-45); PO2 - POC 206 mmHg (80-100); POC Comment WARM; Potassium - POC 5.9 mmol/L (3.6-5.0); Sodium - POC 141 mmol/L (135-145); pH - POC 7.36 (7.35-7.45)
[2024-02-23 10:42] LABS: ACT+ - POC 558 Seconds (82-134)
[2024-02-23 10:55] LABS: Glucose - POC 162 mg/dl (70-99); HCO3 - POC 27 mmol/L (21-29); Hematocrit - POC 30 % PCV (42-52); Hemodilution- POC Yes; Hemoglobin Calculated - POC 10.3; Ionized Calcium - POC 1.45 mmol/L (1.12-1.27); O2 Saturation %Calculated-POC 99.9 % (92-96); PCO2 - POC 46 mmHg (35-45); PO2 - POC 270 mmHg (80-100); POC Comment CPB; Potassium - POC 4.9 mmol/L (3.6-5.0); Sodium - POC 143 mmol/L (135-145); pH - POC 7.37 (7.35-7.45)
[2024-02-23 10:59] LABS: ACT+ - POC 112 Seconds (82-134)
[2024-02-23 11:02] LABS: B.E. - POC -0.3 mmol/L; Glucose - POC 119 mg/dl (70-99); HCO3 - POC 27 mmol/L (21-29); Hematocrit - POC 31 % PCV (42-52); Hemodilution- POC Yes; Hemoglobin Calculated - POC 10.6; Ionized Calcium - POC 1.35 mmol/L (1.12-1.27); O2 Saturation %Calculated-POC 99.2 % (92-96); PCO2 - POC 53 mmHg (35-45); PO2 - POC 161 mmHg (80-100); POC Comment POST; Potassium - POC 3.8 mmol/L (3.6-5.0); Sodium - POC 145 mmol/L (135-145); pH - POC 7.31 (7.35-7.45)
--- NOTE | 2024-02-23 11:40 | CON.INTV ---
Consultation
Consultation Request
Date/Time Consultation Requested: 02/23/2024 - 1108
Date/Time Consultation Performed: 02/23/2024 - 1131
Requesting Provider: DAYAN Penaloza
Performing Provider: Hugh Oh MD
Reason for Consultation: s/p CABG x4
Medical History
-
Chief Complaint: Elective CABG x4
History of Present Illness:
68-year-old male with a past medical history of tobacco use disorder, mild pulmonary pretension, multivessel CAD, history of appendicitis, alcohol use disorder, cervical/lumbar foraminal stenosis with DDD, right ICA stenosis, bilateral shoulder
osteoarthritis, hyperlipidemia/hypertension and impaired fasting glucose who presents with elective CABG. Patient known to cardiothoracic surgery with last visit with Dr. Martin on 02/04/2024. He was found to have significant multivessel CAD anterior
there were EKG abnormalities via his PCPs office back in February 2023. EF found to be severely low at 30%. CABG workup revealed significant CAD and he underwent a TCAR procedure by vascular surgery. He also was found to be extremely anemic with
colonoscopy showing colon cancer (invasive adenocarcinoma via colonic polypectomy on 06/01/2023). He did later undergo a right-sided hemicolectomy on 07/03/2023. He is also received adjuvant chemotherapy, which is not complete. He continues to be
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 Cardiothoracic coronary revascularization was discussed including its risks and benefits, and CABG x 4 was reviewed in detail. Today,
patient underwent CABG x 4 with left atrial appendage exclusion with a 35mm clip. There were no immediate complications and he was transferred to the CVICU postoperatively for further care with ekg monitor services consulted for additional
management/recommendations.
When I saw the patient he was in bed, intubated currently on CPAP at 5/5, at 40% FiO2, with PIP: 11 cmH2O, breathing at 14 breaths/min and VTe 630 mL. Heart rate 82, BP 99/56 (via left radial A-line), PAP 25/16, CO/CI: 3.82/2.16, respectively, BP
via NIBP: 84/62mmHg and saturating 99%. Currently on Levophed at 1mcg/min and insulin drip at 2.6units/hr. He has mediastinal chest tubes x 2+ left pleural chest tube.
PMHx: History of appendicitis, tobacco use, mild pulmonary hypertension, multivessel CAD, chronic combined systolic + diastolic heart failure, aortic atherosclerosis, aortic valve calcification, hyperlipidemia, impaired fasting glucose,
hypertension, ICM, cervical/lumbar foraminal stenosis, cervical/lumbar DDD, alcohol use disorder, right ICA stenosis, bilateral shoulder osteoarthritis
PShx: Appendectomy, skin cancer excision (right hand), cardiac cath, right transcarotid artery revascularization
Past Medical History
Past Medical History: Other (Above as per HPI)
Past Surgical History: Other (Above as per HPI)
Social History
Tobacco: Smoker (Smokes 0.25PPD or less - previously smoked 3 PPD per day)
Alcohol: Daily (4 beers daily)
Drug: None
Personal:
Living: With Family
Employment: Employed ([employer])
Family History
Family History: CAD (Father) and Diabetes (Father)
Allergies / Home Medications
Allergies
Allergy/AdvReac Type Severity Reaction Status Date / Time
No Known Allergies Allergy Verified 02/12/24 09:57
Home Medications
�Medication �Instructions �Recorded �Confirmed �Last Taken �Type
aspirin 81 mg tablet,delayed 81 mg PO DAILY Blood Clot 05/28/23 02/23/24 02/22/24 08:00 History
release Prevention/Tx
atorvastatin 80 mg tablet 80 mg PO HS High Cholesterol 05/28/23 02/23/24 02/22/24 08:00 History
dapagliflozin propanediol 10 mg 10 mg PO DAILY Heart 06/04/23 02/23/24 02/15/24 08:00 Rx
tablet (Farxiga) disease/condition #30 tabs
folic acid 1 mg tablet 1 mg PO DAILY Supplement #30 tabs 06/04/23 02/23/24 02/15/24 08:00 Rx
metoprolol succinate 25 mg 25 mg PO DAILY Heart Failure #30 06/04/23 02/23/24 02/22/24 08:00 Rx
tablet,extended release 24 hr tabs
thiamine HCl (vitamin B1) 100 mg 100 mg PO DAILY Supplement 08/04/23 02/23/24 02/02/24 08:00 History
tablet
cyanocobalamin (vitamin B-12) 1 tab PO DAILY Supplement 02/12/24 02/23/24 02/22/24 08:00 History
isosorbide mononitrate 30 mg 60 mg PO DAILY Heart 02/12/24 02/23/24 02/20/24 08:00 History
tablet,extended release 24 hr disease/condition
Review of Systems
-
Unable to Obtain full review of systems at this time due to: Patient Intubation
Vitals / Labs / Diagnostic Testing
Vital Signs
Temp Pulse Resp BP Pulse Ox
97.3 F 84 14 92/66 98
02/23/24 13:00 02/23/24 13:10 02/23/24 13:10 02/23/24 13:00 02/23/24 13:10
Lab Data
02/23/24 12:04
Laboratory Results
02/23/24
12:04
PT 15.9 H
INR 1.29
APTT 33.9
pH 7.33 L
pCO2 48
pO2 96
HCO3 25.3
O2 Delivery Level
Diagnostic Testing:
Physical Exam
-
HEENT: Normocephalic, Anicteric and Other (ETT in place)
Cardiovascular: S1/S2 and Peripheral Edema (negative)
Respiratory: Wheeze (negative), Rales (negative), Rhonchi (negative), Non-Labored Respirations, Other (Mechanical breath sounds heard bilaterally) and Other (Chest tubes: mediastinal chest tubes x 2+ left pleural chest tube)
GI: Soft, Non Distended, Non Tender and Normal Bowel Sounds
Neurology: Tremors (negative) and Other (Sedated)
Skin: Warm and Dry
General: Respiratory Distress (negative), Comfortable, Chills (negative) and Sweats (negative)
Assessment
-
Assessment: 68-year-old male with a past medical history of tobacco use disorder, mild pulmonary pretension, multivessel CAD, history of appendicitis, alcohol use disorder, cervical/lumbar foraminal stenosis with DDD, right ICA stenosis, bilateral
shoulder osteoarthritis, hyperlipidemia/hypertension and impaired fasting glucose who presents with elective CABG. Patient known to cardiothoracic surgery with last visit with Dr. Martin on 02/04/2024. He was found to have significant multivessel CAD
anterior there were EKG abnormalities via his PCPs office back in February 2023. EF found to be severely low at 30%. CABG workup revealed significant CAD and he underwent a TCAR procedure by vascular surgery. He also was found to be extremely
anemic with colonoscopy showing colon cancer (invasive adenocarcinoma via colonic polypectomy on 06/01/2023). He did later undergo a right-sided hemicolectomy on 07/03/2023. He is also received adjuvant chemotherapy, which is not complete. He
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 Cardiothoracic coronary revascularization was discussed including its risks and benefits, and CABG x 4 was reviewed in
detail. On 02/23/2024, he underwent CABG x 4 with left atrial appendage exclusion with a 35mm clip. There were no immediate complications and he was transferred to the CVICU postoperatively for further care with ekg monitor services consulted for
additional management/recommendations.
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
glucose, hypertension, ICM, cervical/lumbar foraminal stenosis, cervical/lumbar DDD, alcohol use disorder, right ICA stenosis, bilateral shoulder osteoarthritis
Impression:
#Multivessel CAD with severely reduced LVEF s/p CABG x 4 (POD #0)
#s/p left atrial appendage exclusion with 35mm clip (POD #0)
#Anemia
#Chronic systolic and diastolic heart failure with ICM
#Chronic HFrEF
#Hypertension
#Hyperlipidemia
#Carotid stenosis s/p TCAR
#Significant tobacco abuse with [id number] history of smoking, currently smoking 0.25PPD
#Moderate COPD via PFT from 02/16/2024
Plan:
Ventilator settings reviewed
FiO2 will be weaned to maintain SpO2 88-95%
Minute ventilation will be adjusted
Arterial blood gases will be monitored
Spontaneous breathing trial will be attempted with hopeful extubation after anesthesia/sedation wear off
prn nebulized bronchodilators
Pulmonary artery catheter parameters will be followed
Pressors/antihypertensive/inotropes/diuretics will be provided as needed
Maintain MAP>65
Replete electrolytes with K>4, Mg>2
Monitor chest tube output (mediastinal chest tubes x 2+ left pleural chest tube)
Monitor hemoglobin
Monitor platelet count and coags
Transfuse blood products as needed to maintain Hb>7g/dL, plt>50k (given post-operative status)
CT surgery managing chest tubes
Monitor blood sugar to maintain euglycemia with goal BG 140-180
Insulin drip per protocol
Nicotine patch --> he does qualify for annual LDCT chest for lung cancer screening. This can be spoken to him about in the office and he should also see us for COPD management and full PFT with diffusing capacity and lung volumes to further
characterize his lung function as he has moderate severity COPD via spirometry from 02/16/2024
Aspiration precautions
VAP prevention protocol
DVT prophylaxis
Early nutrition
Early mobilization
Critical care statement: A total of 46 minutes of critical care time was provided for this patient today. This includes management of ventilator, spontaneous breathing trial, arterial blood gases, pressors, of unstable vital signs, evaluation of the
patient at bedside, reviewing the patient's pertinent medical records including radiographs, microbiology, laboratory evaluations, and discussion with primary team and critical care nursing.
--- NOTE | 2024-02-23 11:51 | W.PN.CT.SURG ---
CT Surgery Operative Note
-
CARDIAC SURGERY OPERATIVE REPORT
Preoperative Diagnosis: Multivessel Coronary Artery Disease with Severely Reduce Left Ventricular Ejection Function
Postoperative Diagnosis: Same
Procedure(s) Performed:
1. Standard sternotomy with aortic and right atrial cannulation
2. Coronary artery bypass grafting x 4 (In situ BRISENO to LAD, Ao to RSVG to diagonal sequential to OM, Ao to RSVG to RPDA)
3. Endoscopic vein harvesting of right lower extremity
4. Left atrial appendage exclusion [35 mm clip]
5. Transesophageal echocardiography
6. Placement of temporary ventricular pacing wires and atrial pacing wires
Date of Surgery: 02/23/2024
Comorbidities:
1. 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
2. Severely reduced left ventricular ejection fraction of 20%
3. Multivessel coronary disease involving the LAD
4. Hypertension
5. Hyperlipidemia
6. Significant atherosclerotic disease of the aorta
7. Carotid stenosis status post TCAR
8. Osteoarthritis
9. Significant tobacco abuse, [id number] history of smoking
10. Mild pulmonary hypertension
11. Functional mitral valve insufficiency, mild
12. Status post colorectal surgery and adjuvant chemotherapy for colorectal cancer within the last year
Attending Surgeon: Govind Martin MD, MS
Assistants: Govind Russo PA-C (present and necessary to assistant press operator offset, endoscopic vein harvest, retraction, suction, exposure, suture management, and wound closure under my direction)
Anesthesiology: Garry Ruvalcaba MD and ANTHONY Styles
Scrub and Circulating RNs: Arlin Hastings, RN, Tamir Kapoor RN
Process Control Manager: Kayode Galan CCP
Anesthesia: GETA
EBL: per perfusion records
Products: None
CPB Time: 92 minutes
Aortic Cross Clamp Time: 63 minutes
Indication(s) for Procedures: This is a 68-year-old male with significant multivessel coronary disease. He also reduced the ventricular action fraction with severe regional wall motion abnormalities. His EF was approximately 25% preoperatively.
He also had a dilated left ventricle with ischemic cardiomyopathy. He recently was diagnosed with colorectal cancer and underwent colorectal surgery and adjuvant chemotherapy. He had ongoing anginal type symptoms. Given his disease pattern and
ongoing symptoms, he was offered high risk surgical revascularization. He accepted those risks and so we proceeded.
Conduit(s) Quality:
BRISENO -skeletonized/excellent conduit
RSVG -excellent/good quality vein with minimal varicosities
Target(s) Quality:
RCA/PDA -good large sized target/test dosing of antegrade demonstrated a mean flow of approximately 60 cc a minute at a pressure of 80 mmHg. Flow probe assessment of the graft demonstrated a mean flow of approximately 40 cc a minute with a
pulsatility index of 1.5
Diag/OM -good quality size target/sequential graft to the diagonal, mean flow to the OM was approximately 45 cc a minute at a pressure of 80 mmHg. Flow probe assessment of the sequential graft yielded a mean flow of 80 cc a minute with a
pulsatility index of 1.9
LAD -good quality size target/excellent visual flow in the LAD territory with movement with a bulldog clamp. There was a mean flow of approximate 25 cc a minute at a pulsatility index of 2.3
Implants:
1. 35 mm clip, serial #[id number]
2. Gold curved box plate with 16 mm screws x 4
Findings: His left ventricular ejection fraction preoperatively was severely reduced approximate 20%. There was significant regional wall motion abnormalities particular towards the apex and basal inferior wall. Following surgery his EF improved
significantly to 40% on very low-dose dobutamine, actually had to come off of dobutamine due to hypotension as he was very hyperdynamic with a cardiac index of over 3. The BRISENO was harvested in a skeletonized fashion. Following bypass grafting, test
dose cardioplegia was given down each distal and confirmed patency and hemostasis. Each distal was probed both proximally and distally to confirm disease and patency, respectively. He had akinesis of the apex, and the operative room the apex was
aneurysmal and thin. No apical thrombus within 5 on SHAAN. His left atrial appendage was verified to be free of any thrombus or debris preoperatively and was totally occlusive postoperatively. No blood products were required, he was sinus rhythm
following surgery, and was off inotropic support at the conclusion of the case.
Description of Procedure: The patient was taken to the operating room. Their identity and procedure to be performed were verified and they were positioned supine on the operating table. Induction via general anesthesia with endotracheal intubation
was performed and central venous access and arterial monitoring were inserted. A preoperative transesophageal echocardiogram was performed to assess cardiac function and valvular function. The patient was then prepped and draped from chin to feet in
a sterile fashion. A preoperative time-out was performed with all members of the team present. A midline chest incision was performed along with median sternotomy. Simultaneous endoscopic access of the right lower extremity for saphenous vein
harvest was obtained along with administration of an initial 5,000 units of IV heparin. A RulTract sternal retractor was positioned to exposure the left internal mammary bed. The mammary was harvested and found to have good flow. A bulldog clamp was
applied to the distal end of the mammary after dividing it. It was wrapped in a papaverine soaked RayTec and replaced back into the left hemithorax. The RulTract was exchanged for a median sternal retractor. The innominate vein was isolated. Full
heparinization was given (a total of 40 units). We created a pericardial well. The aortic cannulation site was chosen where it was soft, pliable, and free of calcium. Cannulation was performed with an arterial cannula in the ascending aorta and a
triple-stage venous cannula through the right atrial appendage. The arterial cannula line had an appropriate bounce and correlating pressures with test dosing. Next, a root vent/antegrade cannula was inserted into the ascending aorta. The ACT was
confirmed to be over 400 and retrograde autologous priming was performed before commencing cardiopulmonary bypass. The pulmonary artery was away from the aorta to facilitate a clamp site. The aortic cross-clamp was placed after decreasing
the flow on the bypass and mean arterial pressure. A total of 1.2L initial dose of antegrade Del-Nido cardioplegia solution was given and planned for re-dosing every 75 minutes as necessary. There was rapid electro-mechanical arrest of the heart at
300 cc of cardioplegia. The left ventricle was observed for distention on echocardiogram and manual palpation. Cold slush was placed into a sponge and topically on the RV while we systemically cooled to 34 degrees centigrade. After the heart was
fully arrested, it was medialized and the left atrial pannus was sized and clipped accordingly.
I positioned the heart to expose the distal right coronary at the posterior descending artery. A [place] blade was used to expose the coronary and perform the arteriotomy. Coronary Monteiro scissors were used to enlarge the incision. The saphenous vein
was trimmed and beveled to an appropriate size. The distal anastomosis was performed using 7-0 prolene in an end-to-side fashion. Antegrade cardioplegia was administered into the graft. Appropriate hemostasis and flow were confirmed. The graft was
measured for length to the aorta and cut. A suitable site on the obtuse marginal was chosen. We dissected and prepared the distal target in a similar fashion. An end-to-side anastomosis was created with a 7-0 prolene. Antegrade cardioplegia was
administered into the graft. Appropriate hemostasis and flow were confirmed. The diagonal target was then prepared in a similar fashion. The underbelly of the vein graft was incised and a phed-it-nxaj anastomosis was created 7-0 Prolene in a
running fashion. I then occluded the distal end of the sequential graft and gave test dosing of antegrade down the graft in order to assess for hemostasis and flow of the diagonal. There is excellent flow and hemostasis. The graft was measured
for length to the aorta and cut. A suitable target on the mid/distal left anterior descending was identified. We dissected and prepared the distal target in a similar fashion. We retrieved the BRISENO from the chest and created a pericardial opening
while being cognizant of the phrenic nerve to facilitate the course of the mammary. The distal end of the mammary was prepped and beveled to size. We verified orientation and length of the JAMI and found brisk flow. An end-to-side anastomosis was
created with a 7-0 prolene. We temporarily released the bulldog clamp on the mammary to inspect flow. Perfusion to the LAD territory was visualized and hemostasis was confirmed. The bull clamp was replaced on the mammary. The heart was filled and
the root was distended with antegrade cardioplegia to make final assessment of graft length and orientation. We created 2 aortotomies using a #11 blade then a 4.0mm aortic punch. The proximal anastomoses were created in an end-to-side fashion using
6-0 prolene. At the the same time, we re-warmed to 36.5 degrees centigrade. The bulldog clamp was removed from the mammary. Temporary bipolar ventricular pacing wires were placed on the base of the right ventricle additional atrial pacing wires were
placed at the SVC right atrial junction. The patient was placed in a Trendelenburg position and flows on bypass were lowered. The aortic cross clamp was removed and flows were slowly brought back up. A 30-gauge needle was used to de-air the vein
grafts. All bypass grafts were inspected and were free from kinking or twisting. The distal and proximal anastomoses appeared hemostatic. Once transesophageal echocardiography appeared satisfactory for de-airing, the flows were temporarily lowered
for root vent removal. After verifying acceptable parameters, we initiated weaning from cardiopulmonary bypass. Once we were off cardiopulmonary bypass, the venous cannula was clamped and removed. A test dose of protamine was administered and the
patient was monitored for any adverse reaction before resuming protamine. Once half of the protamine dose was delivered, pump suckers were turned off and the systolic blood pressure was lowered for aortic decannulation. The aortic cannula was
removed and pursestrings were tied down. All cannulation sites were oversewn with a 4-0 prolene. The mammary bed was inspected and hemostasis was confirmed. Once the mediastinum was hemostatic, 19Fr Alessio drain was placed in the left pleural cavity
and two 24Fr Alessio drains were placed within the pericardium. The sternum was approximated with 4 #7 single and 3 #8 double stainless steel wires. A single gold curved box plate was placed at the sternal manubrial junction. These were secured with
16mm x 4 screws. Fascia was approximated with #1 vicryl suture. The subcutaneous, dermis and epidermis were closed in layers in a running fashion. The skin wound was cleansed and dressed.
All instrument, sponge, and needle counts were confirmed to be correct x 2 at the end of the operation. The patient was transferred to the cardiac intensive care unit in critical but stable condition.
I, Dr. Govind Martin, was present, scrubbed for, and performed all critical elements of this procedure.
Govind Martin MD, MS
Cardiothoracic Surgeon
[facility]
This operative dictation was created using the [employer] dictation system. Please excuse any grammatical, typographical, or 'sound alike' errors
[2024-02-23 12:06] LABS: Glucose - Point of Care 84 mg/dl (70-99)
[2024-02-23 12:19] LABS: B.E. -0.9 mmol/L; HCO3 25.3 mmol/L (21-28); Ionized Calcium 1.27 mMOL/L (1.15-1.33); O2 Saturation % 98.8 % (94-98); PCO2 48 mmHg (35-48); PO2 96 mmHg (83-108); Potassium 3.9 mMOL/L (3.5-5.1); Sodium 141 mMOL/L (136-145); pH 7.33 (7.35-7.45)
[2024-02-23 12:21] LABS: Hematocrit 30.9 % (39.0-52.0); Hemoglobin 10.1 g/dL (13.0-18.0); Platelet Count 202 10^3/uL (130-400)
[2024-02-23 12:27] LABS: Mixed Venous O2 Saturation 84.5 %
[2024-02-23 12:29] LABS: INR 1.29; PT 15.9 Sec (11.4-14.6)
[2024-02-23 12:30] LABS: APTT 33.9 Sec (23.4-35.0)
[2024-02-23 12:34] LABS: Blood Urea Nitrogen 24 mg/dl (9-20); Estimated Creatinine Clearance 70 ml/min; Glucose 86 mg/dl (70-99); Magnesium 2.7 mg/dl (1.6-2.3)
[2024-02-23] MEDS: VITAMIN B1 PO (12:35)
[2024-02-23] MEDS: NEURONTIN PO ×2 (12:35→15:17)
[2024-02-23] MEDS: ANCEF 10 IV ×2 (12:35)
[2024-02-23] MEDS: FOLVITE PO (12:35)
[2024-02-23] MEDS: KCL 50 IV ×2 (12:36→13:38)
[2024-02-23] MEDS: NSS 500 IV (12:36)
--- NOTE | 2024-02-23 12:46 | PTCARENOTE ---
Pt received from [facility] at 1155; Sedated and intubated; NSR rhythm on monitor; VSS; Epicardial AV-wires present with temporary pacermaker settings DDI 40/8/0.5/9/2; +1 DP and +2 radial pulses present; Lungs diminished at bases; ETT size 8 positioned
and secured at 24 cm right lip; Ventilator settings SIMV 500/14/5/5 FiO2 40%; CTx3 to -20 cm wall suction draining bloody drainage - no air leak, tidaling, or crepitus noted; Normoactive BS; Triplett catheter in place draining clear, yellow urine;
Sternal Midline Incision glued and approximated - CDI, right leg wrapped in Laurent wrap - CDI, right groin puncture site sutured and approximated - CDI, LLE with scattered scabs KARLA; A-line in left radial artery, Jazz floated to 45 cm in right IJ
Cordis - all lines zeroed and level; PIVx1 #18 right wrist; Levo/insulin/precedex/Cardene infusing - see nursing flowsheets for further details; Potassium repleted x2; See nursing documentation for further details.
CO: 4.44
CI: 2.51
SVR: 972
[2024-02-23 13:00] LABS: Glucose - Point of Care 130 mg/dl (70-99)
[2024-02-23] MEDS: TYLENOL PO (13:39)
[2024-02-23 13:59] LABS: Glucose - Point of Care 131 mg/dl (70-99)
--- NOTE | 2024-02-23 14:00 | PTCARENOTE ---
RT in room and patient placed on CPAP. ABG's due at 1430
--- NOTE | 2024-02-23 14:12 | W.PN.UPDATE ---
Update Note
Progress Note Update
IV fluids: 1800
U.O.:� 500
UF:� 1300
Blood:� None
Wires:� A+V
Inotropes:� None
Pressors:� Levophed
Sedatives:� Precedex
�
NEURO: sedated on precedex, pupils +3mm B/L
RESP: #8OT @25cm> 500/60%/14/5. Lungs clear B/L. 2 mediastinal (20cc on arrival) and L pleural (10cc on arrival) chest tubes to -20cm suction. Sanguineous drainage
CV: RRR +S1, S2, no S3, no�rub, no murmur. Dermabond to median sternotomy. RIJ w/[place] locked @ X46cm. [place] [address]; CVP 11; CI 2.5
ABD: round, soft, no BS
EXT: no edema, +2/4 DP pulses B/L, no femoral bruit,RLE JAZ wrap intact; Left radial A-line intact
: Triplett with clear yellow urine
�
A/P: POD #0 s/p CABG x4
SHAAN: EF� 40%post
- wean and extubate
- Monitor CT and urine output
- Follow up labs and CXR
- Wean levophed for maps >65
- Will start ASA tonight
- EKGdone
- repeat TTE on thursday
- Cards consulted
�
# acute surgical blood loss anemia-expected
- trend CBC
�
# Hyperlipidemia
- resume�statin when tolerating PO
[2024-02-23 14:31] LABS: B.E. -1.4 mmol/L; HCO3 24.3 mmol/L (21-28); Ionized Calcium 1.22 mMOL/L (1.15-1.33); O2 Saturation % 99.5 % (94-98); PCO2 44 mmHg (35-48); PO2 131 mmHg (83-108); Potassium 4.9 mMOL/L (3.5-5.1); Sodium 141 mMOL/L (136-145); pH 7.35 (7.35-7.45)
--- NOTE | 2024-02-23 14:53 | PTCARENOTE ---
ABG's reviewed; RT at bedside; Patient extubated at 1450 and placed on 6L NC.
[2024-02-23 15:00] LABS: Glucose - Point of Care 91 mg/dl (70-99)
[2024-02-23] MEDS: TORADOL 15 MG IV (15:18)
[2024-02-23] MEDS: PACERONE PO (15:18)
[2024-02-23 16:00] LABS: Glucose - Point of Care 106 mg/dl (70-99)
[2024-02-23 16:25] LABS: Hemoglobin 10.5 g/dL (13.0-18.0); Platelet Count 242 10^3/uL (130-400)
[2024-02-23] MEDS: LOW STRENGTH ASPIRIN 81 MG PO (16:51)
[2024-02-23 16:56] LABS: Glucose - Point of Care 113 mg/dl (70-99)
[2024-02-23] MEDS: ANCEF 5 IV (17:14)
[2024-02-23] MEDS: DILAUDID 0.25 MG IV (17:16)
[2024-02-23] MEDS: LACTATED RINGERS 250 ML IV (17:31)
--- NOTE | 2024-02-23 17:57 | PTCARENOTE ---
Pain management ongoing - given PRN IV Toradol at 1518 with good effect and patient resting comfortably after PRN IV Dilaudid 0.25 mg at 1716; Levo infusing increasing and flat CVP 10 - LR Bolus given after speaking with CVPA Megan C. and Levo
infusion decreased
[2024-02-23 19:11] LABS: Glucose - Point of Care 95 mg/dl (70-99)
[2024-02-23] MEDS: ROXICODONE 5 MG PO (19:13)
[2024-02-23] MEDS: SENOKOT-S PO (20:04)
--- NOTE | 2024-02-23 20:30 | PTCARENOTE ---
Received pt from [facility]. pt resting comfortably in bed. family at bedside. pt is AAOx4, states pain is 5/10, see MAR. NSR on monitor, VSS. heart sounds audible, rub prestent, radial and DP pulse palpable, no edema noted, temp epicardial AV wires
set to DDI A-rate 40, MA 8, Mv 0.5, V- rate 40, MA 9, Mv 2. lungs diminishes at throughout, spo2 98% on 2LNC, x2 MS CT and left pleural CT to -20 wall suction, no air leaks, no tidaling, no crepitus. +BS x 4 quadrants, abdomen soft non tender,
denies nausea. pt voiding clear yellow urine via emmanuel catheter. surgical sites maintained. right IJ cordis, swan @45, left radial A-line, and PIV all maintained, leveled, and zeroed. insulin gtt infusing. call retana within reach. will continue to
monitor.
[2024-02-23 21:02] LABS: Glucose - Point of Care 117 mg/dl (70-99)
[2024-02-23] MEDS: NEURONTIN 100 MG PO (22:13)
[2024-02-23] MEDS: LIPITOR 80 MG PO (22:13)
[2024-02-23] MEDS: PACERONE 200 MG PO (22:13)
[2024-02-23] MEDS: TYLENOL 1000 MG PO (22:13)
[2024-02-23] MEDS: DILAUDID 0.5 MG IV (22:13)
[2024-02-23 23:03] LABS: Glucose - Point of Care 95 mg/dl (70-99)
[2024-02-24] VITALS (31 sets, daily range): BP systolic 85–124; BP diastolic 58–91; PULSE 87; O2SAT 95–96; BMI 26.1
--- NOTE | 2024-02-24 | PTCARENOTE ---
Pt assessment unchanged. VSS. NSR on monitor. on going pain management. call retana within reach will continue to monitor.
[2024-02-24] MEDS: ROXICODONE 5 MG PO ×4 (00:01→19:33)
[2024-02-24 01:10] LABS: Glucose - Point of Care 101 mg/dl (70-99)
[2024-02-24] MEDS: ANCEF 5 IV ×2 (01:16→10:12)
[2024-02-24] MEDS: TORADOL 15 MG IV ×2 (01:17→16:01)
--- NOTE | 2024-02-24 01:25 | PTCARENOTE ---
Pt's SBP > 130, MAP 83. Cardene on at 2.5mg/hr per CVPA. will continue to monitor.
[2024-02-24] MEDS: DILAUDID 0.5 MG IV (02:41)
[2024-02-24 03:02] LABS: Glucose - Point of Care 108 mg/dl (70-99)
[2024-02-24 03:09] LABS: Hematocrit 29.8 % (39.0-52.0); Hemoglobin 9.8 g/dL (13.0-18.0); Mean Corp Hgb Conc. 32.9 g/dL (33.0-37.0); Mean Corpuscular Volume 97.4 fL (80.0-94.0); Platelet Count 218 10^3/uL (130-400); Red Blood Cell Count 3.06 10^6/uL (4.70-6.10); White Blood Cell Count 11.6 10^3/uL (4.8-10.8)
[2024-02-24 03:20] LABS: Blood Urea Nitrogen 31 mg/dl (9-20); Calcium 8.8 mg/dl (8.4-10.2); Carbon Dioxide 23 mmol/L (22-30); Chloride 108 mmol/L (98-107); Estimated Creatinine Clearance 70 ml/min; Glucose 96 mg/dl (70-99); Magnesium 2.4 mg/dl (1.6-2.3); Potassium 4.5 mmol/L (3.5-5.1); Sodium 142 mmol/L (135-145); eGFR > 60.00
--- NOTE | 2024-02-24 03:50 | W.PN.CT ---
Today's Communication / Plan
-
-pod #1
-CI 2.59, CO 4.58. Drips: Insulin only. Levo is off
-CT output: 2meds 45/120, L pleur 90/215 in 12/24 hrs
-delined
-Triplett dcd
-d/c insulin
-suspect pericarditis/+rub
-current meds (ASA, Plavix, Lipitor, Lopressor, Amio, Protonix, iv iron)
-plans for follow-up Echo on 02/25 (ordered)
-encourage IS, OOB
Assessment / Plan
-
- Multivessel coronary disease involving the LAD- s/p CABG x 4 (In situ BRISENO to LAD, Ao to RSVG to diagonal sequential to OM, Ao to RSVG to RPDA) and LAAE [35 mm clip] by Dr. Martin on 02/23/24, pod #1
- Intraop SHAAN: LVEF preop was severely reduced approximate 20%. There was significant regional wall motion abnormalities particular towards the apex and basal inferior wall. Following surgery his EF improved significantly to 40% on very low-dose
dobutamine. 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 No apical thrombus on SHAAN. His left atrial appendage was verified to be free of any thrombus or debris preoperatively and was totally occlusive
postoperatively.
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
- Severely reduced left ventricular ejection fraction of 20%
- Hypertension
- Hyperlipidemia
- Significant atherosclerotic disease of the aorta
- Carotid stenosis, status post R TCAR. US with patent R carotid stent and <50% L carotid
- Osteoarthritis
- Significant tobacco abuse, [id number] history of smoking, quit 2022
- Former daily EtOH, now few beers/week
- Mild pulmonary hypertension
- Functional mitral valve insufficiency, mild
- Status post colorectal surgery and adjuvant chemotherapy for colorectal cancer within the last year
- Acute postop blood loss anemia- stable
- Acute postop atelectasis
- Acute postop hypovolemia with subsequent hypervolemia
Discussed patient care with: Nursing and Care Team
Subjective
Procedure
s/p CABG x 4 (In situ BRISENO to LAD, Ao to RSVG to diagonal sequential to OM, Ao to RSVG to RPDA) and LAAE [35 mm clip] by Dr. Martin on 02/23/24
-
Date of Service: February 23, 2024
Objective Data
-
Lab Results
02/23/24 15:57
02/23/24 12:04
PT 15.9 Sec (11.4-14.6) H 02/23/24 12:04
INR 1.29 02/23/24 12:04
APTT 33.9 Sec (23.4-35.0) 02/23/24 12:04
Vital Signs
Vital Signs
Temp Pulse Resp BP Pulse Ox
97.8 F 85 12 101/70 98
02/23/24 23:00 02/23/24 23:05 02/23/24 23:05 02/23/24 23:00 02/23/24 23:05
CT Intake/Output/Weight
02/23/24 02/23/24 02/24/24
06:59 18:59 06:59
Intake Total 747.6 / 922.2 174.6 / 922.2
Output Total 1075 / 1415 340 / 1415
Balance -327.4 / -492.8 -165.4 / -492.8
SaO2: 98
Physical Exam
-
General: Awake and AOx3
Cardiovascular: Regular rate & rhythm, No Murmurs and Rub
Respiratory: Decreased Breath Sounds
Sternum: Stable
Incision: Clean, Dry and Intact
Extremities: No Edema (warm b/l)
Abdomen: soft, nondistended, nontender, decreased + bowel sounds
Data Reviewed
-
Lab Results: Results Reviewed
Medications: Active Meds Reviewed
Chest X-Ray: Report Reviewed and Image Reviewed
ECG: Report Reviewed and Image Reviewed
--- NOTE | 2024-02-24 04:18 | PTCARENOTE ---
Pt assessment unchanged. NSR on monitor. VSS. on going pain management. Levo and Cardene gtt are off. Labs drawn and sent. pt de-lined per CVPA. call retana within reach will continue to monitor
[2024-02-24 04:58] LABS: Glucose - Point of Care 74 mg/dl (70-99)
[2024-02-24] MEDS: TYLENOL 1000 MG PO ×3 (06:00→21:30)
[2024-02-24 06:17] LABS: Glucose - Point of Care 98 mg/dl (70-99)
[2024-02-24 07:30] LABS: Glucose - Point of Care 97 mg/dl (70-99)
[2024-02-24] MEDS: NSS IV (07:34)
--- NOTE | 2024-02-24 08:00 | PTCARENOTE ---
Assumed care of patient. Walking rounds completed with previous RN. Pt assessed while he was sitting in the chair. pt alert and oriented x4. Rates sternal pain 6/10-see MAR. Denies shortness of breath and nausea. MEDRANO with equal strength throughout.
NSR on tele with rates in the 80s-90s. BP 103/68. +Rub. Bilateral radial and DP pulses palpable. No edema noted. Epicardial AV wires set to DDI back up, no pacing noted. POX 99% on 2L, titrated to RA, POX 95%. Lungs diminished in the bases. IS
encouraged-1000mL with significant encouragement. Occasional productive cough with larkin sputum. Left pleural chest tube to -20cm suction draining serosanguinous fluid. Mediastinal chest tubes x2 y-sited to 1 atrium to -20cm suction draining
serosanguinous fluid. No air leaks, tidaling, crepitus noted. Abdomen soft, nontender. Hypoactive BS. Pt reports passing gas. Due to void post emmanuel removal at 0600. Sternal incision approximated with skin glue, BAR ASSISTANT. Chest tube dressing CDI. Right
groin puncture site approximated with skin glue, BAR ASSISTANT. Right SVG harvest approximated with skin glue, JAZ wrap CDI. Right IJ cordis intact infusing NSS KVO. Left wrist 18g PIV intact infusing insulin gtt per Critical Care Glycemic Protocol. See MAR
for medication administration. See worklist for complete nursing assessment. Plan of care reviewed and patient in agreement.
[2024-02-24] MEDS: PLAVIX 75 MG PO (08:11)
[2024-02-24] MEDS: BACTROBAN 2% OINTMENT 1 APPLIC NASAL ×2 (08:11→19:38)
[2024-02-24] MEDS: FLUSH (NSS) 1 FLUSH IV (08:11)
[2024-02-24] MEDS: LIDOCAINE 4% PATCH 1 PATCH TOPICAL (08:11)
[2024-02-24] MEDS: PROTONIX 40 MG PO (08:11)
[2024-02-24] MEDS: VITAMIN B1 100 MG PO (08:11)
[2024-02-24] MEDS: PACERONE 200 MG PO ×3 (08:12→21:30)
[2024-02-24] MEDS: MAGNESIUM OXIDE 500 MG PO ×2 (08:12→19:33)
[2024-02-24] MEDS: VITAMIN B-12 1000 MCG PO (08:12)
[2024-02-24] MEDS: FOLVITE 1 MG PO (08:12)
[2024-02-24] MEDS: LOW STRENGTH ASPIRIN 81 MG PO (08:12)
[2024-02-24] MEDS: SENOKOT-S 1 TABLET PO (08:12)
[2024-02-24] MEDS: FLEXERIL 5 MG PO (08:12)
[2024-02-24] MEDS: NEURONTIN 100 MG PO ×3 (08:12→21:30)
[2024-02-24] MEDS: LOPRESSOR 12.5 MG PO (08:12)
--- NOTE | 2024-02-24 08:40 | W.PN.INTV ---
Today's Communication / Plan
Recommendations
Up OOB as tolerated
Pain control
Chest tube management as per CT surgery
Maintain SpO2 88-95%
Outpatient pulmonary follow-up encouraged given continued tobacco use, and COPD seen on PFTs from earlier this month
prn nebulized bronchodilators
Patient is now CVICU�telemetry status. Telecommunications Specialist/Pulmonary service will now sign off. Please reconsult if there are any additional questions/concerns, or if patient's respiratory status deteriorates.
Assessment
-
Assessment: 68-year-old male with a past medical history of tobacco use disorder, mild pulmonary pretension, multivessel CAD, history of appendicitis, alcohol use disorder, cervical/lumbar foraminal stenosis with DDD, right ICA stenosis, bilateral
shoulder osteoarthritis, hyperlipidemia/hypertension and impaired fasting glucose who presents with elective CABG. Patient known to cardiothoracic surgery with last visit with Dr. Martin on 02/04/2024. He was found to have significant multivessel CAD
anterior there were EKG abnormalities via his PCPs office back in February 2023. EF found to be severely low at 30%. CABG workup revealed significant CAD and he underwent a TCAR procedure by vascular surgery. He also was found to be extremely
anemic with colonoscopy showing colon cancer (invasive adenocarcinoma via colonic polypectomy on 06/01/2023). He did later undergo a right-sided hemicolectomy on 07/03/2023. He is also received adjuvant chemotherapy, which is not complete. He
continues to be symptomatic although he is still working full-time with his [employer] business and goes fishing every weekend. Cardiothoracic coronary revascularization was discussed including its risks and benefits, and CABG x 4 was reviewed in
detail. On 02/23/2024, he underwent CABG x 4 with left atrial appendage exclusion with a 35mm clip. There were no immediate complications and he was transferred to the CVICU postoperatively for further care with street cleaning equipment operator services consulted for
additional management/recommendations.
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
glucose, hypertension, ICM, cervical/lumbar foraminal stenosis, cervical/lumbar DDD, alcohol use disorder, right ICA stenosis, bilateral shoulder osteoarthritis
Impression:
#Multivessel CAD with severely reduced LVEF s/p CABG x 4 (POD #1)
#s/p left atrial appendage exclusion with 35mm clip (POD #1)
#Anemia
#Chronic systolic and diastolic heart failure with ICM
#Chronic HFrEF
#Hypertension
#Hyperlipidemia
#Carotid stenosis s/p TCAR
#Significant tobacco abuse with [id number] history of smoking, currently smoking 0.25PPD
#Moderate COPD via PFT from 02/16/2024
Plan:
Patient successfully extubated to nasal cannula on 02/23/2024. He is now on room air breathing comfortably
Maintain SpO2 88-95%
prn nebulized bronchodilators
Encourage incentive spirometer use
Maintain MAP>65
Replete electrolytes with K>4, Mg>2
Monitor chest tube output (mediastinal chest tubes x 2; left pleural chest tube DC'd)
Monitor hemoglobin
Monitor platelet count and coags
Transfuse blood products as needed to maintain Hb>7g/dL, plt>50k (given post-operative status)
CT surgery managing chest tubes
Monitor blood sugar to maintain euglycemia with goal BG 140-180
Insulin drip DC'd
Nicotine patch --> he does qualify for annual LDCT chest for lung cancer screening. This can be discussed in the office and he should see us for COPD management with full PFT with diffusing capacity and lung volumes to further characterize his lung
function as he has moderate severity COPD via spirometry from 02/16/2024
Aspiration precautions
DVT prophylaxis
Early nutrition
Early mobilization
Patient is now CVICU�telemetry status. Telecommunications Specialist/Pulmonary service will now sign off. Thank you for allowing us to be involved in the care of this patient. Please reconsult if there are any additional questions/concerns, or if patient's
respiratory status deteriorates.
Total time spent today was 57 minutes for this encounter. Time includes reviewing laboratory test/imaging results, reviewing pertinent medical records, obtaining and reviewing medical history, performing an appropriate exam, ordering medications,
tests and procedures. Time also includes documentation of this encounter, coordinating patient care and communicating with other healthcare professionals. Total time does not include separately billed tests performed on this date of service.
Subjective Dataa
Subjective Data
Date of Service:
Date of Service: February 24, 2024
Chief Complaint: Telecommunications Specialist Follow Up and Pulmonary Follow Up
Subjective:
Patient was seen and evaluated today at bedside. He denies shortness of breath although has some mild postoperative chest pain. Mediastinal chest tubes x [address]. He is on room air breathing comfortably, saturating 96%. Heart rate 79 BP
114/91. Currently on amiodarone at 1 mg/min. Denies SHAFER, abdominal pain, nausea, fevers or chills.
Review of Systems
General: Other (Negative unless mentioned above)
Objective Data
Data Reviewed
Vital Signs / I&O / Oxygen:
Vital Signs
Temp Pulse Resp BP Pulse Ox
98.1 F 85 16 114/91 95
02/24/24 08:00 02/24/24 09:00 02/24/24 08:00 02/24/24 09:00 02/24/24 09:00
Intake and Output
02/23/24 02/24/24 02/25/24
06:59 06:59 06:59
Intake Total 1069.8 / 1320.3 272.5 / 272.5
Output Total 1830 / 1895 110 / 110
Balance -760.2 / -574.7 162.5 / 162.5
SaO2 [CPAP/PSV] 100
SaO2 [SIMV] 96
SaO2 95
Nasal Cannula flow liters per 2
minute
Physical Exam
General: Respiratory Distress (negative), Comfortable, Chills (negative) and Sweats (negative)
HEENT: Normocephalic and Anicteric
Cardiovascular: S1-S2 and Peripheral Edema (negative)
Respiratory: Wheeze (negative), Crackles (Bibasilar), Rhonchi (negative), Non-Labored Respirations and Chest Tube (Mediastinal chest tubes x 2)
GI: Soft, Non Distended, Non Tender and Normal Bowel Sounds
Neurology: AO x 3 and Tremors (negative)
Skin: Warm, Dry, Cyanosis (negative) and Jaundice (negative)
Labs/Micro/Reports
Lab Data
02/24/24 02:35
02/24/24 02:35
Laboratory Results
02/23/24 02/23/24
12:04 14:21
PT 15.9 H
INR 1.29
APTT 33.9
pH 7.33 L 7.35
pCO2 48 44
pO2 96 131 H
HCO3 25.3 24.3
O2 Delivery Level
[2024-02-24 09:11] LABS: Glucose - Point of Care 132 mg/dl (70-99)
--- NOTE | 2024-02-24 11:00 | PTCARENOTE ---
Pt ambulated in the [place] with RN and cardiac rehab, assisted back to bed. Pt tolerated. Left pleural CT d/c per orders. AV wires insulated. Pt voided 100ml clear yellow urine. Post void bladder scan completed for 75ml. No other acute changes from
previous assessment. Pt resting in bed at this time.
[2024-02-24 11:01] LABS: Glucose - Point of Care 87 mg/dl (70-99)
--- NOTE | 2024-02-24 11:15 | PTCARENOTE ---
assumed care of pt. VSS. no changes in assessment. NSR 80s. POX 95% on room air. CT x2 intact to -20cm wall suction, drainage WNL, no air leak present. AV wires intact and insulated. pt voiding in urinal without difficulty. RIJ cordis intact w KVO
infusing. insulin gtt infusing per protocol--due to be d/c'd at 1200. all surgical sites stable. pt resting comfortably.
[2024-02-24 11:55] LABS: Glucose - Point of Care 83 mg/dl (70-99)
--- NOTE | 2024-02-24 12:25 | PTCARENOTE ---
pt HR 140s @ ~1213. CT UNDERGROUND MINING SECTION FOREMAN Megan at bedside. EKG done showing A.Flutter. orders received for IV Lopressor, Amio bolus, and Amio gtt. pt asymptomatic. BP 99/66.
[2024-02-24] MEDS: FERRLECIT 110 MG IV (13:19)
[2024-02-24] MEDS: LOPRESSOR 5 MG IV (13:19)
[2024-02-24] MEDS: CORDARONE 103 MG IV (13:19)
[2024-02-24] MEDS: CORDARONE 518 MG IV (13:19)
--- NOTE | 2024-02-24 14:44 | CM ---
Reviewed chart. Met with Mr. Espino to review discharge plans. He states he is feeling okay. He states he ambulated in the hallway today. We reviewed a home visit by the Transitional Care Nurse. He is agreeable to a home visit. Prior to
admission he resides with is spouse in a one story home without any steps to enter. Prior to admission he was independent with ambulation and adls. He does not have any DME in the home. He has a prescription plan and uses [facility]. His spouse
will be home to assist in his care if needed. Medical work-up in progress. The discharge plan is to return home with his spouse and a home visit by the Transitional Care Nurse when medically stable.
--- NOTE | 2024-02-24 16:00 | PTCARENOTE ---
no changes in assessment. pt in SR shortly after initiation of Amio gtt. HR 70s. POX 96% on room air. CT output WNL. pt voiding adequately. all surgical sites stable. pt resting comfortably in chair.
[2024-02-24] MEDS: SENOKOT-S PO (19:34)
--- NOTE | 2024-02-24 20:00 | PTCARENOTE ---
Assumed care of patient at 1900. Patient found in chair at time of assessment. Patient is AOx4, follows commands appropriately, moves all extremities. Lung sounds are diminished throughout, patient has an saO2 of 94% on RA, CTx2: 2xmed to one atrium
draining red sanguineous. Heart sounds have a regular rate and rhythm, patient is SR on the monitor with normal palpable pulses, no edema is present and A+V wires are insulated. Patient has active BS and is voiding using urinal. There is a sternal
incision approx with surg adhesive KARLA, R groin puncture approx with surg adhesive KARLA, and RLE incisionx2 approx with surg adhesive KARLA. Patient has R IJ cordis receiving KVO as well as amio gtt at 0.5. There is also a R wrist 18G available for
intermittent infusion. Pain management with Kat 5x1. Blood pressure noted to be somewhat low received confirmation from CT PA to hold beta niharika tonight. All other VSS.
[2024-02-24] MEDS: LIPITOR 80 MG PO (21:30)
--- NOTE | 2024-02-24 23:00 | PTCARENOTE ---
Patient reassessed. VSS. No c/o pain. Amio gtt at 0.5. Remains in SR.
[2024-02-24] MEDS: TOPROL XL PO (23:11)
[2024-02-25] VITALS (19 sets, daily range): BP systolic 80–130; BP diastolic 54–77; BMI 26.7
--- NOTE | 2024-02-25 03:25 | W.PN.CT ---
Today's Communication / Plan
-
-pod #2
-no issues overnight, remains in nsr 70s on Amio drip (stops around 1pm)
-Low BPs--sbp 90s last night, held Toprol, got po Amio
-CT ouput: 2 meds 75/225 in 12/24 hrs
-h/h 8.8 today (9.8 on 02/23, 10.5 on 02/22)
-wean off O2 as tolerated- pOx 96% on 2L
-plans for follow-up Echo on 02/25 (ordered) to evaluate EF
-current meds (ASA, Plavix, Lipitor, Toprol 25 bid, Amio, Protonix, iv iron)
-has A&V pacing wires (insulated)- will need to cut prior to discharge
-continue to ambulate, IS, OOB
Assessment / Plan
-
- Multivessel coronary disease involving the LAD- s/p CABG x 4 (In situ BRISENO to LAD, Ao to RSVG to diagonal sequential to OM, Ao to RSVG to RPDA) and LAAE [35 mm clip] by Dr. Martin on 02/23/24, pod #2
- Intraop SHAAN: LVEF preop was severely reduced approximate 20%. There was significant regional wall motion abnormalities particular towards the apex and basal inferior wall. Following surgery his EF improved significantly to 40% on very low-dose
dobutamine. 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 No apical thrombus on SHAAN. His left atrial appendage was verified to be free of any thrombus or debris preoperatively and was totally occlusive
postoperatively.
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
- Severely reduced left ventricular ejection fraction of 20%
- Hypertension
- Hyperlipidemia
- Significant atherosclerotic disease of the aorta
- Carotid stenosis, status post R TCAR. US with patent R carotid stent and <50% L carotid
- Osteoarthritis
- Significant tobacco abuse, [id number] history of smoking, quit 2022
- Former daily EtOH, now few beers/week
- Mild pulmonary hypertension
- Functional mitral valve insufficiency, mild
- Status post colorectal surgery and adjuvant chemotherapy for colorectal cancer within the last year
- Acute postop blood loss anemia- stable
- Acute postop atelectasis
- Acute postop hypovolemia with subsequent hypervolemia
- Acute postop a-flutter on 02/23 for approx 15 min - tx with 5 iv Lopressor, Amio bolus and drip
Discussed patient care with: Nursing and Care Team
Subjective
Procedure
s/p CABG x 4 (In situ BRISENO to LAD, Ao to RSVG to diagonal sequential to OM, Ao to RSVG to RPDA) and LAAE [35 mm clip] by Dr. Martin on 02/23/24
-
Date of Service: February 25, 2024
Objective Data
-
PT 15.9 Sec (11.4-14.6) H 02/23/24 12:04
INR 1.29 02/23/24 12:04
APTT 33.9 Sec (23.4-35.0) 02/23/24 12:04
Vital Signs
Vital Signs
Temp Pulse Resp BP Pulse Ox
98.9 F 75 20 108/63 97
02/24/24 23:00 02/24/24 23:00 02/24/24 23:00 02/24/24 23:00 02/24/24 23:00
CT Intake/Output/Weight
02/24/24 02/24/24 02/25/24
06:59 18:59 06:59
Intake Total 322.2 / 1320.3 595.5 / 625.5 30 / 625.5
Output Total 755 / 1895 590 / 900 310 / 900
Balance -432.8 / -574.7 5.5 / -274.5 -280 / -274.5
SaO2: 97
Physical Exam
-
General: Awake and AOx3
Cardiovascular: Regular rate & rhythm, No Murmurs and Rub
Respiratory: Decreased Breath Sounds
Sternum: Stable
Incision: Clean, Dry and Intact
Abdomen: soft, nondistended, nontender, decreased + bowel sounds
Extremities: No Edema (warm b/l)
Data Reviewed
-
Lab Results: Results Reviewed
Medications: Active Meds Reviewed
Chest X-Ray: Report Reviewed and Image Reviewed
ECG: Report Reviewed and Image Reviewed
[2024-02-25 04:12] LABS: Hematocrit 26.4 % (39.0-52.0); Hemoglobin 8.8 g/dL (13.0-18.0); Mean Corp Hgb Conc. 33.3 g/dL (33.0-37.0); Mean Corpuscular Hgb 32.5 pg (27.0-31.0); Mean Corpuscular Volume 97.4 fL (80.0-94.0); Mean Platelet Volume 9.4 fL (7.4-10.4); Platelet Count 189 10^3/uL (130-400); Red Blood Cell Count 2.71 10^6/uL (4.70-6.10); White Blood Cell Count 8.9 10^3/uL (4.8-10.8)
[2024-02-25 04:41] LABS: Blood Urea Nitrogen 38 mg/dl (9-20); Calcium 8.3 mg/dl (8.4-10.2); Carbon Dioxide 25 mmol/L (22-30); Chloride 101 mmol/L (98-107); Estimated Creatinine Clearance 63 ml/min; Glucose 158 mg/dl (70-99); Magnesium 2.3 mg/dl (1.6-2.3); Potassium 4.1 mmol/L (3.5-5.1); Sodium 137 mmol/L (135-145); eGFR > 60.00
--- NOTE | 2024-02-25 05:38 | PTCARENOTE ---
Patient reassessed. VSS. No c/o pain. AM hygiene care provided. AM labs obtained. Patient remains in SR on the monitor.
[2024-02-25] MEDS: TYLENOL 1000 MG PO ×3 (06:15→21:15)
[2024-02-25] MEDS: SENOKOT-S PO (06:51)
--- NOTE | 2024-02-25 07:37 | W.PN.CD ---
Today's Communication / Plan
-
Furosemide 40 mg IV x1 and monitor response.
Monitor H/H.
Incentive spirometry.
Ambulate
Chest tube/pain management per CT surgery.
Repeat echocardiogram after chest tubes are removed.
Impression / Plan
-
Impression/Plan: 68M with carotid artery stenosis status post TCAR, ischemic cardiomyopathy, hypertension, dyslipidemia, stage III colon cancer status post hemicolectomy and FOLFOX, and multivessel coronary artery disease who presented for CABG.
#Coronary artery disease
-Chronic.
-S/P 4V CABG (In situ BRISENO to LAD, sequential SVG to diagonal to OM, SVG to RPDA) by Dr. Martin, 02/23/2024.
-EKG with stable, some elevation in V5, EKG in a.m.
-LVEF 25% preop, 40% post op (intraprocedural SHAAN).
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
-Expectant post operative management.
-Encourage incentive spirometry and ambulation.
-Monitor H/H.
#HFrEF/Ischemic cardiomyopathy
-Chronic, improving.
-LVEF 25%, improving to 40% after revascularization.
-Weight 70 kg the day of surgery.
-GDMT as tolerated
-Beta-niharika: Metoprolol succinate
-SGLT2: Restart dapagliflozin 10 mg daily.
-ICD: Reassess LVEF in 3 months
-Trend daily weight, I/O, and BMP.
-Furosemide 40 mg IV x1 and monitor.
#Atrial flutter
-New diagnosis.
-Rate/rhythm control with amiodarone/metoprolol. Convert amiodarone to PO 400 mg BID (until loaded with 10g), then decrease to 200 mg daily.
-CHADS2-Vasc = 4 (CHF, HTN, Age x1, Vascular Disease).
-S/P LAAE (#35 Atriclip).
-I suspect this is post operative AF/Aflutter (possibly due to some post operative volume overload). Maintain amiodarone/metoprolol. Outpatient monitor in 2-4 weeks to see if he has residual AF that will require therapeutic anticoagulation.
Atriclip in place which permits some latitude in anticoagulation timing.
#Anemia
-Acute on chronic.
-Hbg down to 8.8.
-I suspect a high degree of dilution, which we will monitor with diuresis. BUN also up - could indicate hemolysis, but more likely from cardiorenal syndrome.
-His angina was most prominent with anemia, but this should be less of an issue after revascularization.
#Hypertension
#Dyslipidemia, no outpatient fasting lipid panel per my review, fasting lipid panel in a.m.
#Prediabetes, HgbA1c 5.7
#Carotid artery stenosis status post right TCAR
#Colon cancer (T3, N1c, Mo, stage III) status post hemicolectomy and FOLFOX (completed 8 cycles), follows with Dr. Lindsey
#Cervical spinal stenosis with neuropathy
Subjective/Interval History:
EKG yesterday shows atrial flutter in 2:1.
IV metoprolol and amiodarone bolus/gtt given with conversion to NSR.
Weight is up 1.7 kg from yesterday, 2.8 kg from baseline.
SaO2 dipped to 89% on room air.
Hbg down to 8.8.
DATA:
Transthoracic echocardiogram, 02/18/2024:
Dilated left ventricle with severely reduced left ventricular systolic
function.
Left ventricular ejection fraction is 25%.
Evidence of a large LAD infarct involving the anterior/anteroseptal/and the
entire apical myocardial calderon.
Stage I diastolic dysfunction.
Moderate left atrial enlargement. Mild mitral regurgitation.
Moderate aortic valve sclerosis without significant stenosis.
No significant change since the prior study of 05/27/2023.
Intraoperative SHAAN, 02/23/2024:
CONCLUSIONS
Severe LV dysfunction. Overall LVEF calculates to 28% by Alcocer's rule.
Multiple segmental wall motion abnormalities noted - severe apical hypokinesis,
mild basal inferior wall hypokinesis with thinned bulging myocardium, and
moderate mid segment hypokinesis.
Mild concentric left ventricular hypertrophy.
Stage I Diastolic dysfunction.
Mild mitral regurgitation.
Mild tricuspid regurgitation.
Estimated pulmonary artery systolic pressure of 30-35 mmHg.
Mid ascending aorta is mildly dilated measuring 3.5 cm at the level of the RPA.
Mild sessile atheroma seen in the descending aorta.
Mobile atheroma are noted in the distal aortic arch.
Proximal ascending aorta shows calcification anteriorly at the ST junction.
POST OPERATIVE FINDINGS
The patient underwent a CABG and LA appendage clip on bypass. Postop rhythm
remains sinus. RV and LV function are both more vigorous. Overall LVEF is now
approximately 40-45% by 2D estimation (37% by Alcocer's rule). Mid TG segments
are hyperdynamic. Apical segments still show severe hypokinesis. Basal
inferior wall remains thinned but shows only mild hypokinesis. Trace TR. AV,
MV, and PV function all appear normal. Aortic scan is unchanged. Mobile
elements noted preop in the distal arch are still present. The LA appendage
has been clipped with minimal residual basal lumen. No color flow Doppler
noted beyond the clip.
Physical Exam
Vital Signs/Labs
Vital Signs
Temp Pulse Resp BP Pulse Ox
37.2 C 77 20 107/67 89
02/24/24 23:00 02/25/24 06:00 02/24/24 23:00 02/25/24 03:44 02/25/24 05:00
02/23/24 02/24/24 02/25/24
11:59 11:59 11:59
Actual Weight 70 kg 71.1 kg 72.8 kg
02/25/24 03:53
02/25/24 03:53
PT 15.9 Sec (11.4-14.6) H 02/23/24 12:04
INR 1.29 02/23/24 12:04
APTT 33.9 Sec (23.4-35.0) 02/23/24 12:04
Magnesium 2.3 mg/dl (1.6-2.3) 02/25/24 03:53
Physical Exam
Constitutional: No acute distress and Comfortable
EENT: Anicteric and Moist mucous membranes
Cardiovascular: Rhythm & rate is regular, Pedal edema is absent, JVD pressure is normal, S1S2 is normal and Murmur/rub/gallop absent
Respiratory: Respiratory effort normal, Lungs clear to auscul., Wheeze Absent, Crackles Absent and Rhonchi Absent
GI: Soft, Distention absent, Flat, Non tender and Normal bowel sounds
Neuro/Psych: AO x 3
Data Reviewed
-
Date of Service: February 25, 2024
Medical Decision Making: Reviewed Test Results, Independent Historian Assessment, Test Interpretation and Review of Case with other Provider
EKG: Tracing Personally Visualized and interpreted and Report Reviewed by me
Echo: Report Reviewed by me
X-Ray/CT/US/MRI/NUC/PET: Image Personally Visualized and interpreted and Report Reviewed by me
Medical Tests (PFT, Pathology etc): Image Personally Visualized and interpreted and Report Reviewed by me
Labs: Labs Reviewed by me
Old Records: Reviewed
--- NOTE | 2024-02-25 07:56 | PTCARENOTE ---
Received pt from cost accounting analyst RN; pt AAOx3 and resting comfortably in chair; NSR on monitor and VSS; Epicardial A/V wires insulated;lungs diminished; CT x2 to -20 wall suction, no air leak and no crepitus noted; positive bowel sounds; pt voiding
clear yellow urine; +1 lower extremity edema; palpable pulses throughout; all surgical sites C/D/I; see nursing documentation for further details.
[2024-02-25] MEDS: LOW STRENGTH ASPIRIN 81 MG PO (08:04)
[2024-02-25] MEDS: MAGNESIUM OXIDE 500 MG PO ×2 (08:04→19:25)
[2024-02-25] MEDS: SENOKOT-S 1 TABLET PO ×2 (08:04→19:25)
[2024-02-25] MEDS: FOLVITE 1 MG PO (08:04)
[2024-02-25] MEDS: VITAMIN B-12 1000 MCG PO (08:04)
[2024-02-25] MEDS: NEURONTIN 100 MG PO ×3 (08:04→21:15)
[2024-02-25] MEDS: PLAVIX 75 MG PO (08:04)
[2024-02-25] MEDS: PROTONIX 40 MG PO (08:04)
[2024-02-25] MEDS: PACERONE 200 MG PO ×3 (08:04→21:16)
[2024-02-25] MEDS: VITAMIN B1 100 MG PO (08:04)
[2024-02-25] MEDS: LIDOCAINE 4% PATCH TOPICAL (08:05)
[2024-02-25] MEDS: BACTROBAN 2% OINTMENT 1 APPLIC NASAL ×2 (08:05→19:26)
[2024-02-25] MEDS: LASIX 20 MG IV ×2 (09:12)
[2024-02-25] MEDS: TOPROL XL PO (09:13)
[2024-02-25] MEDS: NSS 500 IV (11:27)
--- NOTE | 2024-02-25 11:31 | PTCARENOTE ---
Assessment unchanged; NSR on monitor and VSS; Amiodarone infusing see flow sheet for details;Epicardial A wire pulled by CVPA.
--- NOTE | 2024-02-25 12:17 | CM ---
Reviewed chart. Telephone call to [facility] ( [phone]) to check on co-pay for medications. His co-pay for Entresto is $170.07, Co-pay for Jardiance is $170.07, Co-pay for Xarelto is $142.46 and the co-pay for Farxiga is $145.62. Milton is a
required step therapy, not covered. He is in the coverage gap and he has to spend 6821.93 before his catastrophic level is in. Then he has to start with a new deductible in the new year.
[2024-02-25] MEDS: TORADOL 15 MG IV ×2 (12:25→21:15)
[2024-02-25] MEDS: FERRLECIT 110 MG IV (14:39)
--- NOTE | 2024-02-25 16:09 | PTCARENOTE ---
NSR on monitor and VSS; assessment unchanged; pt ambulated hallway with RN.
--- NOTE | 2024-02-25 20:00 | PTCARENOTE ---
Assumed care of patient at 1900. Patient found oob in chair at time of assessment. Patient is AOx4, follows commands appropriately, moves all extremities. Lung sounds are diminished in the bases, saO2 94% on RA, patient has CTx2: 2xmeds draining red
sanguineous with wall suction. Heart sounds are audible, patient is SR on the monitor, patient has normal palpable radial pulses and weak but palpable pedal. +1 BLE edema is observed. Patient has normal active BS in all four quadrants. Patient is
voiding in the urinal vielka clear. There is a sternal incision approx with surg adhesive COMPLIANCE SPECIALIST, L groin puncture approx with surg adhesive KARLA, and LLE incx2 approx with surg adhesive KARLA. Patient has R IJ cordis receiving KVO, and L wrist 18G. VSS.
[2024-02-25] MEDS: LIPITOR 80 MG PO (21:15)
[2024-02-26] VITALS (11 sets, daily range): BP systolic 92–129; BP diastolic 59–84; PULSE 65; O2SAT 96–97; BMI 26.2
--- NOTE | 2024-02-26 | PTCARENOTE ---
Patient reassessed. VSS. Patient given toradol for pain. Remains SR on the monitor. No other complaints at this time. Patient stable.
[2024-02-26 02:54] LABS: Hematocrit 24.6 % (39.0-52.0); Hemoglobin 8.5 g/dL (13.0-18.0); Mean Corp Hgb Conc. 34.6 g/dL (33.0-37.0); Mean Corpuscular Volume 92.5 fL (80.0-94.0); Mean Platelet Volume 9.3 fL (7.4-10.4); Platelet Count 183 10^3/uL (130-400); Red Blood Cell Count 2.66 10^6/uL (4.70-6.10); Red Cell Dist. Width 14.1 % (11.5-14.5); White Blood Cell Count 7.9 10^3/uL (4.8-10.8)
[2024-02-26 03:07] LABS: Blood Urea Nitrogen 39 mg/dl (9-20); Calcium 8.5 mg/dl (8.4-10.2); Carbon Dioxide 29 mmol/L (22-30); Chloride 100 mmol/L (98-107); Estimated Creatinine Clearance 57 ml/min; Glucose 106 mg/dl (70-99); Magnesium 2.8 mg/dl (1.6-2.3); Potassium 4.1 mmol/L (3.5-5.1); Sodium 138 mmol/L (135-145); eGFR > 60.00
--- NOTE | 2024-02-26 04:33 | W.PN.CT ---
Today's Communication / Plan
-
-pod #3
-no issues overnight, remains in nsr 70s
-Low BPs- held Toprol is held
-CT ouput: 2 meds 70/145 in 12/24 hrs
-h/h 8.5 today (8.8 on 02/24, 9.8 on 02/23, 10.5 on 02/22)
-follow Cr - 1.1 today (0.9 preop)
-Echo today to evaluate EF
-current meds (ASA, Plavix, Lipitor, Toprol 25 bid, Amio, Protonix, iv iron)
-has V pacing wires (insulated)- will need to cut prior to discharge
-continue to ambulate, IS, OOB
Assessment / Plan
-
- Multivessel coronary disease involving the LAD- s/p CABG x 4 (In situ BRISENO to LAD, Ao to RSVG to diagonal sequential to OM, Ao to RSVG to RPDA) and LAAE [35 mm clip] by Dr. Martin on 02/23/24, pod #3
- Intraop SHAAN: LVEF preop was severely reduced approximate 20%. There was significant regional wall motion abnormalities particular towards the apex and basal inferior wall. Following surgery his EF improved significantly to 40% on very low-dose
dobutamine. 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 No apical thrombus on SHAAN. His left atrial appendage was verified to be free of any thrombus or debris preoperatively and was totally occlusive
postoperatively.
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
- Severely reduced left ventricular ejection fraction of 20%
- Hypertension
- Hyperlipidemia
- Significant atherosclerotic disease of the aorta
- Carotid stenosis, status post R TCAR. US with patent R carotid stent and <50% L carotid
- Osteoarthritis
- Significant tobacco abuse, [id number] history of smoking, quit 2022
- Former daily EtOH, now few beers/week
- Mild pulmonary hypertension
- Functional mitral valve insufficiency, mild
- Status post colorectal surgery and adjuvant chemotherapy for colorectal cancer within the last year
- Acute postop blood loss anemia- stable
- Acute postop atelectasis
- Acute postop hypovolemia with subsequent hypervolemia
- Acute postop a-flutter on 02/23 for approx 15 min - tx with 5 iv Lopressor, Amio bolus and drip
Discussed patient care with: Nursing and Care Team
Subjective
Procedure
s/p CABG x 4 (In situ BRISENO to LAD, Ao to RSVG to diagonal sequential to OM, Ao to RSVG to RPDA) and LAAE [35 mm clip] by Dr. Martin on 02/23/24
-
Date of Service: February 26, 2024
Objective Data
-
Lab Results
02/26/24 02:34
02/26/24 02:34
PT 15.9 Sec (11.4-14.6) H 02/23/24 12:04
INR 1.29 02/23/24 12:04
APTT 33.9 Sec (23.4-35.0) 02/23/24 12:04
Vital Signs
Vital Signs
Temp Pulse Resp BP Pulse Ox
98.7 F 81 16 92/62 93
02/25/24 16:08 02/25/24 23:48 02/25/24 16:08 02/25/24 23:48 02/25/24 23:48
CT Intake/Output/Weight
02/25/24 02/25/24 02/26/24
06:59 18:59 06:59
Intake Total 110 / 705.5 253.6 / 333.6 80 / 333.6
Output Total 835 / 1425 1475 / 1790 315 / 1790
Balance -725 / -719.5 -1221.4 / -1456.4 -235 / -1456.4
SaO2: 93
Physical Exam
-
General: Awake and AOx3
Cardiovascular: Regular rate & rhythm, No Murmurs and Rub
Respiratory: Decreased Breath Sounds
Sternum: Stable
Incision: Clean, Dry and Intact
Abdomen: soft, nondistended, nontender, decreased + bowel sounds
Extremities: No Edema (warm b/l)
Data Reviewed
-
Lab Results: Results Reviewed
Medications: Active Meds Reviewed
Chest X-Ray: Report Reviewed and Image Reviewed
ECG: Report Reviewed and Image Reviewed
--- NOTE | 2024-02-26 04:52 | PTCARENOTE ---
Patient reassessed. VSS. No c/o pain. Assisted patient to bathroom for possible BM but only flatus present. AM labs obtained. Remains SR on the monitor. Placed on 2L via NC at 0300 for O2 sats in mid to high 80s.
[2024-02-26] MEDS: TYLENOL 1000 MG PO ×3 (06:52→22:37)
--- NOTE | 2024-02-26 07:13 | PTCARENOTE ---
Patient arrived for SDA for AVR, LAAC with Dr. Martin. NPO PMN and showers completed at home. Vital signs obtained. Admission completed. Clipped and prepped. Transferred to [facility] at 0630
--- NOTE | 2024-02-26 07:23 | W.PN.CD ---
Today's Communication / Plan
-
Repeat echo.
Hold diuretics today.
Maintain amiodarone, hold further metoprolol.
Ambulate.
Incentive spirometry.
Pain/chest tube management per CT surgery.
Monitor H/H.
Impression / Plan
-
Impression/Plan: 68M with carotid artery stenosis status post TCAR, ischemic cardiomyopathy, hypertension, dyslipidemia, stage III colon cancer status post hemicolectomy and FOLFOX, and multivessel coronary artery disease who presented for CABG.
#Coronary artery disease
-Chronic.
-S/P 4V CABG (In situ BRISENO to LAD, sequential SVG to diagonal to OM, SVG to RPDA) by Dr. Martin, 02/23/2024.
-EKG with stable, some elevation in V5, EKG in a.m.
-LVEF 25% preop, 40% post op (intraprocedural SHAAN).
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
-Expectant post operative management.
-Encourage incentive spirometry and ambulation.
-Monitor H/H.
-Encourage incentive spirometry, ambulation today.
-Chest tube/pain management per CT surgery.
#HFrEF/Ischemic cardiomyopathy
-Chronic, improving.
-LVEF 25%, improving to 40% after revascularization.
-Weight 70 kg the day of surgery.
-GDMT as tolerated
-Beta-niharika: Metoprolol succinate
-SGLT2: Restart dapagliflozin 10 mg daily.
-ICD: Reassess LVEF in 3 months
-Trend daily weight, I/O, and BMP.
-Hold diuretics today.
-Repeat echocardiogram today.
#Atrial flutter
-New diagnosis.
-Rate/rhythm control with amiodarone 200 mg BID.
-CHADS2-Vasc = 4 (CHF, HTN, Age x1, Vascular Disease).
-S/P LAAE (#35 Atriclip).
-I suspect this is post operative AF/Aflutter (possibly due to some post operative volume overload). Maintain amiodarone. Outpatient monitor in 2-4 weeks to see if he has residual AF that will require therapeutic anticoagulation. Atriclip in
place which permits some latitude in anticoagulation timing.
#Anemia
-Acute on chronic.
-Hbg down to 8.8.
-I suspect a high degree of dilution, which we will monitor with diuresis. BUN also up - could indicate hemolysis, but more likely from cardiorenal syndrome.
-His angina was most prominent with anemia, but this should be less of an issue after revascularization.
#Hypertension
#Dyslipidemia, no outpatient fasting lipid panel per my review, fasting lipid panel in a.m.
#Prediabetes, HgbA1c 5.7
#Carotid artery stenosis status post right TCAR
#Colon cancer (T3, N1c, Mo, stage III) status post hemicolectomy and FOLFOX (completed 8 cycles), follows with Dr. Lindsey
#Cervical spinal stenosis with neuropathy
Subjective/Interval History:
Weight down 1.4 kg from yesterday.
SaO2 93% on RA.
One episode of hypotension yesterday.
Hbg down to 8.5. IV Fe started.
BUN is climbing.
Metoprolol on hold for BP.
DATA:
Transthoracic echocardiogram, 02/18/2024:
Dilated left ventricle with severely reduced left ventricular systolic
function.
Left ventricular ejection fraction is 25%.
Evidence of a large LAD infarct involving the anterior/anteroseptal/and the
entire apical myocardial calderon.
Stage I diastolic dysfunction.
Moderate left atrial enlargement. Mild mitral regurgitation.
Moderate aortic valve sclerosis without significant stenosis.
No significant change since the prior study of 05/27/2023.
Intraoperative SHAAN, 02/23/2024:
CONCLUSIONS
Severe LV dysfunction. Overall LVEF calculates to 28% by Alcocer's rule.
Multiple segmental wall motion abnormalities noted - severe apical hypokinesis,
mild basal inferior wall hypokinesis with thinned bulging myocardium, and
moderate mid segment hypokinesis.
Mild concentric left ventricular hypertrophy.
Stage I Diastolic dysfunction.
Mild mitral regurgitation.
Mild tricuspid regurgitation.
Estimated pulmonary artery systolic pressure of 30-35 mmHg.
Mid ascending aorta is mildly dilated measuring 3.5 cm at the level of the RPA.
Mild sessile atheroma seen in the descending aorta.
Mobile atheroma are noted in the distal aortic arch.
Proximal ascending aorta shows calcification anteriorly at the ST junction.
POST OPERATIVE FINDINGS
The patient underwent a CABG and LA appendage clip on bypass. Postop rhythm
remains sinus. RV and LV function are both more vigorous. Overall LVEF is now
approximately 40-45% by 2D estimation (37% by Alcocer's rule). Mid TG segments
are hyperdynamic. Apical segments still show severe hypokinesis. Basal
inferior wall remains thinned but shows only mild hypokinesis. Trace TR. AV,
MV, and PV function all appear normal. Aortic scan is unchanged. Mobile
elements noted preop in the distal arch are still present. The LA appendage
has been clipped with minimal residual basal lumen. No color flow Doppler
noted beyond the clip.
Physical Exam
Vital Signs/Labs
Vital Signs
Temp Pulse Resp BP Pulse Ox
36.9 C 83 18 92/59 93
02/25/24 23:00 02/26/24 04:00 02/25/24 23:00 02/26/24 02:34 02/26/24 04:35
02/24/24 02/25/24 02/26/24
11:59 11:59 11:59
Actual Weight 71.1 kg 72.8 kg 71.4 kg
02/26/24 02:34
02/26/24 02:34
PT 15.9 Sec (11.4-14.6) H 02/23/24 12:04
INR 1.29 02/23/24 12:04
APTT 33.9 Sec (23.4-35.0) 02/23/24 12:04
Magnesium 2.8 mg/dl (1.6-2.3) H 02/26/24 02:34
Physical Exam
Constitutional: No acute distress and Comfortable
EENT: Anicteric and Moist mucous membranes
Cardiovascular: Rhythm & rate is regular, Pedal edema is absent, JVD pressure is normal, S1S2 is normal and Murmur/rub/gallop absent
Respiratory: Respiratory effort normal and Other (Decreased at bases.)
GI: Soft, Distention absent, Flat, Non tender and Normal bowel sounds
Neuro/Psych: AO x 3
Data Reviewed
-
Date of Service: February 26, 2024
Medical Decision Making: Reviewed Test Results, Independent Historian Assessment and Test Interpretation
EKG: Tracing Personally Visualized and interpreted and Report Reviewed by me
Echo: Tracing Personally Visualized and interpreted and Report Reviewed by me
X-Ray/CT/US/MRI/NUC/PET: Image Personally Visualized and interpreted and Report Reviewed by me
Medical Tests (PFT, Pathology etc): Image Personally Visualized and interpreted and Report Reviewed by me
Labs: Labs Reviewed by me
Old Records: Reviewed
[2024-02-26] MEDS: FOLVITE 1 MG PO (07:54)
[2024-02-26] MEDS: VITAMIN B-12 1000 MCG PO (07:54)
[2024-02-26] MEDS: PROTONIX 40 MG PO (07:54)
[2024-02-26] MEDS: VITAMIN B1 100 MG PO (07:54)
[2024-02-26] MEDS: PLAVIX 75 MG PO (07:54)
[2024-02-26] MEDS: LOW STRENGTH ASPIRIN 81 MG PO (07:54)
[2024-02-26] MEDS: PACERONE 200 MG PO ×4 (07:54→22:38)
[2024-02-26] MEDS: NEURONTIN 100 MG PO ×3 (07:54→22:37)
[2024-02-26] MEDS: SENOKOT-S 1 TABLET PO ×2 (07:54→19:54)
[2024-02-26] MEDS: MAGNESIUM OXIDE PO (07:55)
[2024-02-26] MEDS: BACTROBAN 2% OINTMENT 1 APPLIC NASAL ×2 (07:55→19:54)
[2024-02-26] MEDS: LIDOCAINE 4% PATCH TOPICAL (07:55)
--- NOTE | 2024-02-26 08:15 | PTCARENOTE ---
Received pt from night custodian RN; pt AAOx3 and resting comfortably in chair; NSR on monitor and VSS; Epicardial wires insulated; RIJ Cordis and PIV patent; Lungs diminished; IS to 1000; positive bowel sounds; pt voiding clear yellow urine; +1 lower
extremity edema; palpable pulses; all surgical sites C/D/I; see nursing documentation for further details.
[2024-02-26] MEDS: TOPROL XL 25 MG PO (08:33)
[2024-02-26] MEDS: FLEXBUMIN 100 IV ×3 (08:33→22:38)
--- NOTE | 2024-02-26 09:09 | PTCARENOTE ---
Mediastinal chest tubes X2 removed per [facility] order.
--- NOTE | 2024-02-26 11:38 | PTCARENOTE ---
NSR on monitor and VSS; assessment unchanged; Echo at bedside.
--- NOTE | 2024-02-26 11:46 | CARDSERVDEF ---
Echocardiogram with Definity completed after protocol screening completed. Allergies verified.
Patent IV site: __right wrist 18 G PC___
IV site flushed with 0.9% NaCl pre and post administration.
Diluted bolus method utilized to enhance visualization of ventricular calderon.
Total volume given: _3___ mL
Patient tolerated all procedures well without complications.
[2024-02-26] MEDS: CORDARONE 103 MG IV (13:03)
--- NOTE | 2024-02-26 13:06 | PTCARENOTE ---
A-fib on monitor HR 100-115; updated CV[facility]; amiodarone bolus infusing.
--- NOTE | 2024-02-26 13:16 | PTCARENOTE ---
Pt converted to NSR and VSS.
--- NOTE | 2024-02-26 13:43 | W.PN.ANS.POP ---
Anesthesia Post Operative
- Anesthesia Post Op Note
Vital Signs Stable-See Nursing Note: Yes
Airway Patent: Yes
Adequate Pain Control: Yes
Change in Mental Status: No
Current Postoperative Nausea & Vomiting: No
Anesthesia Complications: No
General Anesthetic Recall: No
Unplanned Admission: No
Post Op Hydration Adequate: Yes
[2024-02-26] MEDS: FERRLECIT 110 MG IV (13:52)
[2024-02-26] MEDS: NSS IV (13:53)
--- NOTE | 2024-02-26 13:55 | CM ---
Reviewed chart. Met with Mr. Espino to review discharge plans. We reviewed his co-pay for Entresto, Jardiance and Farxiga. He states he can not afford the co-pays. He states he is feeling well and maybe able to go home soon. He states he
ambulated in the hallway. He ambulated 400 feet. We reviewed a home visit by the Transitional Care Nurse and he is agreeable to a home visit. Prior to admission he resides with his spouse in a one story home without any steps to enter. Prior to
admission he was independent with ambulation and adls. J=He does not have any DME in the home. He has a prescription plan with [facility] and uses [facility]. He states his spouse will be home to assist in his care if needed. Medical work-up in
progress. The discharge plan is to return home with his spouse and a home visit by the Transitional Care Nurse when medically stable.
--- NOTE | 2024-02-26 16:00 | PTCARENOTE ---
Family at bedside; NSR on monitor and VSS: assessment unchanged.
--- NOTE | 2024-02-26 18:19 | PTCARENOTE ---
A-fib on monitor HR 115s; CVPA updated.
[2024-02-26] MEDS: ROXICODONE 5 MG PO (19:53)
[2024-02-26] MEDS: TOPROL XL 50 MG PO (19:53)
[2024-02-26] MEDS: MAGNESIUM OXIDE 500 MG PO (19:54)
[2024-02-26] MEDS: CALCIUM GLUCONATE 100 IV (20:24)
--- NOTE | 2024-02-26 20:36 | PTCARENOTE ---
pt. received at change of shift. pt. seen and assessed in room. Pt. AOx3 OOB to chair. Tele reading NSR. Pt. walked 1 lap around the unit with RN by his side. RN verbalized plan of care, pt verbalizes plan of care back. Call retana within reach.
Continuing to monitor at this time.
[2024-02-26] MEDS: LIPITOR 80 MG PO (22:37)
[2024-02-27] VITALS (10 sets, daily range): BP systolic 98–141; BP diastolic 63–82; PULSE 73; O2SAT 96–98; BMI 26.1
[2024-02-27 04:12] LABS: Hematocrit 22.8 % (39.0-52.0); Hemoglobin 7.7 g/dL (13.0-18.0); Mean Corp Hgb Conc. 33.8 g/dL (33.0-37.0); Mean Corpuscular Hgb 32.4 pg (27.0-31.0); Mean Corpuscular Volume 95.8 fL (80.0-94.0); Mean Platelet Volume 9.7 fL (7.4-10.4); Platelet Count 175 10^3/uL (130-400); Red Blood Cell Count 2.38 10^6/uL (4.70-6.10); Red Cell Dist. Width 13.7 % (11.5-14.5); White Blood Cell Count 6.6 10^3/uL (4.8-10.8)
[2024-02-27 04:34] LABS: Blood Urea Nitrogen 29 mg/dl (9-20); Calcium 8.2 mg/dl (8.4-10.2); Carbon Dioxide 27 mmol/L (22-30); Chloride 103 mmol/L (98-107); Estimated Creatinine Clearance 70 ml/min; Glucose 99 mg/dl (70-99); Magnesium 2.8 mg/dl (1.6-2.3); Potassium 4.2 mmol/L (3.5-5.1); Sodium 139 mmol/L (135-145); eGFR > 60.00
[2024-02-27] MEDS: TYLENOL 1000 MG PO ×3 (05:03→22:32)
[2024-02-27] MEDS: CALCIUM GLUCONATE 130 MG IV (05:03)
--- NOTE | 2024-02-27 05:25 | PTCARENOTE ---
Repleted calcium with calcium gluconate x2, BP 90s-110s/60s overnight. Remaining NSR overnight. Call retana within reach. Continuing to monitor at this time.
--- NOTE | 2024-02-27 05:43 | W.PN.CT ---
Addendum entered and electronically signed by Dmitry Gallo MD 02/27/24 08:41:
I saw and examined the patient.
The PA's note was reviewed and I agree with the note.
Comment:
POD#4 s/p CABG x 4/ELAA
No issues overnight. Intermittent AFib/flutter postop - converted to NSR at 8pm last evening
- Start DOAC, D/C plavix
- Diuresis today - trend daily Hgb - attempt lasix 20mg IV BID today - follow hemodynamics
- F/U 2-view CXR
- ECHO appreciated (LVEF 30-35%)
- ASA, toprol, amio, lipitor
- OOB/IS/ambulate
Original Note:
Today's Communication / Plan
-
-No major issues overnight. Hemodynamically and neurologically intact
-Has been in and out of A-fib/a-flutter with RVR postop. Non since 8pm yesterday
-Decreased Toprol XL to 25 mg BID, d/t soft BP
-Will discuss DOAC today
-H/h 7.7/22.8 today, likely hemodilutional from Albumin received last night
-Will try gentle diuresis today
-Had an Echo yesterday 02/25 which showed improved EF from 25% to 30-35%
-Cont. current meds (ASA, Plavix, Lipitor, Toprol 25 bid, Amio, Protonix)
-Monitor PW, will cut prior to d/c home
-OOB into chair/Ambulate
-Home likely tomorrow
Assessment / Plan
-
- Multivessel coronary disease involving the LAD- s/p CABG x 4 (In situ BRISENO to LAD, Ao to RSVG to diagonal sequential to OM, Ao to RSVG to RPDA) and LAAE [35 mm clip] by Dr. Martin on 02/23/24, pod #4
- Intraop SHAAN: LVEF preop was severely reduced approximate 20%. There was significant regional wall motion abnormalities particular towards the apex and basal inferior wall. Following surgery his EF improved significantly to 40% on very low-dose
dobutamine. 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 No apical thrombus on SHAAN. His left atrial appendage was verified to be free of any thrombus or debris preoperatively and was totally occlusive
postoperatively.
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
- Severely reduced left ventricular ejection fraction of 20%
- Hypertension
- Hyperlipidemia
- Significant atherosclerotic disease of the aorta
- Carotid stenosis, status post R TCAR. US with patent R carotid stent and <50% L carotid
- Osteoarthritis
- Significant tobacco abuse, [id number] history of smoking, quit 2022
- Former daily EtOH, now few beers/week
- Mild pulmonary hypertension
- Functional mitral valve insufficiency, mild
- Status post colorectal surgery and adjuvant chemotherapy for colorectal cancer within the last year
- Acute postop blood loss anemia- stable
- Acute postop atelectasis
- Acute postop hypovolemia with subsequent hypervolemia
- Acute postop a-flutter on 02/23 for approx 15 min - tx with 5 iv Lopressor, Amio bolus and drip
Discussed patient care with: Cardiology, Nursing, Respiratory Therapy, Pharmacy and Care Team
Subjective
Procedure
s/p CABG x 4 (In situ BRISENO to LAD, Ao to RSVG to diagonal sequential to OM, Ao to RSVG to RPDA) and LAAE [35 mm clip] by Dr. Martin on 02/23/24
-
Date of Service: February 27, 2024
Pt c/o mild incisional pain, otherwise feels well
Objective Data
-
Lab Results
02/27/24 03:51
02/27/24 03:51
PT 15.9 Sec (11.4-14.6) H 02/23/24 12:04
INR 1.29 02/23/24 12:04
APTT 33.9 Sec (23.4-35.0) 02/23/24 12:04
Vital Signs
Vital Signs
Temp Pulse Resp BP Pulse Ox
98.8 F 75 18 99/67 92
02/27/24 03:44 02/27/24 03:42 02/26/24 15:20 02/27/24 03:42 02/27/24 03:44
CT Intake/Output/Weight
02/26/24 02/26/24 02/27/24
06:59 18:59 06:59
Intake Total 120 / 373.6 180 / 580 400 / 580
Output Total 350 / 1825 1120 / 1520 400 / 1520
Balance -230 / -1451.4 -940 / -940 0 / -940
SaO2: 92 (RA)
Physical Exam
-
General: Awake, Oriented and AOx3
Cardiovascular: Regular rate & rhythm, No Murmurs, No Rub and No Gallop
Respiratory: Decreased Breath Sounds
Sternum: Stable
Incision: Clean, Dry, Intact and Dressing Intact
Extremities: Other (+trace edema)
Data Reviewed
-
Lab Results: Results Reviewed
Medications: Active Meds Reviewed
Chest X-Ray: Report Reviewed and Image Reviewed
ECG: Report Reviewed and Image Reviewed
--- NOTE | 2024-02-27 08:00 | PTCARENOTE ---
Assumed care of patient from date night caregiver RN. AAO x 3 sitting up in the chair. Denies complaint, wishes to go home today. SR on monitor. Room air 98% using IS independently. Abdomen soft and non tender. Pt states he had a BM this am. Voiding
w/o issue. Pulses palpable. Surgical sites well approximated with surgical adhesive. Plan for day discussed.
[2024-02-27] MEDS: BACTROBAN 2% OINTMENT 1 APPLIC NASAL (08:33)
[2024-02-27] MEDS: VITAMIN B1 100 MG PO (08:34)
[2024-02-27] MEDS: FOLVITE 1 MG PO (08:34)
[2024-02-27] MEDS: SENOKOT-S PO (08:34)
[2024-02-27] MEDS: VITAMIN B-12 1000 MCG PO (08:34)
[2024-02-27] MEDS: LASIX 20 MG IV (08:34)
[2024-02-27] MEDS: PACERONE 200 MG PO ×3 (08:34→22:33)
[2024-02-27] MEDS: PLAVIX 75 MG PO (08:34)
[2024-02-27] MEDS: LOW STRENGTH ASPIRIN 81 MG PO (08:34)
[2024-02-27] MEDS: PROTONIX 40 MG PO (08:34)
[2024-02-27] MEDS: KCL 20 MEQ PO (08:34)
[2024-02-27] MEDS: NEURONTIN 100 MG PO ×3 (08:34→22:32)
[2024-02-27] MEDS: TOPROL XL PO (08:35)
[2024-02-27] MEDS: LIDOCAINE 4% PATCH TOPICAL (08:39)
[2024-02-27] MEDS: TOPROL XL 25 MG PO ×2 (09:41→20:44)
[2024-02-27] MEDS: NSS IV (10:13)
--- NOTE | 2024-02-27 12:00 | PTCARENOTE ---
Ambulating freely in room. Denies complaint. RT IJ cordis removed per PA order. Pt tolerated w/o issue. VSS. Assessment unchanged from prior.
[2024-02-27] MEDS: LASIX 20 MG PO (16:12)
--- NOTE | 2024-02-27 16:52 | PTCARENOTE ---
Ambulating freely in hallway. Remains in NSR 70. Denies complaint. VSS. Assessment unchanged from prior.
--- NOTE | 2024-02-27 17:51 | PTCARENOTE ---
Rec'd Pt from Carole RIVAS,A+Ox3, offers no complaints. Currently sitting OOB in chair.
[2024-02-27] MEDS: SENOKOT-S 1 TABLET PO (19:34)
[2024-02-27] MEDS: ROXICODONE 5 MG PO (19:35)
[2024-02-27] MEDS: LIPITOR 80 MG PO (22:32)
--- NOTE | 2024-02-27 22:55 | PTCARENOTE ---
Pt received start of shift, HR SR. Sternal incision KARLA. Pt with slight chest discomfort at incision site - PRN Samina (see MAR). Pt OOB in chair, ambulating in room by self. Pt adhering to sternal precautions. Reinforced afib and medication education
with pt. Pt states he is looking forward to hopefully getting discharged tomorrow. IS encouraged.
--- NOTE | 2024-02-28 01:23 | W.PN.CT ---
Addendum entered and electronically signed by Dmtiry Gallo MD 02/28/24 09:22:
I saw and examined the patient.
The PA's note was reviewed and I agree with the note.
Comment:
POD#5 s/p CABG x 4/ELAA
No further AF. OK for D/C
- Cut V-wire
- ASA/Eliquis, BB, amio, lipitor
- OOB/IS/ambulate
- D/C home later today
Original Note:
Today's Communication / Plan
-
Plan:
-No major issues overnight. Hemodynamically and neurologically intact
-No further a-fib/a-flutter since POD#3, will start Coumadin and d/c Plavix
-Tolerating 25 mg BID Toprol XL
-H/h 8.1/24.1, up from 7.7/22.8 yesterday
-BP Tolerated gentle diuresis yesterday, will transition to PO Lasix
-Had an Echo on 02/25 which showed improved EF from 25% to 30-35%
-Cont. current meds (ASA, Plavix, Lipitor, Toprol 25 bid, Amio, Protonix)
-OOB into chair/Ambulate
-Will cut temporary PW per Dr. Martin
-Home today
Assessment / Plan
-
- Multivessel coronary disease involving the LAD- s/p CABG x 4 (In situ BRISENO to LAD, Ao to RSVG to diagonal sequential to OM, Ao to RSVG to RPDA) and LAAE [35 mm clip] by Dr. Martin on 02/23/24, pod #5
- Intraop SHAAN: LVEF preop was severely reduced approximate 20%. There was significant regional wall motion abnormalities particular towards the apex and basal inferior wall. Following surgery his EF improved significantly to 40% on very low-dose
dobutamine. 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 No apical thrombus on SHAAN. His left atrial appendage was verified to be free of any thrombus or debris preoperatively and was totally occlusive
postoperatively.
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
- Severely reduced left ventricular ejection fraction of 20%
- Hypertension
- Hyperlipidemia
- Significant atherosclerotic disease of the aorta
- Carotid stenosis, status post R TCAR. US with patent R carotid stent and <50% L carotid
- Osteoarthritis
- Significant tobacco abuse, [id number] history of smoking, quit 2022
- Former daily EtOH, now few beers/week
- Mild pulmonary hypertension
- Functional mitral valve insufficiency, mild
- Status post colorectal surgery and adjuvant chemotherapy for colorectal cancer within the last year
- Acute postop blood loss anemia- stable
- Acute postop atelectasis
- Acute postop hypovolemia with subsequent hypervolemia
- Acute postop A-fib/a-flutter
Discussed patient care with: Cardiology, Nursing, Respiratory Therapy, Pharmacy and Care Team
Subjective
Procedure
s/p CABG x 4 (In situ BRISENO to LAD, Ao to RSVG to diagonal sequential to OM, Ao to RSVG to RPDA) and LAAE [35 mm clip] by Dr. Martin on 02/23/24
-
Date of Service: February 28, 2024
Pt c/o mild incisional pain, otherwise feels well
Objective Data
-
Lab Results
02/27/24 03:51
02/27/24 03:51
PT 15.9 Sec (11.4-14.6) H 02/23/24 12:04
INR 1.29 02/23/24 12:04
APTT 33.9 Sec (23.4-35.0) 02/23/24 12:04
Vital Signs
Vital Signs
Temp Pulse Resp BP Pulse Ox
98.1 F 78 16 104/73 93
02/27/24 22:34 02/27/24 22:34 02/27/24 22:34 02/27/24 22:34 02/27/24 22:34
CT Intake/Output/Weight
02/27/24 02/27/24 02/28/24
06:59 18:59 06:59
Intake Total 400 / 580 1100 / 1100
Output Total 400 / 1520 300 / 300
Balance 0 / -940 800 / 800
SaO2: 93 (RA)
Physical Exam
-
General: Awake, Oriented and AOx3
Cardiovascular: Regular rate & rhythm, No Murmurs, No Rub and No Gallop
Respiratory: Decreased Breath Sounds (at bases, otherwise clear)
Sternum: Stable
Incision: Clean, Dry, Intact and Dressing Intact
Extremities: Other (+trace edema)
Data Reviewed
-
Lab Results: Results Reviewed
Medications: Active Meds Reviewed
Chest X-Ray: Report Reviewed and Image Reviewed
ECG: Report Reviewed and Image Reviewed
[2024-02-28 02:09] VITALS: BP 129/62
[2024-02-28 02:33] VITALS: BMI 26.0
[2024-02-28 03:15] LABS: Hematocrit 24.1 % (39.0-52.0); Hemoglobin 8.1 g/dL (13.0-18.0); Mean Corp Hgb Conc. 33.6 g/dL (33.0-37.0); Mean Corpuscular Hgb 31.3 pg (27.0-31.0); Mean Corpuscular Volume 93.1 fL (80.0-94.0); Mean Platelet Volume 9.4 fL (7.4-10.4); Platelet Count 205 10^3/uL (130-400); Red Blood Cell Count 2.59 10^6/uL (4.70-6.10); Red Cell Dist. Width 13.8 % (11.5-14.5); White Blood Cell Count 7.9 10^3/uL (4.8-10.8)
[2024-02-28 03:43] LABS: Blood Urea Nitrogen 28 mg/dl (9-20); Calcium 8.9 mg/dl (8.4-10.2); Carbon Dioxide 27 mmol/L (22-30); Chloride 100 mmol/L (98-107); Estimated Creatinine Clearance 53 ml/min; Glucose 100 mg/dl (70-99); Magnesium 2.2 mg/dl (1.6-2.3); Sodium 140 mmol/L (135-145); eGFR > 60.00
[2024-02-28] MEDS: TYLENOL 1000 MG PO (06:07)
[2024-02-28 06:59] VITALS: BP 110/62
[2024-02-28] MEDS: PROTONIX 40 MG PO (08:28)
[2024-02-28] MEDS: VITAMIN B1 100 MG PO (08:28)
[2024-02-28] MEDS: MAGNESIUM OXIDE 500 MG PO (08:28)
[2024-02-28] MEDS: NEURONTIN 100 MG PO (08:28)
[2024-02-28] MEDS: SENOKOT-S 1 TABLET PO (08:28)
[2024-02-28] MEDS: VITAMIN B-12 1000 MCG PO (08:28)
[2024-02-28] MEDS: LOW STRENGTH ASPIRIN 81 MG PO (08:29)
[2024-02-28] MEDS: KCL 10 MEQ PO (08:29)
[2024-02-28] MEDS: TOPROL XL 25 MG PO (08:29)
[2024-02-28] MEDS: ELIQUIS 5 MG PO (08:29)
[2024-02-28] MEDS: KCL 20 MEQ PO (08:29)
[2024-02-28] MEDS: FOLVITE 1 MG PO (08:29)
[2024-02-28] MEDS: ROXICODONE 2.5 MG PO (08:30)
[2024-02-28] MEDS: LIDOCAINE 4% PATCH TOPICAL (08:30)
[2024-02-28] MEDS: LASIX 20 MG PO (08:30)
[2024-02-28] MEDS: PACERONE 200 MG PO (08:30)
[2024-02-28] MEDS: ELIQUIS PO (09:37)
--- NOTE | 2024-02-28 10:09 | PTCARENOTE ---
Pt AOx3, complains of pain, given PRN medication as ordered. Independent OOB. VSS, SR on tele monitor. Call retana within reach.
--- NOTE | 2024-02-28 11:01 | W.DCSUMMARY ---
Discharge Summary
Discharge Data
Date of Admission: 02/23/24
Date of Discharge: 02/28/24
-
Pending Results: No
Hospital Course
Patient was admitted electively on 102 [id number] coronary artery bypass grafting by Dr. Govind Martin. Please refer to his separately dictated operative report for complete details. Postoperatively the patient was transferred to the ICU on Levophed
Precedex and insulin infusions. He was extubated per protocol at 1630. He was given mild fluid resuscitation on postoperative day #0. He was weaned from vasoactive infusions overnight.
Postoperative day #1: Pull chest tube was removed. Low-dose beta-blockers were started. The patient converted to atrial flutter for about 15 minutes amnio bolus and drip were given. IV Lopressor was also given. Beta-blockers were titrated to
effect. The patient ambulated well.
Postoperative day #2: Patient had an recurrent episode of atrial flutter. Amio drip and Coreg were given and the patient converted to sinus rhythm. Pacing wires were removed. Chest tubes were removed. Patient continued to ambulate well. Patient
was weaned to room air.
Postoperative day #3: Patient remains in normal sinus rhythm. Patient was given 25% albumin for hypotension. Patient again went into atrial fibrillation around 1230 and usual atrial fibrillation treatment protocol was initiated. The patient
converted to normal sinus rhythm around 6:30 PM. Beta-blockers again were titrated to effect.
Postoperative day #4: Patient remains in sinus rhythm. Patient received Plavix this morning and therefore we will hold off on starting Eliquis today. Patiently Today for rhythm monitoring. He is ambulating independently on room air and has no
specific complaints.
Postoperative day #5: Patient has remained in sinus rhythm. He is ambulating independently. Eliquis was started this morning. Patient be discharged home today. Discharge instructions reviewed at length with the patient his questions were
answered to his satisfaction. I reviewed specifically sternal precautions with him and he voiced understanding of these instructions.
Please note this dictation was made using voice recognition software. Please excuse any phonetic or grammatical errors as a result.
Discharge Plan
-
Patient Disposition: Home (Routine Discharge)
Discharge Diagnosis/Procedures: - Multivessel coronary disease involving the left anterior descending-status post coronary artery bypass grafting x 4 (In situ left internal mammary artery to left anterior descending, saphenous vein graft sequential
to diagonal and OM, saphenous vein graft to right posterior descending artery) and left atrial pended exclusion [35 mm clip] by Dr. Martin on 02/23/24
-Intraoperative transesophageal echocardiogram: Left ventricular ejection fraction preoperatively was severely reduced approximate 20%. There was significant regional wall motion abnormalities particular towards the apex and basal inferior wall.
Following surgery his ejection fraction improved significantly to 40% on very low-dose dobutamine. 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 No apical thrombus on transesophageal echocardiogram. His
left atrial appendage was verified to be free of any thrombus or debris preoperatively and was totally occlusive postoperatively.
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
- Severely reduced left ventricular ejection fraction of 20%
- Hypertension
- Hyperlipidemia
- Significant atherosclerotic disease of the aorta
- Carotid stenosis, status post right transcarotid artery revascularization. Ultrasound with patent right carotid stent and <50% left carotid
- Osteoarthritis
- Significant tobacco abuse, [id number] history of smoking, quit 2022
- Former daily alcohol, now few beers/week
- Mild pulmonary hypertension
- Functional mitral valve insufficiency, mild
- Status post colorectal surgery and adjuvant chemotherapy for colorectal cancer within the last year
- Acute postoperative blood loss anemia- stable
- Acute postoperative atelectasis
- Acute postoperative hypovolemia with subsequent hypervolemia
- Acute postoperative atrial fibrillation/flutter
Condition: Good
Diet: Low Cholesterol and Low Sodium
Activity: As tolerated
Driving Restrictions: Not until seen by your Dr
Bathing Restrictions: OK to Shower
Other Services: Cardiac Rehab
Specialty Instructions: Weigh Daily- Call MD for wt gain/loss 3 lbs overnight/5 lbs in 1 week
Activity Restrictions/Additional Instructions:
ACTIVITY:
-No strenuous activity: no heavy lifting, pushing, pulling anything over 15 pounds for one month
-continue to use stairs as tolerated
DRIVING RESTRICTIONS:
-No driving for one month or until approved by your surgeon
WOUND CARE:
-Shower daily. Use soap & water.
-No lotions, creams or powders on incision area.
DIET:
-continue a low fat/low cholesterol diet.
-IF you are diabetic, continue carb controlled diet.
CARDIAC REHAB:
-Please make appointment to start in 5-6 weeks with your local hospital program. (See Cardiac Rehabilitation Discharge Booklet).
SPECIALTY INSTRUCTIONS:
-Weigh yourself daily. Call your physician for any weight gain/loss of 3 lbs overnight or 5 lbs in one week.
-REPORT any clicking noise or uneven appearance of your sternum to your surgeon immediately.
-If you smoke, you are instructed to quit. The [place] smoking hotline phone number is [phone]
Referrals:
CT Transitional Care Nurse [Outside] - in one to two days
(
The Cardiothoracic Transitional Care Nurse will call you to set up a visit in 1-2 days.)
[facility]. Cardiac Rehab [Outside] - 04/05/24 1:00 pm
(Cardiac Rehab Orientation appointment is on 04/05/24 at 1:00 pm
The Cardiac Rehab gym is located on the first floor of the [facility].)
Lena Wan CRNP [Specified Professional Personl] - 04/04/24 1:40 pm
Hugh Oh MD [Active] - in four to six weeks (to discuss his COPD seen on PFTs from 02/16/2024 and his tobacco smoking Hx with need for annual LDCT chest for lung cancer screening)
Darell Carver DO [Family Provider] - in four to six weeks (Please make an appointment in four to six weeks. )
Govind Martin MD [Active] - 03/30/24 12:45 pm
Additional Discharge Medication Instructions: Stop isosorbide mononitrate
Prescriptions:
New
acetaminophen 325 mg Tablet
650 mg PO Q4HPRN PRN (Reason: mild pain,headache,temp >101F ) Qty: 0 0RF
nicotine 7 mg/24 hr Patch 24 Hour
7 mg transdermal DAILY 14 Days Qty: 14 0RF
amiodarone 200 mg Tablet
200 mg PO BID 30 Days Qty: 60 0RF
metoprolol succinate 25 mg Tablet Extended Release 24 Hr
25 mg PO BID Qty: 60 2RF
apixaban 5 mg tablet
5 mg PO BID Qty: 60 2RF
oxycodone 5 mg tablet
5 mg PO Q6HPRN PRN (Reason: pain) Qty: 24 0RF
Continued
aspirin 81 mg Tablet,Delayed Release (Dr/Ec)
81 mg PO DAILY
atorvastatin 80 mg tablet
80 mg PO HS
dapagliflozin propanediol [Farxiga] 10 mg Tablet
10 mg PO DAILY Qty: 30 0RF
thiamine HCl (vitamin B1) 100 mg tablet
100 mg PO DAILY
Patient Comments:
not taking
cyanocobalamin (vitamin B-12)
1 tab PO DAILY
Discontinued
folic acid 1 mg Tablet
1 mg PO DAILY Qty: 30 0RF
metoprolol succinate 25 mg Tablet Extended Release 24 Hr
25 mg PO DAILY Qty: 30 0RF
isosorbide mononitrate 30 mg tablet extended release 24 hr
60 mg PO DAILY
Discharge Orders:
Discharge Patient (As Directed); Ordered 02/28/24
Ordered By: Marcial Baltazar
Discharge Date and Time
Print Language: SETSWANA
[2024-02-28 11:37] VITALS: BP 125/78
[2024-02-28 11:39] VITALS: BP 125/78
--- NOTE | 2024-02-29 16:29 | CM ---
Received message from PSYCHOLOGY LECTURER at [facility] Office that is Eliquis is not covered by his insurance. He does not have coverage for Eliquis. It is a step therapy. Called [facility] to give him a one month free coupon. Cardiology Office gave him samples.
(four boxes for him to spanish moss picker at their office. Left message on Mr Espino and also left message for Mrs. Espino.
== END 2024-02-28 12:19 | disposition home or self-care (01) | DRG 235 ==
LOC: IVU 04:59
PROVIDERS: Anesthesiology; Clinical Nurse Specialist Acute Care; ADMITTING PHYSICIAN Thoracic Surgery (Cardiothoracic Vascular Surgery); CONSULT PHYSICIAN Internal Medicine Critical Care Medicine; FAMILY PHYSICIAN Family Medicine
PROC: 021209W Bypass Coronary Artery, Three Arteries from Aorta with Autologous Venous Tissue, Open Approach (ICD-10-PCS; 2024-02-23)
PROC: 06BP4ZZ Excision of Right Saphenous Vein, Percutaneous Endoscopic Approach (ICD-10-PCS; 2024-02-23)
PROC: B24BZZ4 Ultrasonography of Heart with Aorta, Transesophageal (ICD-10-PCS; 2024-02-23)
PROC: 02L70CK Occlusion of Left Atrial Appendage with Extraluminal Device, Open Approach (ICD-10-PCS; 2024-02-23)
PROC: 02100Z9 Bypass Coronary Artery, One Artery from Left Internal Mammary, Open Approach (ICD-10-PCS; 2024-02-23)
PROC: 5A1221Z Performance of Cardiac Output, Continuous (ICD-10-PCS; 2024-02-23)
DX: I25.10 Atherosclerotic heart disease of native coronary artery without angina pectoris (principal); I50.43 Acute on chronic combined systolic (congestive) and diastolic (congestive) heart failure; D62 Acute posthemorrhagic anemia; I48.92 Unspecified atrial flutter; J98.11 Atelectasis; C18.9 Malignant neoplasm of colon, unspecified; I95.9 Hypotension, unspecified; I48.91 Unspecified atrial fibrillation; E86.1 Hypovolemia; I25.5 Ischemic cardiomyopathy; I11.0 Hypertensive heart disease with heart failure; E78.5 Hyperlipidemia, unspecified; I70.0 Atherosclerosis of aorta; I27.20 Pulmonary hypertension, unspecified; I08.0 Rheumatic disorders of both mitral and aortic valves; F17.210 Nicotine dependence, cigarettes, uncomplicated; I65.21 Occlusion and stenosis of right carotid artery; J44.9 Chronic obstructive pulmonary disease, unspecified; R73.03 Prediabetes; M48.02 Spinal stenosis, cervical region
CPT/HCPCS: 93308; 36415; 71045; 71046; 80048; 80053; 81003; 81015; 82248; 82330; 82565; 82805; 82810; 82947; 82962; 83036; 83735; 84132; 84302; 84520; 85014; 85018; 85025; 85027; 85049; 85610; 85730; 86850; 86900; 86901; 86920; 87070; 93005; 93312; 93320; 93321; 93325; 93880; 94002; 94010; 94060; 99406; C1713; J2916; P9047; Q9957

== ENCOUNTER 2024-04-05 14:34 | Outpatient (RCR) | payer MEDICARE, SELFPAY | END 2024-04-05 23:59 | disposition home or self-care (01) | LOC: CRHB 14:34 | PROVIDERS: ATTENDING PHYSICIAN Internal Medicine Cardiovascular Disease | DX: I25.10 Atherosclerotic heart disease of native coronary artery without angina pectoris (principal); Z95.1 Presence of aortocoronary bypass graft | CPT/HCPCS: G0422 ==

== ENCOUNTER → 2024-04-09 10:34 | Outpatient (REF) | payer MEDICARE, SELFPAY ==
[2024-04-09 11:13] LABS: % Basophils 0.9 % (0-2); % Eosinophils 1.9 % (0-6); % Immature Granulocytes 0.3 % (0-0.5); % Monocytes 8.8 % (1.7-9.3); % Neutrophils 63.1 % (42.2-75.2); Absolute Basophils 0.1 10^3/uL (0-0.2); Absolute Eosinophils 0.1 10^3/uL (0-0.7); Absolute Lymphocytes 1.7 10^3/uL (1.2-3.4); Absolute Monocytes 0.6 10^3/uL (0.1-0.6); Absolute Neutrophils 4.4 10^3/uL (1.4-6.5); Hematocrit 36.7 % (39.0-52.0); Hemoglobin 11.7 g/dL (13.0-18.0); Mean Corp Hgb Conc. 31.9 g/dL (33.0-37.0); Mean Corpuscular Hgb 29.8 pg (27.0-31.0); Mean Corpuscular Volume 93.6 fL (80.0-94.0); Mean Platelet Volume 8.7 fL (7.4-10.4); Nucleated Red Blood Cells % 0 % (-); Platelet Count 295 10^3/uL (130-400); Red Blood Cell Count 3.92 10^6/uL (4.70-6.10); Red Cell Dist. Width 14.6 % (11.5-14.5); White Blood Cell Count 6.9 10^3/uL (4.8-10.8)
[2024-04-09 11:32] LABS: ALT (SGPT) 33 U/L (0-50); AST (SGOT) 31 U/L (17-59); Albumin 4.7 g/dl (3.5-5.0); Alkaline Phosphatase 110 U/L (38-126); Direct Bilirubin 0.2 mg/dl (0.0-0.4); HDL Cholesterol 50 mg/dl; LDL Cholesterol, Calculated 127 mg/dl; Total Bilirubin 0.5 mg/dl (0.2-1.3); Total Cholesterol 200 mg/dl (50-199); Total Protein 7.9 g/dl (6.3-8.2); Triglyceride 116 mg/dl (10-149); Very Low Density Lipoprotein 23 mg/dl (0-30)
[2024-04-09 12:01] LABS: CEA 4.67 ng/ml
== END ==
LOC: REG 10:34
PROVIDERS: ATTENDING PHYSICIAN Internal Medicine Hematology & Oncology; FAMILY PHYSICIAN Family Medicine; REFERRING PHYSICIAN Nurse Practitioner
DX: C18.2 Malignant neoplasm of ascending colon (principal); D64.9 Anemia, unspecified; D51.9 Vitamin B12 deficiency anemia, unspecified; E78.5 Hyperlipidemia, unspecified
CPT/HCPCS: 36415; 80061; 80076; 82378; 85025

== ENCOUNTER → 2024-05-03 15:20 | Outpatient (REF) | payer MEDICARE, SELFPAY ==
[2024-05-05 11:49] LABS: Lyme Antibody Screen, EIA Negative (Negative)
== END ==
LOC: REG 15:20
PROVIDERS: ATTENDING PHYSICIAN Nurse Practitioner Family
DX: S50.869A Insect bite (nonvenomous) of unspecified forearm, initial encounter (principal); W57.XXXA Bitten or stung by nonvenomous insect and other nonvenomous arthropods, initial encounter
CPT/HCPCS: 36415; 86618

== ENCOUNTER → 2024-06-02 13:08 | Outpatient (REF) | payer MEDICARE, SELFPAY ==
--- NOTE | 2024-06-02 13:57 | CARDSERVLU ---
Echocardiogram with Lumason completed after protocol screening completed. Allergies verified.
Patent IV site: 22g IV inserted in Right hand
IV site flushed with 0.9% NaCl pre and post administration.
Diluted bolus method utilized to enhance visualization of ventricular calderon.
Total volume given: 5 mL
Patient tolerated all procedures well without complications.
IV d/c'd and bandage applied after pressure held.
== END ==
LOC: RCS 13:08
PROVIDERS: ATTENDING PHYSICIAN Orthopaedic Surgery Hand Surgery; FAMILY PHYSICIAN Family Medicine; OTHER PHYSICIAN Internal Medicine Cardiovascular Disease
DX: M25.512 Pain in left shoulder (principal); M25.511 Pain in right shoulder; I25.5 Ischemic cardiomyopathy; G56.03 Carpal tunnel syndrome, bilateral upper limbs
CPT/HCPCS: 93306; 95886; 95911; Q9950

== ENCOUNTER → 2024-07-09 10:59 | Outpatient (REF) | payer MEDICARE, SELFPAY ==
[2024-07-09 12:28] LABS: % Basophils 0.6 % (0-2); % Eosinophils 0.9 % (0-6); % Immature Granulocytes 0.5 % (0-0.5); % Lymphocytes 22.9 % (20.5-51.1); % Monocytes 8.8 % (1.7-9.3); % Neutrophils 66.3 % (42.2-75.2); Absolute Basophils 0.1 10^3/uL (0-0.2); Absolute Eosinophils 0.1 10^3/uL (0-0.7); Absolute Lymphocytes 1.8 10^3/uL (1.2-3.4); Absolute Monocytes 0.7 10^3/uL (0.1-0.6); Absolute Neutrophils 5.2 10^3/uL (1.4-6.5); Hemoglobin 13.4 g/dL (13.0-18.0); Mean Corp Hgb Conc. 31.9 g/dL (33.0-37.0); Mean Corpuscular Hgb 29.2 pg (27.0-31.0); Mean Corpuscular Volume 91.5 fL (80.0-94.0); Mean Platelet Volume 8.7 fL (7.4-10.4); Nucleated Red Blood Cells % 0 % (-); Platelet Count 294 10^3/uL (130-400); Red Blood Cell Count 4.59 10^6/uL (4.70-6.10); Red Cell Dist. Width 16.3 % (11.5-14.5); White Blood Cell Count 7.8 10^3/uL (4.8-10.8)
[2024-07-09 13:16] LABS: ALT (SGPT) 22 U/L (0-50); AST (SGOT) 25 U/L (17-59); Albumin 4.4 g/dl (3.5-5.0); Alkaline Phosphatase 101 U/L (38-126); Direct Bilirubin 0.2 mg/dl (0.0-0.4); Total Bilirubin 0.5 mg/dl (0.2-1.3); Total Protein 7.4 g/dl (6.3-8.2)
[2024-07-09 13:37] LABS: CEA 5.42 ng/ml
== END ==
LOC: REG 10:59
PROVIDERS: ATTENDING PHYSICIAN Internal Medicine Hematology & Oncology; FAMILY PHYSICIAN Family Medicine
DX: C18.2 Malignant neoplasm of ascending colon (principal); D64.9 Anemia, unspecified; D51.9 Vitamin B12 deficiency anemia, unspecified
CPT/HCPCS: 36415; 80076; 82378; 85025

== ENCOUNTER → 2024-07-23 11:22 | Outpatient (REF) | payer MEDICARE, SELFPAY ==
[2024-07-23 13:35] LABS: ALT (SGPT) 21 U/L (0-50); AST (SGOT) 23 U/L (17-59); Albumin 4.6 g/dl (3.5-5.0); Alkaline Phosphatase 93 U/L (38-126); Blood Urea Nitrogen 16 mg/dl (9-20); Calcium 9.6 mg/dl (8.4-10.2); Carbon Dioxide 29 mmol/L (22-30); Chloride 99 mmol/L (98-107); Glucose 67 mg/dl (70-99); Potassium 4.6 mmol/L (3.5-5.1); Sodium 138 mmol/L (135-145); Total Bilirubin 0.5 mg/dl (0.2-1.3); Total Protein 7.4 g/dl (6.3-8.2); eGFR > 60.00
== END ==
LOC: REG 11:22
PROVIDERS: ATTENDING PHYSICIAN Internal Medicine Hematology & Oncology; FAMILY PHYSICIAN Family Medicine
DX: C18.2 Malignant neoplasm of ascending colon (principal); D64.9 Anemia, unspecified; D51.9 Vitamin B12 deficiency anemia, unspecified
CPT/HCPCS: 36415; 80053

== ENCOUNTER → 2024-07-25 07:24 | Outpatient (REF) | payer MEDICARE, SELFPAY | LOC: RAD 07:24 | PROVIDERS: ATTENDING PHYSICIAN Internal Medicine Hematology & Oncology; FAMILY PHYSICIAN Family Medicine | DX: C18.2 Malignant neoplasm of ascending colon (principal); D64.9 Anemia, unspecified; D51.9 Vitamin B12 deficiency anemia, unspecified | CPT/HCPCS: 71260; 74177; Q9967 ==

== ENCOUNTER → 2025-01-09 11:26 | Outpatient (REF) | payer MEDICARE, SELFPAY ==
[2025-01-09 12:55] LABS: Hematocrit 39.8 % (39.0-52.0); Hemoglobin 13.2 g/dL (13.0-18.0); Mean Corp Hgb Conc. 33.2 g/dL (33.0-37.0); Mean Corpuscular Volume 94.5 fL (80.0-94.0); Nucleated Red Blood Cells % 0 % (-); Platelet Count 288 10^3/uL (130-400); Red Cell Dist. Width 14.1 % (11.5-14.5)
[2025-01-09 13:59] LABS: ALT (SGPT) 16 U/L (0-50); AST (SGOT) 26 U/L (17-59); Albumin 4.8 g/dl (3.5-5.0); Alkaline Phosphatase 75 U/L (38-126); Blood Urea Nitrogen 14 mg/dl (9-20); Calcium 9.9 mg/dl (8.4-10.2); Carbon Dioxide 30 mmol/L (22-30); Chloride 104 mmol/L (98-107); Glucose 84 mg/dl (70-99); HDL Cholesterol 55 mg/dl; LDL Cholesterol, Calculated 217 mg/dl; Potassium 4.9 mmol/L (3.5-5.1); Sodium 141 mmol/L (135-145); Total Protein 7.6 g/dl (6.3-8.2); Very Low Density Lipoprotein 31 mg/dl (0-30); eGFR > 60.00
== END ==
LOC: REG 11:26
PROVIDERS: ATTENDING PHYSICIAN Internal Medicine Cardiovascular Disease; FAMILY PHYSICIAN Family Medicine
DX: I25.118 Atherosclerotic heart disease of native coronary artery with other forms of angina pectoris (principal); Z01.810 Encounter for preprocedural cardiovascular examination; R07.89 Other chest pain; I25.5 Ischemic cardiomyopathy; I65.23 Occlusion and stenosis of bilateral carotid arteries; Z98.890 Other specified postprocedural states; Z95.828 Presence of other vascular implants and grafts; I10 Essential (primary) hypertension; E78.2 Mixed hyperlipidemia; C18.2 Malignant neoplasm of ascending colon; Z95.1 Presence of aortocoronary bypass graft; Z95.818 Presence of other cardiac implants and grafts; I48.92 Unspecified atrial flutter; Z90.49 Acquired absence of other specified parts of digestive tract
CPT/HCPCS: 36415; 80053; 80061; 84443; 85025